=== PATIENT | female | born 1970 | race Caucasian/White ===

== ENCOUNTER 2016-09-28 08:23 | Observation (INO) | payer OTHER ==
[2016-09-28] MEDS ORDERED: SODIUM CHLORIDE 0.9% 1,000 ML IV STA (08:44)
[2016-09-28 09:18] LABS: Appearance,Urine Cloudy (Clear); Bacteria,Urine Occasional /hpf; Bilirubin,Urine Negative (Negative); Glucose,Urine (UA) Negative (Negative); Ketones,Urine Negative (Negative); Leukocyte Esterase,Urine Large (Negative); Nitrite,Urine Positive (Negative); PH, Urine 6.5 (5.0-8.0); Particle Count 17429; Protein,Urine Trace (Negative); Specific Gravity,Urine 1.016 (1.001-1.035); Squamous Epithelial Cell,Urine 15 /hpf (0-4); UA Billing (MACRO vs. MICRO) MICRO; WBC,Urine 38 /hpf (0-5)
[2016-09-28] MEDS ORDERED: MORPHINE SULFATE 4 MG/ML SYRINGE IVP STA (09:20)
[2016-09-28 09:21] LABS: Basophils % (A) 0 %; CHCM 35.5; Eosinophils # (A) 0.1 k/uL (0-0.7); Eosinophils % (A) 1 %; HCT 42.1 % (34.0-46.0); HDW 2.54; HGB 14.7 gm/dL (11.4-16.0); Luc # (Auto) 0.15; Luc % (Auto) 2; Lymphocytes # (A) 1.8 k/uL (1.0-4.8); Lymphocytes % (A) 25 %; MCH 31.6 pg (25.0-35.0); MCHC 34.8 g/dL (31.0-37.0); MCV 90.6 fL (80.0-100.0); Mean Platelet Volume 7.1; Monocytes # (A) 0.3 k/uL (0-1.0); Monocytes % (A) 5 %; Neutrophils # (A) 4.7 k/uL (1.3-7.7); Neutrophils % (A) 67 %; RBC 4.65 m/uL (3.80-5.40); RDW 12.4 % (11.5-15.5); WBC 7.1 k/uL (3.8-10.6); WBC (Perox) 7.48
--- NOTE | 2016-09-28 09:24 | ED ---
Chest Pain HPI <Daniel Londono - Last Filed: 09/28/16 13:55> - General Source: patient, RN notes reviewed Mode of arrival: wheelchair Limitations: no limitations <Leeanne Flores - Last Filed: 09/28/16 15:46> - General Chief Complaint: Chest Pain Stated Complaint: Chest Pain Time Seen by Provider: 09/28/16 08:43 - History of Present Illness Initial Comments: Patient is a 46-year-old female presents to the emergency room for evaluation of vomiting and chest pain. Patient states Tuesday and Tuesday she began having symptoms of vomiting and diarrhea. Patient states yesterday while she was at work she was starting to feel better, the beginning half of the day then began developing vomiting and diarrhea around 6pm. Patient states she has been having increased chest pain since the vomiting began last night. Patient does admit that she was here a few months ago for pleurisy. Patient states she's having similar pain. Patient states the pain starts from her midsternal area and radiates to the left side of her chest to her left arm. Patient states the pain is worse every time she vomits. Patient states pain is worse when she takes a deep breath or presses over her chest. Patient states she is unable to keep down any food because of the vomiting and diarrhea. Patient denies recent travel out of the country, recent antibiotics or sick contacts. Patient denies fevers or chills. Patient denies abdominal pain. Patient denies headache or dizziness. (Leeanne Flores) - Related Data Home Medications Medication Instructions Recorded Confirmed Acetaminophen [Tylenol] 1,000 mg PO Q4-6H PRN 09/28/16 09/28/16 Allergies Allergy/AdvReac Type Severity Reaction Status Date / Time hydrocodone bitartrate Allergy Hallucinati Verified 09/28/16 09:30 [From Vicodin] ons Review of Systems ROS Other: All systems not noted in ROS Statement are negative. <Daniel Londono - Last Filed: 09/28/16 13:55> ROS Other: All systems not noted in ROS Statement are negative. <Leeanne Flores - Last Filed: 09/28/16 15:46> ROS Statement: Those systems with pertinent positive or pertinent negative responses have been documented in the HPI. EKG Findings - EKG Comments: EKG Findings:: Normal sinus rhythm, ventricular rate 80 bpm, MA interval 158 ms , QRS duration 84 ms, QT/QTC 376/433 ms <Leeanne Flores - Last Filed: 09/28/16 15:46> Past Medical History Past Medical History: No Reported History, Cancer Additional Past Medical History / Comment(s): ovarian hx of anorexia as a teen ager History of Any Multi-Drug Resistant Organisms: None Reported Past Surgical History: Cholecystectomy, Hysterectomy Past Anesthesia/Blood Transfusion Reactions: No Reported Reaction Past Psychological History: Anxiety Smoking Status: Current every day smoker Past Alcohol Use History: None Reported Past Drug Use History: None Reported - Past Family History Mother Family Medical History: Diabetes Mellitus Father Family Medical History: Coronary Artery Disease (CAD), Hypertension <Leeanne Flores - Last Filed: 09/28/16 15:46> General Exam <Daniel Londono - Last Filed: 09/28/16 13:55> Limitations: no limitations General appearance: alert, in no apparent distress Head exam: Present: atraumatic, normocephalic, normal inspection Eye exam: Present: normal appearance ENT exam: Present: normal exam Neck exam: Present: normal inspection Respiratory exam: Present: normal lung sounds bilaterally, chest wall tenderness (Reproducible midsternal chest wall tenderness on palpation). Absent : respiratory distress Cardiovascular Exam: Present: regular rate, normal rhythm, normal heart sounds GI/Abdominal exam: Present: soft, normal bowel sounds. Absent: distended, tenderness, guarding, rebound, rigid Extremities exam: Present: normal inspection Back exam: Present: normal inspection Neurological exam: Present: alert, oriented X3, CN II-XII intact, normal gait Psychiatric exam: Present: normal affect, normal mood Skin exam: Present: warm, dry, intact, normal color. Absent: rash <Leeanne Flores - Last Filed: 09/28/16 15:46> - General Exam Comments Initial Comments: Sitting in exam room, no acute distress. (Leeanne Flores) Course <Daniel Londono - Last Filed: 09/28/16 13:55> <Leeanne Flores - Last Filed: 09/28/16 15:46> Vital Signs 09/28/16 09/28/16 09/28/16 08:26 10:50 12:27 Temperature 97.5 F L 98.0 F Pulse Rate 85 71 87 Respiratory 18 14 14 Rate Blood Pressure 92/62 105/67 107/58 O2 Sat by Pulse 98 94 L 94 L Oximetry 09/28/16 09/28/16 02 13:17 13:27 13:30 Temperature Pulse Rate 66 66 70 Respiratory 15 Rate Blood Pressure 96/63 O2 Sat by Pulse 94 L Oximetry 09/28/16 09/28/16 09/28/16 14:50 15:16 15:33 Temperature 96.9 F L 97.1 F L Pulse Rate 65 62 Respiratory 15 14 Rate Blood Pressure 94/64 95/58 O2 Sat by Pulse 96 96 Oximetry - Reevaluation(s) Reevaluation #1: 09/28/16 13:55 Patient was reevaluated by myself, Dr. Londono. Patient still complains of chest discomfort. Patient states discomfort started prior to vomiting. Patient is not comfortable with discharge home. Case discussed in detail with Dr. Antonio, who will admit for hospital call. (Daniel Londono) Chest Pain MDM <Daniel Londono - Last Filed: 09/28/16 13:55> <Leeanne Flores - Last Filed: 09/28/16 15:46> - MDM Patient is a 46-year-old female presents emergency room for evaluation of chest pain and vomiting. Labs and imaging reviewed. Results discussed with patient. Patient states her symptoms have not resolved. Patient was offered GI cocktail and refused. Patient was given DuoNeb treatment and states that she is still not feeling any better. Case discussed with Dr. Londono. Dr. Londono also evaluated patient. Patient does not want to be discharged. Dr. Londono discussed case with Dr. Antonio who agreed to admit patient. (Leeanne Flores) Disposition <Daniel Londono - Last Filed: 09/28/16 13:55> Decision Date: 09/28/16 <Leeanne Flores - Last Filed: 09/28/16 15:46> Clinical Impression: Chest pain Disposition: ADMITTED IP TO THIS HOSP Condition: Stable
[2016-09-28 09:32] LABS: INR 1.1 (<1.1); Partial Thromboplastin Time 24.6 sec (22.0-30.0); Prothrombin Time 11.4 sec (9.0-12.0)
[2016-09-28] MEDS: ONDANSETRON 4 MG/2 ML VIAL IVP STA ×2 (09:33→11:36)
[2016-09-28 09:35] LABS: ALT 58 U/L (9-52); AST 93 U/L (14-36); Alkaline Phosphatase 83 U/L (38-126); Amylase 78 U/L (30-110); Anion Gap 11 mmol/L; Blood Urea Nitrogen 14 mg/dL (7-17); Calcium 9.2 mg/dL (8.4-10.2); Carbon Dioxide 25 mmol/L (22-30); Chloride 104 mmol/L (98-107); Glucose 96 mg/dL (74-99); Magnesium 2.1 mg/dL (1.6-2.3); Non-African American GFR(MDRD) >60 (>60 ml/min/1.73 sqM); Potassium 4.5 mmol/L (3.5-5.1); Sodium 140 mmol/L (137-145); Total Bilirubin 1.3 mg/dL (0.2-1.3); Total Protein 7.6 g/dL (6.3-8.2)
[2016-09-28 09:47] LABS: Creatine Kinase 83 U/L (30-135)
[2016-09-28 10:00] LABS: Creatine Kinase MB <0.2 ng/mL (0.0-2.4); Troponin I <0.012 ng/mL (0.000-0.034)
--- NOTE | 2016-09-28 10:44 | XR ---
EXAMINATION TYPE: XR chest 2V DATE OF EXAM: 09/28/2016 10:37 AM COMPARISON: Prior chest x-ray April 29, 2015. Prior CTA chest November 10, 2015. HISTORY: Chest pain and vomiting. TECHNIQUE: Frontal and lateral views of the chest are obtained. FINDINGS: There is no focal air space opacity, pleural effusion, or pneumothorax seen. The cardiac silhouette size is within normal limits. The osseous structures are intact. Cholecystectomy clips a re redemonstrated on lateral view. IMPRESSION: No acute cardiopulmonary process.
[2016-09-28] MEDS ORDERED: KETOROLAC 30 MG/ML 1 ML VIAL IVP STA (11:00)
[2016-09-28] MEDS ORDERED: RX INFO: IV CONTRAST WAS GIVEN 1 EACH MISC MISCELLANE PRN (11:19)
--- NOTE | 2016-09-28 12:15 | CT ---
EXAMINATION TYPE: CT angio chest DATE OF EXAM: 09/28/2016 11:57 AM COMPARISON: 11/10/2015 HISTORY: Chest pain CT DLP: 162.4 mGycm Automated exposure control for dose reduction was used. CONTRAST: CTA scan of the thorax is performed with IV Contrast, patient injected with 87 mL of Omnipaque 350, p ulmonary embolism protocol. . FINDINGS: LUNGS: The lungs are grossly clear, there is no concerning parenchymal mass or nodule identified. T here is no pleural effusion or pneumothorax seen. The tracheobronchial tree is patent. Subsegmental changes are seen posteriorly compatible with atelectasis. MEDIASTINUM: There is satisfactory enhancement of the pulmonary artery and its branches, there is no CT evidence for pulmonary embolism. There are no greater than 1 cm hilar or mediastinal lymph nodes. No pericardial effusion is seen. OTHER: Soft tissue fullness in the thyroid bed noted correlate for thyromegaly. Otherwise consider a denopathy. Surgical clips in the gallbladder fossa noted. IMPRESSION: NO CT EVIDENCE OF PULMONARY EMPHYSEMA. SUBSEGMENTAL CHANGES POSTERIORLY MOST LIKELY RELATED TO DEPEND ENT ATELECTASIS. SOFT TISSUE FULLNESS SURROUNDING THE THYROID BED MOST LIKELY RELATED TO THYROID ENLARGEMENT OR ADENOP ATHY. CORRELATE CLINICALLY.
[2016-09-28] MEDS ORDERED: MAG HYDROX/AL HYDROX/SIMETH 30 ML, HYOSCYAMINE ELIXIR 10 ML, CIMETIDINE HCL 300 MG, LID... PO STA ×4 (12:29)
[2016-09-28] MEDS ORDERED: IPRATROPIUM-ALBUTEROL 3 ML NEB INHALATION STA (12:49)
[2016-09-28] MEDS ORDERED: ASPIRIN 81 MG CHEW PO STA (13:55)
[2016-09-28] MEDS ORDERED: NITROGLYCERIN OINT 1 INCH/GM PACKET TOPICAL STA (13:55)
[2016-09-28] MEDS ORDERED: NALOXONE 0.4 MG/ML 1 ML VIAL IV PRN (14:55)
[2016-09-28] MEDS ORDERED: ONDANSETRON 4 MG/2 ML VIAL IVP PRN (14:55)
[2016-09-28] MEDS ORDERED: SODIUM CHLORIDE 0.9% 1,000 ML IV SCH (15:00)
[2016-09-28] MEDS: MORPHINE SULFATE 4 MG/ML SYRINGE IV PRN ×2 (18:31→23:46)
[2016-09-29] MEDS: MORPHINE SULFATE 4 MG/ML SYRINGE IV PRN ×2 (03:06→06:20)
--- NOTE | 2016-09-29 09:15 | CONS ---
DATE OF CONSULTATION: CHIEF COMPLAINT: Chest pain. Yodit is a 46-year-old lady with no significant past medical history who presented to the hospital complaining of chest discomfort. It is sharp, precordial, pleuritic, gets worse with movements and cough. She came in with very similar symptoms back in October of 2015 and was discharged home. On this admission, her D-dimer is elevated. She went on to have a CT scan of the chest that is negative for pulmonary embolism. An EKG reveals sinus rhythm without significant ST-T wave changes. Past medical history is negative for hypertension, diabetes, dyslipidemia. MEDICATIONS: None. ALLERGIES: None. Family history is negative for premature coronary artery disease. SOCIAL HISTORY: Significant for smoking. There is no EtOH abuse, or drug abuse. REVIEW OF SYSTEMS: HEENT: Unremarkable. CARDIAC: As described above. RESPIRATORY: As described above. GI: Negative. GENITOURINARY: Negative. ALLERGY/IMMUNOLOGICAL: Negative. MUSCULOSKELETAL: Significant for musculoskeletal pain. PSYCHOSOCIAL: Negative. ENDOCRINE: Negative. HEMATOLOGICAL: Negative. DERMATOLOGICAL: Negative. CONSTITUTIONAL: Negative. ONCOLOGICAL: Negative. The rest of the system review is not relevant. On exam, patient is afebrile, heart rate is 65 per minute, blood pressure is 93/50, respirations 18, O2 sat is 94% on room air. There is no jugular venous distention. Carotid upstroke is normal. There is no bruit. Chest is clear to auscultation and percussion. Heart exam reveals first and second heart sounds. No gallop. No murmur. No rub. Abdomen is soft, nontender. Exam of extremities did not reveal edema. Peripheral pulses are felt. EKG is within normal limits. Two sets of cardiac enzymes are negative. D-dimer is elevated. CT chest is negative for pulmonary embolism. ASSESSMENT: Atypical chest pain, probably musculoskeletal. The patient does not require further cardiac workup at this time. On discharge, please arrange followup with Cardiology. If necessary she may undergo an outpatient stress test. Thank you for giving us the privilege to participate in the care of this pleasant lady.
[2016-09-29] MEDS ORDERED: PANTOPRAZOLE 40 MG/10 ML VIAL IVP SCH (11:00)
[2016-09-29 11:30] VITALS: BP 95/57; PULSE 67; RESP 16; TEMP 98
[2016-09-29] MEDS ORDERED: LEVOFLOXACIN 500MG-D5W PMX 500 MG in DEXTROSE/WATER 1 100ML.BAG IVPB SCH (12:00)
--- NOTE | 2016-09-29 17:21 | P.HPIM ---
History of Present Illness H&P Date: 09/29/16 Chief Complaint: Chest pain This is a 46-year-old female with no past medical history comes in the hospital with the chest pain that started after multiple episodes of dry heaving an episode of vomiting. The emesis appears to be bilious in nature. Patient was in good health 2 days prior to admission. Stated to have multiple episodes of emesis no blood noted. Patient can to the hospital with concern for myocardial infarction as patient had some chest pain thereafter. Patient's EKG in the ER was not noted to have ST-T wave changes. Patient was admitted to rule out ACS. Cardiac enzymes were negative. At the time of examination patient denies having any chest pain. Does state to have intermittent reproducibility when patient is dry heaving. Patient was seen by cardiology. Stated to have some risk factors however can have an outpatient stress is. Patient does have some dry heaving during my examination however is able to tolerated. Review of Systems All systems: negative (Noted in HPI) Past Medical History Past Medical History: Asthma, Cancer, Chest Pain / Angina Additional Past Medical History / Comment(s): ovarian/CERVICAL CANCER(HAD SX ONLY) hx of anorexia as a teenager, PLEURISY, KIDNEY STONE(PASSES ON OWN), MIGRAINES History of Any Multi-Drug Resistant Organisms: None Reported Past Surgical History: Cholecystectomy, Hysterectomy, Orthopedic Surgery Additional Past Surgical History / Comment(s): KNEE ARTHROSCOPY Past Anesthesia/Blood Transfusion Reactions: No Reported Reaction Past Psychological History: Anxiety Smoking Status: Current every day smoker Past Alcohol Use History: None Reported Additional Past Alcohol Use History / Comment(s): STARTTED SMOKING AT AGE 15 HAS SMOKED OFF AND ON-CURRENTLY A PACK WILL LAST 5 DAYS. SMOKING CESSATION BOOKLET GIVEN TO PT Past Drug Use History: None Reported - Past Family History Mother Family Medical History: Diabetes Mellitus, Deep Vein Thrombosis (DVT) Father Family Medical History: Coronary Artery Disease (CAD), Hypertension Medications and Allergies Home Medications Medication Instructions Recorded Confirmed Type Acetaminophen [Tylenol] 1,000 mg PO Q4-6H PRN 09/28/16 09/28/16 History Allergies Allergy/AdvReac Type Severity Reaction Status Date / Time hydrocodone bitartrate Allergy Hallucinati Verified 09/28/16 09:30 [From Vicodin] ons Physical Exam Vitals: Vital Signs Temp Pulse Resp BP Pulse Ox 09/29/16 11:29 98 F 67 16 95/57 93 L 09/29/16 07:55 98.2 F 65 18 93/52 94 L 09/29/16 04:00 63 16 09/29/16 03:24 98.1 F 61 16 94/51 93 L 09/29/16 00:00 97.9 F 63 16 91/59 93 L 09/28/16 19:41 16 09/28/16 19:40 92/60 09/28/16 19:24 98.2 F 60 16 76/50 97 Intake and Output 09/29/16 09/29/16 09/29/16 06:59 14:59 22:59 Other: Voiding Method Toilet Toilet # Voids 1 Physical exam Gen. appearance oriented 3 in no distress Head is atraumatic normocephalic pupils are equal round and reactive light and accommodation neck is supple no JVD EOMI Lungs good air entry clear to auscultation no rhonchi or wheezing Heart S1-S2 heard regular rate and rhythm no murmurs appreciated Abdomen is soft nontender no organomegaly bowel sounds are intact Neurologically cranial nerves II-12 grossly intact no focal motor or sensory deficits noted Skin no abnormalities appreciated Results CBC & Chem 7: 09/28/16 08:58 09/28/16 08:58 Thrombosis Risk Factor Assmnt - Choose All That Apply Any of the Below Risk Factors Present?: Yes Each Factor Represents 1 point: Age 41-60 years, Obesity (BMI >25) Other Risk Factors: Yes Each Risk Factor Represents 2 Points: Malignancy Each Risk Factor Represents 3 Points: Family history of DVT/PE Other congenital or acquired thrombophilia - If yes, enter type in comment: No Thrombosis Risk Factor Assessment Total Risk Factor Score: 7 Thrombosis Risk Factor Assessment Level: High Risk Assessment and Plan Plan: Atypical chest pain rule out ACS Intractable nausea vomiting secondary to a viral gastroenteritis #3 ongoing tobacco use Plan Patient will be discharged home on Zofran 4 mg disintegrating tablets. Patient is recommended to rest for the next 3 days. Work note will be given. Patient is made to ambulate prior to discharge. No abnormalities were reported. Patient is to follow-up with Dr. Ceballos for an outpatient stress test to rule out underlying cardiac disease. A CT angiogram was also done which was negative.
== END 2016-09-29 17:00 | disposition home or self-care (01) ==
LOC: EC 08:23 → 3OBS 14:58
PROVIDERS: ADMIT Internal Medicine; ATTEND Internal Medicine
DX: R07.89 Other chest pain (principal); A08.4 Viral intestinal infection, unspecified; F17.200 Nicotine dependence, unspecified, uncomplicated; J45.909 Unspecified asthma, uncomplicated; Z82.49 Family history of ischemic heart disease and other diseases of the circulatory system; Z88.5 Allergy status to narcotic agent
CPT/HCPCS: 36415; 94640; 85379; 80053; 82150; 82550; 82553; 83690; 83735; 85025; 85610; 84484; 85730; 81001; 71020; 71275; 99285; 96375; 96361 ×2; G0378 ×2; J2270 ×2; Q9967; J2405 ×2; J1956; J1885; C9113; 93005; 96365; 96376

== ENCOUNTER 2017-03-28 17:54 | Emergency (ER) | payer OTHER ==
[2017-03-28] MEDS ORDERED: ONDANSETRON 4 MG/2 ML VIAL IVP STA (19:40)
[2017-03-28] MEDS ORDERED: SODIUM CHLORIDE 0.9% 2,000 ML IV STA (19:40)
[2017-03-28] MEDS ORDERED: KETOROLAC 30 MG/ML 1 ML VIAL IVP STA (19:40)
[2017-03-28] MEDS ORDERED: MORPHINE SULFATE 2 MG/ML SYRINGE IVP ONE (19:41)
--- NOTE | 2017-03-28 19:58 | ED ---
Female Urogenital HPI - General Chief complaint: Urogenital Stated complaint: Female Time Seen by Provider: 03/28/17 19:26 Source: patient, RN notes reviewed, old records reviewed Mode of arrival: ambulatory Limitations: no limitations - History of Present Illness Initial comments: This is a 46-year-old female presenting to the emergency Department chief complaint of left-sided lower back pain for the past day and half. Patient reports she thinks she may have a kidney stone. She denies seeing any blood in her urine. She reports she's been feeling nauseated and has had a couple episodes of vomiting, she also reports occasional diarrhea.. She denies any specific fever but feels chilled. She states that she's had kidney stone was passed on her own, never needing lithotripsy. Surgical history includes cholecystectomy. Patient denies any vaginal discharge or abnormal vaginal bleeding. She denies any specific abdominal pain. - Related Data Previous Rx's Medication Instructions Recorded Ciprofloxacin HCl [Cipro] 500 mg PO Q12HR 7 Days 03/28/17 Ondansetron Odt [Zofran Odt] 8 mg PO Q8HR #12 tab 03/28/17 Allergies Allergy/AdvReac Type Severity Reaction Status Date / Time hydrocodone bitartrate Allergy Rash/Hives Verified 03/28/17 20:18 [From Vicodin] Review of Systems ROS Statement: Those systems with pertinent positive or pertinent negative responses have been documented in the HPI. ROS Other: All systems not noted in ROS Statement are negative. Past Medical History Past Medical History: Asthma, Cancer, Chest Pain / Angina Additional Past Medical History / Comment(s): ovarian/CERVICAL CANCER(HAD SX ONLY) hx of anorexia as a teenager, PLEURISY, KIDNEY STONE(PASSES ON OWN), MIGRAINES History of Any Multi-Drug Resistant Organisms: None Reported Past Surgical History: Cholecystectomy, Hysterectomy, Orthopedic Surgery Additional Past Surgical History / Comment(s): KNEE ARTHROSCOPY Past Anesthesia/Blood Transfusion Reactions: No Reported Reaction Past Psychological History: Anxiety Smoking Status: Current every day smoker Past Alcohol Use History: None Reported Past Drug Use History: None Reported - Past Family History Mother Family Medical History: Diabetes Mellitus, Deep Vein Thrombosis (DVT) Father Family Medical History: Coronary Artery Disease (CAD), Hypertension General Exam - General Exam Comments Initial Comments: Well-appearing 46-year-old female. No acute distress. Limitations: no limitations General appearance: alert, in no apparent distress Head exam: Present: atraumatic, normocephalic, normal inspection Eye exam: Present: normal appearance, PERRL, EOMI. Absent: scleral icterus, conjunctival injection, periorbital swelling ENT exam: Present: normal exam, mucous membranes moist Neck exam: Present: normal inspection. Absent: tenderness, meningismus, lymphadenopathy Respiratory exam: Present: normal lung sounds bilaterally. Absent: respiratory distress, wheezes, rales, rhonchi, stridor Cardiovascular Exam: Present: regular rate, normal rhythm, normal heart sounds. Absent: systolic murmur, diastolic murmur, rubs, gallop, clicks GI/Abdominal exam: Present: soft, normal bowel sounds. Absent: distended, tenderness, guarding, rebound, rigid Extremities exam: Present: normal inspection, full ROM, normal capillary refill. Absent: tenderness, pedal edema, joint swelling, calf tenderness Back exam: Present: normal inspection, CVA tenderness (L) (minimal left sided CVA tenderness. ) Neurological exam: Present: alert, oriented X3, CN II-XII intact Psychiatric exam: Present: normal affect, normal mood Skin exam: Present: warm, dry, intact, normal color. Absent: rash Course Vital Signs 03/28/17 03/28/17 03/28/17 18:14 20:05 22:11 Temperature 97.0 F L 98.4 F 97.8 F Pulse Rate 67 88 58 L Respiratory 16 18 18 Rate Blood Pressure 97/57 112/74 89/52 O2 Sat by Pulse 98 96 95 Oximetry Medical Decision Making - Medical Decision Making 6-year-old female chief complaint of 2 days of left sided lower back pain and flank pain. Patient is concerned she has a kidney stone. Patient lab work was reviewed and negative for any abnormalities including leukocytosis. Urinalysis did show positive nitrate and white blood cells. Culture obtained. Patient be started on antibiotics for urinary tract infection. Patient was reevaluated and reports that she just still have some left lower back pain. Discussed without signs of blood in the urine less likely for concern for ureteral or kidney stone. Patient agrees. Discussed unneccesary to started to do any further imaging studies. Her KUB did show some phleboliths however these have been chronic from previous exams. Patient advised to rest and remain hydrated. Discussed close follow-up with primary care physician. Patient understands treatment plan will comply. Return parameters were discussed. - Lab Data Result diagrams: 03/28/17 20:25 03/28/17 20:25 Lab Results 03/28/17 03/28/17 03/28/17 Range/Units 20:25 20:25 20:37 WBC 9.8 (3.8-10.6) k/uL RBC 4.74 (3.80-5.40) m/uL Hgb 14.8 (11.4-16.0) gm/dL Hct 44.2 (34.0-46.0) % MCV 93.3 (80.0-100.0) fL MCH 31.3 (25.0-35.0) pg MCHC 33.5 (31.0-37.0) g/dL RDW 13.4 (11.5-15.5) % Plt Count 281 (150-450) k/uL Neutrophils % 40 % Lymphocytes % 47 % Monocytes % 6 % Eosinophils % 4 % Basophils % 1 % Neutrophils # 3.9 (1.3-7.7) k/uL Lymphocytes # 4.6 (1.0-4.8) k/uL Monocytes # 0.6 (0-1.0) k/uL Eosinophils # 0.4 (0-0.7) k/uL Basophils # 0.1 (0-0.2) k/uL Sodium 141 (137-145) mmol/L Potassium 4.2 (3.5-5.1) mmol/L Chloride 106 (98-107) mmol/L Carbon Dioxide 24 (22-30) mmol/L Anion Gap 11 mmol/L BUN 11 (7-17) mg/dL Creatinine 0.92 (0.52-1.04) mg/dL Est GFR (MDRD) Af Amer >60 (>60 ml/min/1.73 sqM) Est GFR (MDRD) Non-Af >60 (>60 ml/min/1.73 sqM) Glucose 85 (74-99) mg/dL Calcium 9.5 (8.4-10.2) mg/dL Total Bilirubin 0.5 (0.2-1.3) mg/dL AST 24 (14-36) U/L ALT 27 (9-52) U/L Alkaline Phosphatase 71 (38-126) U/L Total Protein 7.8 (6.3-8.2) g/dL Albumin 4.4 (3.5-5.0) g/dL Amylase 106 (30-110) U/L Lipase 376 H (23-300) U/L Urine Color Light Yellow Urine Appearance Cloudy H (Clear) Urine pH 6.0 (5.0-8.0) Ur Specific [place] 1.005 (1.001-1.035) Urine Protein Negative (Negative) Urine Glucose (UA) Negative (Negative) Urine Ketones Negative (Negative) Urine Blood Negative (Negative) Urine Nitrite Positive H (Negative) Urine Bilirubin Negative (Negative) Urine Urobilinogen <2.0 (<2.0) mg/dL Ur Leukocyte Esterase Small H (Negative) Urine WBC 10 H (0-5) /hpf Ur Squamous Epith Cells 4 (0-4) /hpf - Radiology Data Radiology results: report reviewed Bilateral, effusions or unchanged. I will exam. Could relate to phleboliths. No acute bowel gas pattern. Disposition Clinical Impression: Urinary tract infection Disposition: HOME SELF-CARE Condition: Good Instructions: Urinary Tract Infection in Women (ED) Additional Instructions: Patient denies to follow-up with her primary care physician. Rest and remain hydrated. Take antibiotics as prescribed. Motrin or Tylenol for pain. Return to the emergency department if any alarming signs or occur. Prescriptions: Ciprofloxacin HCl [Cipro] 500 mg PO Q12HR 7 Days Ondansetron Odt [Zofran Odt] 8 mg PO Q8HR #12 tab Referrals: None,Stated [Primary Care Provider] - 1-2 days Anh Hobbs MD [STAFF PHYSICIAN] - 1-2 days Time of Disposition: 21:24
[2017-03-28 20:06] VITALS: RESP 18
--- NOTE | 2017-03-28 20:28 | XR ---
EXAMINATION TYPE: XR KUB DATE OF EXAM: 03/28/2017 COMPARISON: 04/29/2015 HISTORY: Left flank pain TECHNIQUE: 2 views FINDINGS: There is a 5 mm calcification over the left mid abdomen at the L4-5 level. The bowel gas pa ttern is normal. There is no sign of intestinal obstruction or pneumoperitoneum. There are clips from cholecystectomy. Lung bases are clear. There is a rounded 5 mm calcification over the right sacrum. IMPRESSION: Bilateral calcifications are unchanged compared to old exam and could relate to phlebolit hs.. Nonacute bowel gas pattern.
[2017-03-28 20:49] LABS: ALT 27 U/L (9-52); AST 24 U/L (14-36); Alkaline Phosphatase 71 U/L (38-126); Amylase 106 U/L (30-110); Anion Gap 11 mmol/L; Blood Urea Nitrogen 11 mg/dL (7-17); Calcium 9.5 mg/dL (8.4-10.2); Carbon Dioxide 24 mmol/L (22-30); Chloride 106 mmol/L (98-107); Glucose 85 mg/dL (74-99); Non-African American GFR(MDRD) >60 (>60 ml/min/1.73 sqM); Potassium 4.2 mmol/L (3.5-5.1); Sodium 141 mmol/L (137-145); Total Bilirubin 0.5 mg/dL (0.2-1.3); Total Protein 7.8 g/dL (6.3-8.2)
[2017-03-28 20:53] LABS: Basophils # (A) 0.1 k/uL (0-0.2); Basophils % (A) 1 %; CH 32.6; CHCM 35.1; Eosinophils # (A) 0.4 k/uL (0-0.7); Eosinophils % (A) 4 %; HCT 44.2 % (34.0-46.0); HDW 2.58; HGB 14.8 gm/dL (11.4-16.0); Luc % (Auto) 2; Lymphocytes # (A) 4.6 k/uL (1.0-4.8); Lymphocytes % (A) 47 %; MCH 31.3 pg (25.0-35.0); MCHC 33.5 g/dL (31.0-37.0); MCV 93.3 fL (80.0-100.0); Mean Platelet Volume 7.6; Monocytes # (A) 0.6 k/uL (0-1.0); Monocytes % (A) 6 %; Neutrophils # (A) 3.9 k/uL (1.3-7.7); Neutrophils % (A) 40 %; RBC 4.74 m/uL (3.80-5.40); RDW 13.4 % (11.5-15.5); WBC 9.8 k/uL (3.8-10.6); WBC (Perox) 9.31
[2017-03-28 21:00] LABS: Appearance,Urine Cloudy (Clear); Bilirubin,Urine Negative (Negative); Glucose,Urine (UA) Negative (Negative); Ketones,Urine Negative (Negative); Leukocyte Esterase,Urine Small (Negative); Nitrite,Urine Positive (Negative); Particle Count 29344; Protein,Urine Negative (Negative); Specific Gravity,Urine 1.005 (1.001-1.035); Squamous Epithelial Cell,Urine 4 /hpf (0-4); UA Billing (MACRO vs. MICRO) MICRO; Urobilinogen,Urine <2.0 mg/dL (<2.0); WBC,Urine 10 /hpf (0-5)
[2017-03-28] MEDS ORDERED: CIPROFLOXACIN HCL 500 MG TAB PO STA (21:25)
[2017-03-28] MEDS ORDERED: MORPHINE SULFATE 4 MG/ML SYRINGE IVP STA (21:26)
[2017-03-28 22:11] VITALS: BP 89/52; PULSE 58; TEMP 97.8
== END 2017-03-28 22:15 | disposition home or self-care (01) ==
LOC: EC 17:54
DX: N39.0 Urinary tract infection, site not specified (principal); I87.8 Other specified disorders of veins; R82.99 Other abnormal findings in urine; R11.2 Nausea with vomiting, unspecified; F17.200 Nicotine dependence, unspecified, uncomplicated; Z88.5 Allergy status to narcotic agent
CPT/HCPCS: 36415; 80053; 82150; 83690; 85025; 81001; 87086; 87077; 87186; 74000; 99284; 96374; 96375 ×2; 96376; 96361 ×2; J2270 ×2; J2405; J1885

== ENCOUNTER 2017-08-21 17:00 | Emergency (ER) | payer OTHER ==
[2017-08-21] MEDS ORDERED: IBUPROFEN 800 MG TAB PO STA (17:27)
[2017-08-21] MEDS ORDERED: ACETAMINOPHEN TAB 500 MG TAB PO STA (17:27)
--- NOTE | 2017-08-21 17:33 | ED ---
URI HPI - General Chief Complaint: Upper Respiratory Infection Stated Complaint: Flu Symptoms Time Seen by Provider: 08/21/17 17:18 Source: patient, RN notes reviewed Mode of arrival: ambulatory Limitations: no limitations - History of Present Illness Initial Comments: This a 47-year-old female presents emergency Department chief complaint fever cough congestion. Patient states symptoms started this morning. She states that her family has been sick with similar symptoms. Patient states she took Excedrin around noon does not take any Tylenol or Motrin for fever. She has no shortness of breath denies chest pain. She has complaints of low back pain, headache and diffuse body aches. Patient states she does have some mild dysuria. Denies any hematuria. Patient has sore throat, ear pain. - Related Data Home Medications Medication Instructions Recorded Confirmed Cranberry Fruit Extract [Cranberry] 500 mg PO DAILY 08/21/17 08/21/17 Cyanocobalamin (Vitamin B-12) 1,000 mcg PO DAILY 08/21/17 08/21/17 [Vitamin B-12] Multivitamins, Thera [Multivitamin 1 tab PO DAILY 08/21/17 08/21/17 (formulary)] Previous Rx's Medication Instructions Recorded Oseltamivir [Tamiflu] 75 mg PO Q12HR #10 cap 08/21/17 Allergies Allergy/AdvReac Type Severity Reaction Status Date / Time hydrocodone bitartrate Allergy Rash/Hives Verified 08/21/17 17:43 [From Vicodin] Review of Systems ROS Statement: Those systems with pertinent positive or pertinent negative responses have been documented in the HPI. ROS Other: All systems not noted in ROS Statement are negative. Past Medical History Past Medical History: Asthma, Cancer, Chest Pain / Angina Additional Past Medical History / Comment(s): ovarian/CERVICAL CANCER(HAD SX ONLY) hx of anorexia as a teenager, PLEURISY, KIDNEY STONE(PASSES ON OWN), MIGRAINES History of Any Multi-Drug Resistant Organisms: None Reported Past Surgical History: Cholecystectomy, Hysterectomy, Orthopedic Surgery Additional Past Surgical History / Comment(s): KNEE ARTHROSCOPY Past Anesthesia/Blood Transfusion Reactions: No Reported Reaction Past Psychological History: Anxiety Smoking Status: Current every day smoker Past Alcohol Use History: None Reported Past Drug Use History: None Reported - Past Family History Mother Family Medical History: Diabetes Mellitus, Deep Vein Thrombosis (DVT) Father Family Medical History: Coronary Artery Disease (CAD), Hypertension General Exam Limitations: no limitations General appearance: alert, in no apparent distress Head exam: Present: atraumatic, normocephalic, normal inspection Eye exam: Present: normal appearance, PERRL, EOMI. Absent: scleral icterus, conjunctival injection, periorbital swelling ENT exam: Present: normal exam, normal oropharynx, mucous membranes moist, TM's normal bilaterally, normal external ear exam Neck exam: Present: normal inspection, full ROM. Absent: tenderness, meningismus, lymphadenopathy Respiratory exam: Present: normal lung sounds bilaterally. Absent: respiratory distress, wheezes, rales, rhonchi, stridor Cardiovascular Exam: Present: regular rate, normal rhythm, normal heart sounds. Absent: systolic murmur, diastolic murmur, rubs, gallop, clicks GI/Abdominal exam: Present: soft, normal bowel sounds. Absent: distended, tenderness, guarding, rebound, rigid Back exam: Absent: CVA tenderness (R), CVA tenderness (L) Neurological exam: Present: alert, oriented X3, CN II-XII intact Skin exam: Present: warm, dry, intact, normal color. Absent: rash Course Vital Signs 08/21/17 17:15 Temperature 101.2 F H Pulse Rate 106 H Respiratory 18 Rate Blood Pressure 116/64 O2 Sat by Pulse 98 Oximetry Medical Decision Making - Medical Decision Making 47-year-old female presents emergency Department chief complaint of fever cough congestion body aches. Symptoms started today. Patient symptoms consistent with influenza. Patient was has a nasal swab and slightly refused it. Most likely not getting accurate sample. Patient's symptoms are consistent with influenza. Patient was started on Tamiflu. Patient advised take Tylenol Motrin return parameters were discussed. - Lab Data Lab Results 08/21/17 08/21/17 Range/Units 17:23 17:43 Urine Color Yellow Urine Appearance Clear (Clear) Urine pH 7.5 (5.0-8.0) Ur Specific [place] 1.008 (1.001-1.035) Urine Protein Negative (Negative) Urine Glucose (UA) Negative (Negative) Urine Ketones Negative (Negative) Urine Blood Negative (Negative) Urine Nitrite Negative (Negative) Urine Bilirubin Negative (Negative) Urine Urobilinogen <2.0 (<2.0) mg/dL Ur Leukocyte Esterase Negative (Negative) Influenza Type A RNA Not Detected (Not Detectd) Influenza Type B (PCR) Not Detected (Not Detectd) Disposition Clinical Impression: Influenza Disposition: HOME SELF-CARE Condition: Stable Instructions: Influenza (ED) Additional Instructions: Please return to the Emergency Department if symptoms worsen or any other concerns. Prescriptions: Oseltamivir [Tamiflu] 75 mg PO Q12HR #10 cap Referrals: None,Stated [Primary Care Provider] - 1-2 days Time of Disposition: 18:17
--- NOTE | 2017-08-21 17:51 | XR ---
EXAMINATION TYPE: XR chest 2V DATE OF EXAM: 08/21/2017 COMPARISON: Chest x-ray and CTA chest report September 28, 2016. HISTORY: Cough and congestion as well as fever. TECHNIQUE: Frontal and lateral views of the chest are obtained. FINDINGS: There is no focal air space opacity, pleural effusion, or pneumothorax seen. The cardiac silhouette size is within normal limits. The osseous structures are intact. Cholecystectomy clips a re noted. IMPRESSION: No suspicious acute pulmonary process.
[2017-08-21 18:07] LABS: Appearance,Urine Clear (Clear); Bilirubin,Urine Negative (Negative); Blood,Urine Negative (Negative); Color,Urine Yellow; Glucose,Urine (UA) Negative (Negative); Ketones,Urine Negative (Negative); Leukocyte Esterase,Urine Negative (Negative); Nitrite,Urine Negative (Negative); PH, Urine 7.5 (5.0-8.0); Protein,Urine Negative (Negative); Specific Gravity,Urine 1.008 (1.001-1.035); Urobilinogen,Urine <2.0 mg/dL (<2.0)
[2017-08-21 18:49] VITALS: BP 97/64; PULSE 89; RESP 16; TEMP 98.9
== END 2017-08-21 18:49 | disposition home or self-care (01) ==
LOC: EC 17:00
DX: J11.1 Influenza due to unidentified influenza virus with other respiratory manifestations (principal); F17.200 Nicotine dependence, unspecified, uncomplicated; Z85.41 Personal history of malignant neoplasm of cervix uteri; Z79.899 Other long term (current) drug therapy; Z88.5 Allergy status to narcotic agent
CPT/HCPCS: 71046; 81003; 87502; 99283

== ENCOUNTER 2017-11-27 12:02 | Emergency (ER) | payer OTHER ==
--- NOTE | 2017-11-27 12:19 | ED ---
General Adult HPI - General Chief complaint: Headache Stated complaint: Headache Time Seen by Provider: 11/27/17 12:11 Source: patient, RN notes reviewed, old records reviewed Mode of arrival: ambulatory Limitations: no limitations - History of Present Illness Initial comments: This is a 47-year-old female the ER for evasive headache. Patient states she has a posterior headache and associated migraine headaches. Patient has history of migraines. Patient also has history of head trauma to the posterior occiput when she was a young child. He states his headache 5 days with no help with normal medications. She states she does come to the ER about once a year for headaches. But no prior recent ER visits. Patient states her headache is mildly different than her normal migraines as her normal migraines are anterior entered current headache is posterior. Mild nausea no vomiting. - Related Data Home Medications Medication Instructions Recorded Confirmed Cranberry Fruit Extract [Cranberry] 500 mg PO DAILY 08/21/17 08/21/17 Cyanocobalamin (Vitamin B-12) 1,000 mcg PO DAILY 08/21/17 08/21/17 [Vitamin B-12] Multivitamins, Thera [Multivitamin 1 tab PO DAILY 08/21/17 08/21/17 (formulary)] Previous Rx's Medication Instructions Recorded Oseltamivir [Tamiflu] 75 mg PO Q12HR #10 cap 08/21/17 Allergies Allergy/AdvReac Type Severity Reaction Status Date / Time hydrocodone bitartrate Allergy Rash/Hives Verified 11/27/17 12:08 [From Vicodin] Review of Systems ROS Statement: Those systems with pertinent positive or pertinent negative responses have been documented in the HPI. ROS Other: All systems not noted in ROS Statement are negative. Past Medical History Past Medical History: Asthma, Cancer, Chest Pain / Angina Additional Past Medical History / Comment(s): ovarian/CERVICAL CANCER(HAD SX ONLY) hx of anorexia as a teenager, PLEURISY, KIDNEY STONE(PASSES ON OWN), MIGRAINES History of Any Multi-Drug Resistant Organisms: None Reported Past Surgical History: Cholecystectomy, Hysterectomy, Orthopedic Surgery Additional Past Surgical History / Comment(s): KNEE ARTHROSCOPY Past Anesthesia/Blood Transfusion Reactions: No Reported Reaction Past Psychological History: Anxiety Smoking Status: Current every day smoker Past Alcohol Use History: None Reported Past Drug Use History: None Reported - Past Family History Mother Family Medical History: Diabetes Mellitus, Deep Vein Thrombosis (DVT) Father Family Medical History: Coronary Artery Disease (CAD), Hypertension General Exam Limitations: no limitations General appearance: alert, in no apparent distress Head exam: Present: atraumatic, normocephalic, normal inspection Eye exam: Present: normal appearance, PERRL, EOMI. Absent: scleral icterus, conjunctival injection, periorbital swelling ENT exam: Present: normal exam, mucous membranes moist Neck exam: Present: normal inspection. Absent: tenderness, meningismus, lymphadenopathy Respiratory exam: Present: normal lung sounds bilaterally. Absent: respiratory distress, wheezes, rales, rhonchi, stridor Cardiovascular Exam: Present: regular rate, normal rhythm, normal heart sounds. Absent: systolic murmur, diastolic murmur, rubs, gallop, clicks GI/Abdominal exam: Present: soft, normal bowel sounds. Absent: distended, tenderness, guarding, rebound, rigid Extremities exam: Present: normal inspection, full ROM, normal capillary refill. Absent: tenderness, pedal edema, joint swelling, calf tenderness Back exam: Present: normal inspection Neurological exam: Present: alert, oriented X3, CN II-XII intact Psychiatric exam: Present: normal affect, normal mood Skin exam: Present: warm, dry, intact, normal color. Absent: rash Course Vital Signs 11/27/17 12:06 Temperature 98.3 F Pulse Rate 93 Respiratory 20 Rate Blood Pressure 104/59 O2 Sat by Pulse 98 Oximetry - Reevaluation(s) Reevaluation #1: 11/27/17 13:43 Patient has no resolution headache after first medication treatment Reevaluation #2: 11/27/17 13:43 Patient is improved headache at this time Medical Decision Making - Medical Decision Making 47 female DEL with acute on chronic headache 5 days. Headache at this time has resolved. CT is negative and patient can be discharged home - Radiology Data Radiology results: report reviewed (CT brain is negative for acute disease), image reviewed Disposition Clinical Impression: Migraine, Headache Disposition: HOME SELF-CARE Condition: Good Instructions: Acute Headache (ED) Referrals: None,Stated [Primary Care Provider] - 1-2 days
[2017-11-27] MEDS ORDERED: methylPREDNISolone SOD SUCCI 250 MG in SODIUM CHLORIDE 0.9% 100 ML IVPB STA (12:23)
[2017-11-27] MEDS ORDERED: METOCLOPRAMIDE 5 MG/ML 2 ML VIAL IVP STA (12:23)
[2017-11-27] MEDS ORDERED: diphenhydrAMINE 50 MG/ML 1 ML VIAL IVP STA (12:23)
[2017-11-27] MEDS ORDERED: SODIUM CHLORIDE 0.9% 500 ML IV STA (12:23)
[2017-11-27] MEDS ORDERED: MORPHINE SULFATE 4MG/4ML SYRG IVP STA (12:23)
--- NOTE | 2017-11-27 13:06 | CT ---
EXAMINATION TYPE: CT brain wo con DATE OF EXAM: 11/27/2017 COMPARISON: NONE HISTORY: FIORE for [address] DLP: 926.5 mGycm Automated exposure control for dose reduction was used. FINDINGS: Central structures are midline. There is no evidence of hydrocephalus. No acute focal lesion, mass ef fect or midline shift is seen. I do not see evidence of intracranial blood. There is mucoperiosteal thickening involving the maxillary sinuses and ethmoid sinuses bilaterally. T he mastoids are clear. The bony calvarium is intact. IMPRESSION: 1. NO ACUTE INTRACRANIAL ABNORMALITY. 2. 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
[2017-11-27] MEDS ORDERED: DIAZEPAM 5 MG/ML 2 ML INJ IVP STA (13:36)
[2017-11-27] MEDS ORDERED: PROCHLORPERAZINE 10 MG TAB PO STA (13:36)
[2017-11-27] MEDS ORDERED: KETOROLAC 30 MG/ML 1 ML VIAL IVP STA (13:36)
[2017-11-27 14:39] VITALS: BP 96/56; PULSE 68; RESP 16; TEMP 98.8
== END 2017-11-27 14:46 | disposition home or self-care (01) ==
LOC: EC 12:02
DX: G43.909 Migraine, unspecified, not intractable, without status migrainosus (principal); F17.200 Nicotine dependence, unspecified, uncomplicated; Z85.41 Personal history of malignant neoplasm of cervix uteri; Z79.899 Other long term (current) drug therapy; Z88.5 Allergy status to narcotic agent
CPT/HCPCS: 70450; 99284; 96365; 96375 ×5; S0183; J1200; J2765; J2930; J3360; J1885; J2270

== ENCOUNTER 2017-11-29 23:30 | Emergency (ER) | payer OTHER ==
[2017-11-30] MEDS ORDERED: diphenhydrAMINE 50 MG/ML 1 ML VIAL ONE (01:39)
[2017-11-30] MEDS ORDERED: KETOROLAC 30 MG/ML 1 ML VIAL ONE (01:39)
[2017-11-30] MEDS ORDERED: ONDANSETRON 4 MG/2 ML VIAL ONE (01:39)
[2017-11-30] MEDS ORDERED: SUMAtriptan SUCCINATE 6 MG/0.5 ML VIAL SQ ONE (01:39)
[2017-11-30] MEDS ORDERED: MORPHINE SULFATE 4 MG/ML SYRINGE ONE ×2 (01:39)
[2017-11-30] MEDS ORDERED: METOCLOPRAMIDE 5 MG/ML 2 ML VIAL ONE (01:39)
== END 2017-11-30 04:20 | disposition home or self-care (01) ==
LOC: EC 23:30
DX: G43.909 Migraine, unspecified, not intractable, without status migrainosus (principal); F17.200 Nicotine dependence, unspecified, uncomplicated; Z88.5 Allergy status to narcotic agent
CPT/HCPCS: 99283; 96374; 96375 ×4; 96376; 96361; 96372; J3030; J2270; J1200; J2765; J2405; J1885

== ENCOUNTER 2017-12-05 11:25 | Emergency (ER) | payer OTHER ==
[2017-12-05 11:34] VITALS: RESP 18
[2017-12-05] MEDS ORDERED: KETOROLAC 30 MG/ML 1 ML VIAL IVP STA (11:50)
[2017-12-05] MEDS ORDERED: SODIUM CHLORIDE 0.9% 1,000 ML IV ONE (11:50)
--- NOTE | 2017-12-05 11:54 | ED ---
Abdominal Pain HPI - General Chief Complaint: Abdominal Pain Stated Complaint: Abd Pain/Back Pain Time Seen by Provider: 12/05/17 11:36 Source: patient Mode of arrival: ambulatory Limitations: no limitations - History of Present Illness Initial Comments: Is a 47-year-old female with a history of migraines and ovarian cancer post hysterectomy and rectum he presents emergency department for generalized abdominal pain and flank pain. She states that the pain started last night. She was seen here yesterday for a migraine headache and treated and did not have the symptoms at that time. She went home and stated that she didn't developed pain that seemed to follow along the costal margin and radiated down her flanks and into her back. She states it is generalized. Does not seem to be made better with anything that she does. Not made worse with eating. It does seem to be made worse with laying flat on her back. She states that she is laying on her side. She denies any nausea or vomiting. No diarrhea or constipation. She does admit to some polyuria and polydipsia. No dysuria or hematuria. No other acute complaints. - Related Data Home Medications Medication Instructions Recorded Confirmed Cranberry Fruit Extract [Cranberry] 500 mg PO DAILY 08/21/17 12/05/17 Cyanocobalamin (Vitamin B-12) 1,000 mcg PO DAILY 08/21/17 12/05/17 [Vitamin B-12] Multivitamins, Thera [Multivitamin 1 tab PO DAILY 08/21/17 12/05/17 (formulary)] Cholecalciferol [Vitamin D3] 1,000 unit PO DAILY 12/05/17 12/05/17 L.acidoph,Paracasei, B.lactis 1 cap PO DAILY 12/05/17 12/05/17 [Probiotic] Allergies Allergy/AdvReac Type Severity Reaction Status Date / Time hydrocodone bitartrate AdvReac Confusion Verified 12/05/17 11:41 [From Vicodin] BLACK OLIVES Allergy Swelling Uncoded 12/05/17 11:41 Review of Systems ROS Statement: Those systems with pertinent positive or pertinent negative responses have been documented in the HPI. ROS Other: All systems not noted in ROS Statement are negative. Past Medical History Past Medical History: Asthma, Cancer, Chest Pain / Angina Additional Past Medical History / Comment(s): ovarian/CERVICAL CANCER(HAD SX ONLY) hx of anorexia as a teenager, PLEURISY, KIDNEY STONE(PASSES ON OWN), MIGRAINES History of Any Multi-Drug Resistant Organisms: None Reported Past Surgical History: Cholecystectomy, Hysterectomy, Orthopedic Surgery Additional Past Surgical History / Comment(s): KNEE ARTHROSCOPY Past Anesthesia/Blood Transfusion Reactions: No Reported Reaction Past Psychological History: Anxiety Smoking Status: Current every day smoker Past Alcohol Use History: None Reported Past Drug Use History: None Reported - Past Family History Mother Family Medical History: Diabetes Mellitus, Deep Vein Thrombosis (DVT) Father Family Medical History: Coronary Artery Disease (CAD), Hypertension General Exam - General Exam Comments Initial Comments: Constitutional: Awake alert Appears comfortable Head: Normocephalic atraumatic Eyes: no conjunctival injection No scleral icterus EOMI Neck: No JVD Supple Heart: Regular rate rhythm normal S1-S2 no murmurs Lungs: Clear to auscultation bilaterally No wheezing No rales Abdomen: Soft nondistended generalized mild tenderness without rebound or guarding Extremities: Non edematous DP pulses intact Radial pulses intact Neuro: A&Ox3 No focal neurologic deficits Psych: Appropriate mood and affect Limitations: no limitations Course Vital Signs 12/05/17 12/05/17 11:31 13:12 Temperature 97.2 F L 97.9 F Pulse Rate 66 64 Respiratory 18 18 Rate Blood Pressure 121/75 118/65 O2 Sat by Pulse 100 99 Oximetry Medical Decision Making - Medical Decision Making This is a 47-year-old female who presents emergency department for epigastric abdominal pain radiating to her back and flank. Patient was evaluated with blood work and an x-ray. X-ray was unremarkable. Blood work also showed a very mild elevation in her lipase to 370. is had this previously with unclear etiology. The location of her pain is roughly consistent with pancreatitis however she does not have a severe amount of pain. Lipase is not elevated enough to consider this pancreatitis however I did advise the patient to continue with purely liquid diet for the next 24 hours. [id number] pain medication and close follow-up with her primary doctor. If she has worsening or changing symptoms she can return the emergency Department. All questions were answered. - Lab Data Result diagrams: 12/05/17 12:01 12/05/17 12:01 Lab Results 12/05/17 12/05/17 12/05/17 Range/Units 12:00 12:01 12:01 WBC 11.1 H (3.8-10.6) k/uL RBC 4.89 (3.80-5.40) m/uL Hgb 15.2 (11.4-16.0) gm/dL Hct 44.2 (34.0-46.0) % MCV 90.5 (80.0-100.0) fL MCH 31.0 (25.0-35.0) pg MCHC 34.3 (31.0-37.0) g/dL RDW 12.4 (11.5-15.5) % Plt Count 305 (150-450) k/uL Neutrophils % 49 % Lymphocytes % 38 % Monocytes % 6 % Eosinophils % 5 % Basophils % 1 % Neutrophils # 5.4 (1.3-7.7) k/uL Lymphocytes # 4.2 (1.0-4.8) k/uL Monocytes # 0.7 (0-1.0) k/uL Eosinophils # 0.5 (0-0.7) k/uL Basophils # 0.1 (0-0.2) k/uL Sodium 140 (137-145) mmol/L Potassium 4.5 (3.5-5.1) mmol/L Chloride 100 (98-107) mmol/L Carbon Dioxide 26 (22-30) mmol/L Anion Gap 14 mmol/L BUN 15 (7-17) mg/dL Creatinine 0.83 (0.52-1.04) mg/dL Est GFR (CKD-EPI)AfAm >90 (>60 ml/min/1.73 sqM) Est GFR (CKD-EPI)NonAf 85 (>60 ml/min/1.73 sqM) Glucose 82 (74-99) mg/dL POC Glucose (mg/dL) 93 (75-99) mg/dL POC Glu [employer] ID Ian Alexander Calcium 10.0 (8.4-10.2) mg/dL Total Bilirubin 0.6 (0.2-1.3) mg/dL AST 31 (14-36) U/L ALT 22 (9-52) U/L Alkaline Phosphatase 81 (38-126) U/L Total Protein 8.1 (6.3-8.2) g/dL Albumin 4.7 (3.5-5.0) g/dL Lipase 315 H (23-300) U/L Urine Color Urine Appearance (Clear) Urine pH (5.0-8.0) Ur Specific [place] (1.001-1.035) Urine Protein (Negative) Urine Glucose (UA) (Negative) Urine Ketones (Negative) Urine Blood (Negative) Urine Nitrite (Negative) Urine Bilirubin (Negative) Urine Urobilinogen (<2.0) mg/dL Ur Leukocyte Esterase (Negative) Urine RBC (0-5) /hpf Urine WBC (0-5) /hpf Ur Squamous Epith Cells (0-4) /hpf Urine Bacteria (None) /hpf Urine Mucus (None) /hpf 12/05/17 Range/Units 12:01 WBC (3.8-10.6) k/uL RBC (3.80-5.40) m/uL Hgb (11.4-16.0) gm/dL Hct (34.0-46.0) % MCV (80.0-100.0) fL MCH (25.0-35.0) pg MCHC (31.0-37.0) g/dL RDW (11.5-15.5) % Plt Count (150-450) k/uL Neutrophils % % Lymphocytes % % Monocytes % % Eosinophils % % Basophils % % Neutrophils # (1.3-7.7) k/uL Lymphocytes # (1.0-4.8) k/uL Monocytes # (0-1.0) k/uL Eosinophils # (0-0.7) k/uL Basophils # (0-0.2) k/uL Sodium (137-145) mmol/L Potassium (3.5-5.1) mmol/L Chloride (98-107) mmol/L Carbon Dioxide (22-30) mmol/L Anion Gap mmol/L BUN (7-17) mg/dL Creatinine (0.52-1.04) mg/dL Est GFR (CKD-EPI)AfAm (>60 ml/min/1.73 sqM) Est GFR (CKD-EPI)NonAf (>60 ml/min/1.73 sqM) Glucose (74-99) mg/dL POC Glucose (mg/dL) (75-99) mg/dL POC Glu [employer] ID Calcium (8.4-10.2) mg/dL Total Bilirubin (0.2-1.3) mg/dL AST (14-36) U/L ALT (9-52) U/L Alkaline Phosphatase (38-126) U/L Total Protein (6.3-8.2) g/dL Albumin (3.5-5.0) g/dL Lipase (23-300) U/L Urine Color Colorless Urine Appearance Cloudy H (Clear) Urine pH 7.0 (5.0-8.0) Ur Specific [place] 1.004 (1.001-1.035) Urine Protein Negative (Negative) Urine Glucose (UA) Negative (Negative) Urine Ketones Negative (Negative) Urine Blood Negative (Negative) Urine Nitrite Negative (Negative) Urine Bilirubin Negative (Negative) Urine Urobilinogen <2.0 (<2.0) mg/dL Ur Leukocyte Esterase Small H (Negative) Urine RBC 2 (0-5) /hpf Urine WBC 10 H (0-5) /hpf Ur Squamous Epith Cells 16 H (0-4) /hpf Urine Bacteria Few H (None) /hpf Urine Mucus Rare H (None) /hpf Disposition Clinical Impression: Abdominal pain, Elevated lipase Disposition: HOME SELF-CARE Condition: Stable Instructions: Abdominal Pain (ED) Is patient prescribed a controlled substance at d/c from ED?: No Referrals: None,Stated [Primary Care Provider] - 1-2 days
[2017-12-05 12:09] LABS: Glucose,Whole Blood 93 mg/dL (75-99)
[2017-12-05 12:16] LABS: Basophils # (A) 0.1 k/uL (0-0.2); Basophils % (A) 1 %; Eosinophils # (A) 0.5 k/uL (0-0.7); Eosinophils % (A) 5 %; HCT 44.2 % (34.0-46.0); HGB 15.2 gm/dL (11.4-16.0); Lymphocytes # (A) 4.2 k/uL (1.0-4.8); Lymphocytes % (A) 38 %; MCHC 34.3 g/dL (31.0-37.0); MCV 90.5 fL (80.0-100.0); Mean Platelet Volume 7.1; Monocytes # (A) 0.7 k/uL (0-1.0); Monocytes % (A) 6 %; Neutrophils # (A) 5.4 k/uL (1.3-7.7); Neutrophils % (A) 49 %; Platelet Count 305 k/uL (150-450); RBC 4.89 m/uL (3.80-5.40); RDW 12.4 % (11.5-15.5); WBC 11.1 k/uL (3.8-10.6)
[2017-12-05 12:23] LABS: ALT 22 U/L (9-52); AST 31 U/L (14-36); Albumin 4.7 g/dL (3.5-5.0); Alkaline Phosphatase 81 U/L (38-126); Anion Gap 14 mmol/L; Blood Urea Nitrogen 15 mg/dL (7-17); Carbon Dioxide 26 mmol/L (22-30); Chloride 100 mmol/L (98-107); Glucose 82 mg/dL (74-99); Lipase 315 U/L (23-300); Potassium 4.5 mmol/L (3.5-5.1); Sodium 140 mmol/L (137-145); Total Bilirubin 0.6 mg/dL (0.2-1.3); Total Protein 8.1 g/dL (6.3-8.2)
[2017-12-05 12:24] LABS: Appearance,Urine Cloudy (Clear); Bacteria,Urine Few /hpf; Bilirubin,Urine Negative (Negative); Blood,Urine Negative (Negative); Color,Urine Colorless; Glucose,Urine (UA) Negative (Negative); Ketones,Urine Negative (Negative); Leukocyte Esterase,Urine Small (Negative); Mucus,Urine Rare /hpf; Nitrite,Urine Negative (Negative); Protein,Urine Negative (Negative); RBC,Urine 2 /hpf (0-5); Specific Gravity,Urine 1.004 (1.001-1.035); Squamous Epithelial Cell,Urine 16 /hpf (0-4); Urobilinogen,Urine <2.0 mg/dL (<2.0); WBC,Urine 10 /hpf (0-5)
--- NOTE | 2017-12-05 12:54 | XR ---
EXAMINATION TYPE: XR abdomen 2V DATE OF EXAM: 12/05/2017 12:46 PM CLINICAL HISTORY: Generalized abdominal pain with history of nephrolithiasis TECHNIQUE: Upright and supine images of the abdomen were obtained. COMPARISON: 03/28/2017. FINDINGS: Phleboliths within the pelvis are unchanged from the prior exam of 03/28/2017 with no new ca lculi to indicate distal ureteral calculi. Evaluation for renal calculi are recommended given overlyi ng colonic debris. Moderate amount retained colonic debris is noted. Scattered gas is seen in non-dis tended small bowel loops. Gas and fecal material is seen in non-distended colon. Cholecystectomy clip s are noted within the right upper quadrant. There is no visceromegaly, pneumoperitoneum, or abnormal calcification appreciated. The lung bases are clear and the osseous structures are intact. IMPRESSION: Pelvic phleboliths are unchanged from the exam of 03/28/2017 with no new calculi identifie d. Nonobstructive bowel gas pattern.
[2017-12-05 13:16] VITALS: BP 118/65; PULSE 64; TEMP 97.9
== END 2017-12-05 13:12 | disposition home or self-care (01) ==
LOC: EC 11:25
DX: R10.13 Epigastric pain (principal); R74.8 Abnormal levels of other serum enzymes; F17.200 Nicotine dependence, unspecified, uncomplicated; Z87.442 Personal history of urinary calculi; Z85.41 Personal history of malignant neoplasm of cervix uteri; Z85.43 Personal history of malignant neoplasm of ovary; Z86.69 Personal history of other diseases of the nervous system and sense organs; Z90.49 Acquired absence of other specified parts of digestive tract; Z90.710 Acquired absence of both cervix and uterus; Z79.899 Other long term (current) drug therapy; Z88.5 Allergy status to narcotic agent; Z91.018 Allergy to other foods
CPT/HCPCS: 36415; 80053; 83690; 85025; 81001; 74019; 99284; 96374; 96361; J1885

== ENCOUNTER 2018-05-07 21:00 | Observation (INO) | payer OTHER ==
[2018-05-07] MEDS ORDERED: ASPIRIN 81 MG PO STA (21:22)
--- NOTE | 2018-05-07 21:27 | ED ---
Chest Pain HPI - General Chief Complaint: Chest Pain Stated Complaint: vomiting; pain radiating up into shoulder Time Seen by Provider: 05/07/18 21:11 Source: patient Mode of arrival: ambulatory Limitations: no limitations - History of Present Illness Initial Comments: This patient's a 48-year-old woman who presents to be evaluated for left-sided chest pain. She states that the pain had initially come on Tuesday night and stayed for number of hours and then had resolved by Tuesday. She states that it recurred this evening. She indicates the left chest and states that it is a stabbing pain, constant, severe. She has not noted worsening or relieving factors. She states the pain does radiate toward the shoulder and left arm. The patient also has had vomiting and diarrhea which have been going on also intermittently since Tuesday. She states she's had about a total of 5 episodes each of vomiting and diarrhea. She has not noted any blood or coffee- ground material. No dyspnea, diaphoresis, palpitations, lightheadedness or syncope. MD Complaint: chest pain -: hour(s) Onset: during rest Pain Location: left chest Pain Radiation: LUE Severity: severe Quality: other Consistency: constant Improves With: nothing Worsens With: nothing Anginal Symptoms: nausea, vomiting Treatments Prior to Arrival: none - Related Data Home Medications Medication Instructions Recorded Confirmed Cranberry Fruit Extract [Cranberry] 500 mg PO DAILY 08/21/17 05/07/18 Cyanocobalamin (Vitamin B-12) 1,000 mcg PO DAILY 08/21/17 05/07/18 [Vitamin B-12] Multivitamins, Thera [Multivitamin 1 tab PO DAILY 08/21/17 05/07/18 (formulary)] Cholecalciferol [Vitamin D3] 1,000 unit PO DAILY 12/05/17 05/07/18 L.acidoph,Paracasei, B.lactis 1 cap PO DAILY 12/05/17 05/07/18 [Probiotic] Acetaminophen Tab [Tylenol Tab] 600 mg PO DIRECTED PRN 05/07/18 05/07/18 Allergies Allergy/AdvReac Type Severity Reaction Status Date / Time hydrocodone bitartrate AdvReac Confusion Verified 05/07/18 21:06 [From Vicodin] BLACK OLIVES Allergy Swelling Uncoded 05/07/18 21:06 Review of Systems ROS Statement: Those systems with pertinent positive or pertinent negative responses have been documented in the HPI. ROS Other: All systems not noted in ROS Statement are negative. Constitutional: Denies: fever, chills, weakness Respiratory: Denies: cough, dyspnea Cardiovascular: Reports: chest pain. Denies: palpitations, orthopnea, edema, syncope Gastrointestinal: Reports: nausea, vomiting, diarrhea. Denies: abdominal pain, constipation, hematemesis, melena, hematochezia Genitourinary: Denies: dysuria, hematuria Musculoskeletal: Denies: back pain Skin: Denies: rash Neurological: Denies: headache, weakness, numbness EKG Findings - EKG Results: EKG: interpreted by ERMD, sinus rhythm (Rate approximately 80 bpm), normal axis , normal QRS - Blocks, [place], Hypertrophy, ST Abn: Repolarization changes or abnormalities: nonspecific abnormality, ST segment, and/or T wave Past Medical History Past Medical History: Asthma, Cancer, Chest Pain / Angina Additional Past Medical History / Comment(s): ovarian/CERVICAL CANCER(HAD SX ONLY) hx of anorexia as a teenager, PLEURISY, KIDNEY STONE(PASSES ON OWN), MIGRAINES History of Any Multi-Drug Resistant Organisms: None Reported Past Surgical History: Cholecystectomy, Hysterectomy, Orthopedic Surgery Additional Past Surgical History / Comment(s): KNEE ARTHROSCOPY Past Anesthesia/Blood Transfusion Reactions: No Reported Reaction Past Psychological History: Anxiety Smoking Status: Current some day smoker Past Alcohol Use History: None Reported Past Drug Use History: None Reported - Past Family History Mother Family Medical History: Diabetes Mellitus, Deep Vein Thrombosis (DVT) Father Family Medical History: Coronary Artery Disease (CAD), Hypertension General Exam Limitations: no limitations General appearance: alert, in no apparent distress Head exam: Present: atraumatic, normocephalic Eye exam: Present: normal appearance. Absent: scleral icterus, conjunctival injection ENT exam: Present: normal oropharynx Respiratory exam: Present: normal lung sounds bilaterally. Absent: respiratory distress, wheezes, rales, rhonchi, stridor Cardiovascular Exam: Present: regular rate, normal rhythm, normal heart sounds. Absent: systolic murmur, diastolic murmur, rubs, gallop GI/Abdominal exam: Present: soft. Absent: distended, tenderness, guarding, rebound, rigid, mass Extremities exam: Present: normal inspection, normal capillary refill. Absent: pedal edema, calf tenderness Back exam: Present: normal inspection. Absent: CVA tenderness (R), CVA tenderness (L) Neurological exam: Present: alert Skin exam: Present: warm, dry, intact, normal color. Absent: rash Course Vital Signs 05/07/18 05/07/18 05/07/18 21:02 21:28 22:15 Temperature 98.2 F Pulse Rate 79 68 Respiratory 18 18 18 Rate Blood Pressure 101/60 98/72 O2 Sat by Pulse 98 96 Oximetry 05/07/18 05/07/18 22:57 23:41 Temperature Pulse Rate 64 60 Respiratory 18 18 Rate Blood Pressure 109/75 109/73 O2 Sat by Pulse 96 97 Oximetry Disposition Clinical Impression: Chest pain Disposition: ADMITTED IP TO THIS HOSP Condition: Fair Instructions: Chest Pain (ED) Is patient prescribed a controlled substance at d/c from ED?: No Referrals: None,Stated [Primary Care Provider] - 1-2 days
[2018-05-07 21:52] LABS: Basophils # (A) 0.1 k/uL (0-0.2); Basophils % (A) 1 %; Eosinophils # (A) 0.3 k/uL (0-0.7); Eosinophils % (A) 3 %; HCT 40.5 % (34.0-46.0); HGB 13.7 gm/dL (11.4-16.0); Lymphocytes # (A) 4.1 k/uL (1.0-4.8); Lymphocytes % (A) 36 %; MCH 31.1 pg (25.0-35.0); MCHC 33.8 g/dL (31.0-37.0); Mean Platelet Volume 7.1; Monocytes # (A) 0.5 k/uL (0-1.0); Monocytes % (A) 5 %; Neutrophils # (A) 6.1 k/uL (1.3-7.7); Neutrophils % (A) 54 %; Platelet Count 265 k/uL (150-450); RDW 12.2 % (11.5-15.5); WBC 11.3 k/uL (3.8-10.6)
--- NOTE | 2018-05-07 21:59 | XR ---
EXAMINATION TYPE: XR chest 2V DATE OF EXAM: 05/07/2018 COMPARISON: 08/21/2017 HISTORY: 48-year-old female with chest pain TECHNIQUE: Frontal and lateral views FINDINGS: Heart normal size. Aorta and pelvic vasculature within normal limits. Mild interstitial prominence is unchanged. No consolidation or pleural effusion. IMPRESSION: Chronic changes, possible chronic bronchitis/asthma. No definite acute process.
[2018-05-07] MEDS ORDERED: MORPHINE SULFATE 4 MG/ML SYRINGE IV STA ×2 (22:03→23:28)
[2018-05-07 22:04] LABS: INR 1.1 (<1.2); Partial Thromboplastin Time 23.7 sec (22.0-30.0); Prothrombin Time 10.4 sec (9.0-12.0)
[2018-05-07 22:09] LABS: Albumin 4.1 g/dL (3.5-5.0); Calcium 9.3 mg/dL (8.4-10.2); Magnesium 2.1 mg/dL (1.6-2.3); Potassium 4.3 mmol/L (3.5-5.1); Total Bilirubin 0.5 mg/dL (0.2-1.3); Total Protein 7.5 g/dL (6.3-8.2)
[2018-05-07 22:10] LABS: D-Dimer 0.63 mg/L FEU (<0.60)
[2018-05-07 22:14] LABS: Creatine Kinase 224 U/L (30-135)
[2018-05-07] MEDS: SODIUM CHLORIDE 0.9% 1,000 ML IV SCH (22:15)
[2018-05-07 22:27] LABS: Creatine Kinase MB 1.3 ng/mL (0.0-2.4); Troponin I <0.012 ng/mL (0.000-0.034)
--- NOTE | 2018-05-07 23:03 | CT ---
EXAMINATION TYPE: CT chest angio for PE DATE OF EXAM: 05/07/2018 COMPARISON: 09/28/2016 HISTORY: r/o PE chest pain CT DLP: 188.90 mGycm Automated exposure control for dose reduction was used. CONTRAST: CT Chest for pulmonary embolism performed with with IV Contrast, patient injected with 80 mL of Isovu e 370. FINDINGS: There are 3-D post processed images. There is subpleural reticular nodular bilateral pulmonary infiltrate. This is more on the right side. There is no pleural effusion. There is no pericardial effusion. Thoracic aorta appears normal. There is no evidence of aneurysm or dissection. There is normal contrast opacification of the pulmonary arteries. I see no filling defects. The bony thorax appears intact.. There is no mediastinal adenopathy. There are no hilar masses. Thyroid gland is large consistent with goiter. IMPRESSION: No evidence of pulmonary embolism. Mild reticular nodular interstitial subpleural pulmonary infiltrat es is slightly more than last exam.
[2018-05-08] MEDS ORDERED: NITROGLYCERIN SL TABS 0.4 MG TAB SUBLINGUAL PRN (00:11)
[2018-05-08] MEDS ORDERED: ONDANSETRON 4 MG/2 ML VIAL IVP STA (00:25)
[2018-05-08 01:20] VITALS: BMI 24.5
--- NOTE | 2018-05-08 01:51 | P.HPIM ---
History of Present Illness H&P Date: 05/08/18 Chief Complaint: chest pain 48-year-old female with history of pleurisy. Patient presented the hospital due to worsening left-sided chest pain. She reports that started on Tuesday 2 days ago and then was resolved by Tuesday morning however the pain was atypical to her pleuritic pain in the past as it was left-sided stabbing in nature radiating to the neck and left arm. This pain recurred today she rated as 8 out of 10 in severity again stabbing in nature no relieving or aggravating factor was radiating to her neck and left arm associated with nausea and vomiting multiple times. She also reported associated diarrhea but denies any sweating headache dizziness or lightheadedness. She reports no trouble breathing. She denies any cardiac history in the past. Patient otherwise denies any coffee-ground vomiting or any bilious vomiting denies any melena or GI bleeding. Denies any abdominal pain. He denies any fevers chills, denies any recent traveling or and sent a source of food. In the emergency department initial cardiac enzymes are negative, CT angiogram of the chest was negative for acute PE, EKG showed normal sinus rhythm, Review of Systems Pertinent positives as noted in HPI. All other systems were reviewed and are negative Past Medical History Past Medical History: Asthma, Cancer, Chest Pain / Angina Additional Past Medical History / Comment(s): ovarian/CERVICAL CANCER(HAD SX ONLY) hx of anorexia as a teenager, PLEURISY, KIDNEY STONE(PASSES ON OWN), MIGRAINES History of Any Multi-Drug Resistant Organisms: None Reported Past Surgical History: Cholecystectomy, Hysterectomy, Orthopedic Surgery Additional Past Surgical History / Comment(s): KNEE ARTHROSCOPY Past Anesthesia/Blood Transfusion Reactions: No Reported Reaction Past Psychological History: Anxiety Smoking Status: Current some day smoker Past Alcohol Use History: None Reported Past Drug Use History: None Reported - Past Family History Mother Family Medical History: Diabetes Mellitus, Deep Vein Thrombosis (DVT) Father Family Medical History: Coronary Artery Disease (CAD), Hypertension Medications and Allergies Home Medications Medication Instructions Recorded Confirmed Type Cranberry Fruit Extract [Cranberry] 500 mg PO DAILY 08/21/17 05/07/18 History Cyanocobalamin (Vitamin B-12) 1,000 mcg PO DAILY 08/21/17 05/07/18 History [Vitamin B-12] Multivitamins, Thera [Multivitamin 1 tab PO DAILY 08/21/17 05/07/18 History (formulary)] Cholecalciferol [Vitamin D3] 1,000 unit PO DAILY 12/05/17 05/07/18 History L.acidoph,Paracanishai, B.lactis 1 cap PO DAILY 12/05/17 05/07/18 History [Probiotic] Acetaminophen Tab [Tylenol Tab] 600 mg PO DIRECTED PRN 05/07/18 05/07/18 History Allergies Allergy/AdvReac Type Severity Reaction Status Date / Time hydrocodone bitartrate AdvReac Confusion Verified 05/07/18 21:06 [From Vicodin] BLACK OLIVES Allergy Swelling Uncoded 05/07/18 21:06 Physical Exam Vitals: Vital Signs Temp Pulse Resp BP Pulse Ox 05/07/18 23:41 60 18 109/73 97 05/07/18 22:57 64 18 109/75 96 05/07/18 22:15 68 18 98/72 96 05/07/18 21:28 18 05/07/18 21:02 98.2 F 79 18 101/60 98 Intake and Output 05/07/18 05/07/18 05/08/18 14:59 22:59 06:59 Other: Weight 58.967 kg Constitutional: No acute distress, conversant, pleasant, well developed Eyes: Anicteric sclerae, moist conjunctiva, no lid-lag Pupils equal round reactive to light ENMT: NC/AT Oropharynx clear, no erythema, exudates Neck: Supple, FROM, no masses, or JVD No carotid bruits No thyromegaly Lungs: Clear to auscultation Clear to percussion Normal respiratory effort, no accessory muscle use Cardiovascular: Heart regular in rate and rhythm, No murmurs, gallops, or rubs No peripheral edema Abdominal: Soft Nontender, no guarding, rebound or rigidity Abdomen moving with respiration Normoactive bowel sounds No hepatomegaly, No splenomegaly No palpable mass No abdominal wall hernia noted Skin: Normal temperature, tone, texture, turgor No induration No subcutaneous nodules No rash, lesions No ulcers Extremities: No digital cyanosis No clubbing Pedal pulses intact and symmetrical Radial pulses intact and symmetrical No calf tenderness Psychiatric: Alert and oriented to person, place and time Appropriate affect fair judgment Neuro Muscles Strength 5/5 in all 4 extremities Sensation to light touch grossly present throughout Cranial nerves II-XII grossly intact No focal sensory deficits Lymphatics: no palpable cervical or supraclavicular , or inguinal lymph nodes Results CBC & Chem 7: 05/07/18 21:26 05/07/18 21:26 Labs: Abnormal Lab Results - Last 24 Hours (Table) 05/07/18 05/07/18 05/07/18 Range/Units 21:26 21:26 21:26 WBC 11.3 H (3.8-10.6) k/uL D-Dimer (<0.60) mg/L FEU Creatinine 1.06 H (0.52-1.04) mg/dL Glucose 133 H (74-99) mg/dL Total Creatine Kinase 224 H (30-135) U/L Amylase 119 H (30-110) U/L Lipase 363 H (23-300) U/L 05/07/18 Range/Units 21:26 WBC (3.8-10.6) k/uL D-Dimer 0.63 H (<0.60) mg/L FEU Creatinine (0.52-1.04) mg/dL Glucose (74-99) mg/dL Total Creatine Kinase (30-135) U/L Amylase (30-110) U/L Lipase (23-300) U/L Assessment and Plan Assessment: 48-year-old female with history of pleurisy, admitted as observation with anticipated length of stay of less than 48 hours due to chest pain with atypical features to rule out acute coronary syndrome. Plan: Chest pain with atypical features rule out acute coronary syndrome Pain control Full dose of aspirin Check lipid profile Nitro when necessary Cardiology consult CT angios the chest negative for acute PE Nausea and vomiting Symptomatic control IV fluid hydration Diet as tolerated DVT prophylaxis heparin subcu 3 times a day Slight elevation in amylase and lipase unknown significance at this point Surrogate decision-maker: Patient's sher Yanes CODE STATUS: Full code Discussed with: Patient, ER, RN Anticipated discharge place: Home A total of 50 minutes was spent on the care of this complex patient more than 50 % of the time was spent in counseling and care coordination.
[2018-05-08] MEDS: ONDANSETRON ODT 4 MG TAB PO PRN ×2 (01:53→15:18)
[2018-05-08] MEDS: MORPHINE SULFATE 4 MG/ML SYRINGE IVP PRN ×4 (01:54→15:18)
[2018-05-08 03:54] LABS: Basophils # (A) 0.1 k/uL (0-0.2); Basophils % (A) 1 %; Eosinophils # (A) 0.2 k/uL (0-0.7); Eosinophils % (A) 2 %; HCT 37.4 % (34.0-46.0); HGB 12.7 gm/dL (11.4-16.0); Lymphocytes # (A) 2.6 k/uL (1.0-4.8); Lymphocytes % (A) 35 %; MCH 31.7 pg (25.0-35.0); MCHC 34.1 g/dL (31.0-37.0); MCV 93.1 fL (80.0-100.0); Mean Platelet Volume 6.9; Monocytes # (A) 0.3 k/uL (0-1.0); Monocytes % (A) 4 %; Neutrophils # (A) 4.3 k/uL (1.3-7.7); Neutrophils % (A) 57 %; Platelet Count 240 k/uL (150-450); RBC 4.01 m/uL (3.80-5.40); RDW 12.5 % (11.5-15.5); WBC 7.5 k/uL (3.8-10.6)
[2018-05-08 04:06] LABS: Albumin 3.8 g/dL (3.5-5.0); Calcium 8.7 mg/dL (8.4-10.2); Potassium 4.4 mmol/L (3.5-5.1); Total Bilirubin 0.4 mg/dL (0.2-1.3)
[2018-05-08 04:17] LABS: Creatine Kinase 187 U/L (30-135)
[2018-05-08 04:30] LABS: Creatine Kinase MB 1.1 ng/mL (0.0-2.4); Troponin I <0.012 ng/mL (0.000-0.034)
[2018-05-08] MEDS: HEPARIN SODIUM,PORCINE 5,000 UNIT/ML 1 ML VIAL SQ SCH ×2 (08:19→15:18)
[2018-05-08] MEDS: SODIUM CHLORIDE 0.9% 1,000 ML IV SCH (08:20)
[2018-05-08 08:28] VITALS: RESP 16
--- NOTE | 2018-05-08 08:41 | P.CRDCN ---
<Mariangel Aguilar E - Last Filed: 05/08/18 08:03> History of Present Illness Consult date: 05/08/18 Requesting physician: Tootie Gaines Consult reason: chest pain Chief complaint: Chest Pain History of present illness: This is a 48-year-old female with no prior documented history of hypertension, no hyperlipidemia, nondiabetic, she does smoke a pack of cigarettes a 3 day duration. She does have history of pleurisy. Patient also has history of cervical and ovarian cancer for which she had a hysterectomy and early 30s. He presents to the hospital on this occasion with symptoms of chest pain which started originally on Tuesday, she states that on Tuesday she had symptoms of sharp chest pain that went across her chest, into her left shoulder and down her left arm. She described it as a sharp ripping sensation. Tuesday she again developed developed symptoms which gradually subsided, on Tuesday she states that the symptoms persisted and she continues to have the pain this morning. Pain worsens with intensity with deep breathing or movement of the chest wall. At the time of my examination this morning she did have 2 episodes of vomiting, she states that she had some vomiting at home prior as well. She does have history of having her gallbladder removed in the past. Blood pressure 122/50 with a heart rate in the 70s, 100% on room air. Blood cell count on admission 11.3, 7.5 this morning, hemoglobin 12.7, platelet count 240, d-dimer 0.6. Sodium 138, potassium 4.4, BUN 14, creatinine 0.9. Troponins have been negative 2. Amylase 119, lipase 363. EKG on arrival here showed a normal sinus rhythm with no acute changes. Chest x-ray shows chronic changes, possible chronic bronchitis or asthma. No acute process. CTA of the chest was performed which did not reveal any evidence of a pulmonary embolism. Mild reticular nodular interstitial subpleural pulmonary infiltrates slightly more than last exam. Past Medical History Past Medical History: Asthma, Cancer, Chest Pain / Angina Additional Past Medical History / Comment(s): ovarian/CERVICAL CANCER(HAD SX ONLY) hx of anorexia as a teenager, PLEURISY, KIDNEY STONE(PASSES ON OWN), MIGRAINES History of Any Multi-Drug Resistant Organisms: None Reported Past Surgical History: Cholecystectomy, Hysterectomy, Orthopedic Surgery Additional Past Surgical History / Comment(s): KNEE ARTHROSCOPY Past Anesthesia/Blood Transfusion Reactions: No Reported Reaction Past Psychological History: Anxiety Smoking Status: Current some day smoker Past Alcohol Use History: None Reported Past Drug Use History: None Reported - Past Family History Mother Family Medical History: Diabetes Mellitus, Deep Vein Thrombosis (DVT) Father Family Medical History: Coronary Artery Disease (CAD), Hypertension Medications and Allergies Home Medications Medication Instructions Recorded Confirmed Type Cranberry Fruit Extract [Cranberry] 500 mg PO DAILY 08/21/17 05/08/18 History Cyanocobalamin (Vitamin B-12) 1,000 mcg PO DAILY 08/21/17 05/08/18 History [Vitamin B-12] Multivitamins, Thera [Multivitamin 1 tab PO DAILY 08/21/17 05/08/18 History (formulary)] Cholecalciferol [Vitamin D3] 1,000 unit PO DAILY 12/05/17 05/08/18 History L.acidoph,Paracasei, B.lactis 1 cap PO DAILY 12/05/17 05/08/18 History [Probiotic] Acetaminophen Tab [Tylenol Tab] 600 mg PO DIRECTED PRN 05/07/18 05/08/18 History Allergies Allergy/AdvReac Type Severity Reaction Status Date / Time hydrocodone bitartrate AdvReac Confusion Verified 05/08/18 09:20 [From Vicodin] BLACK OLIVES Allergy Swelling Uncoded 05/07/18 21:06 Physical Exam Vitals: Vital Signs Temp Pulse Pulse Resp BP BP Pulse Ox 05/08/18 04:00 97.9 F 74 14 122/56 100 05/08/18 01:02 59 L 18 107/72 96 05/08/18 00:40 97.9 F 70 18 101/56 98 05/07/18 23:41 60 18 109/73 97 05/07/18 22:57 64 18 109/75 96 05/07/18 22:15 68 18 98/72 96 05/07/18 21:28 18 05/07/18 21:02 98.2 F 79 18 101/60 98 Intake and Output 05/07/18 05/08/18 05/08/18 22:59 06:59 14:59 Intake Total 480 Balance 480 Intake: Oral 480 Other: Voiding Method Toilet # Voids 2 Weight 58.967 kg 67.4 kg PHYSICAL EXAMINATION: GENERAL: 48-year-old female in no acute distress at the time of my examination HEENT: Head is atraumatic, normocephalic. Pupils equal, round. Sclera anicteric. Conjunctiva are clear. Mucous membranes of the mouth are moist. Neck is supple. There is no elevated jugular venous pressure. No carotid bruit is heard. HEART EXAMINATION: Heart S1, S2 normal. No murmur or gallop heard. CHEST EXAMINATION: Lungs are clear to auscultation and precussion. Positive chest wall tenderness is noted on palpation or with deep breathing. ABDOMEN: Soft, nontender. Bowel sounds are heard. No organomegaly noted. EXTREMITIES: 2+ peripheral pulses with no evidence of peripheral edema and no calf tenderness noted. NEUROLOGIC patient is awake, alert and orientedX3. . Results 05/08/18 03:28 05/08/18 03: Cardiac Enzymes 05/07/18 05/07/18 05/08/18 Range/Units 21:26 21: 03:28 AST 32 (14-36) U/L CK-MB (CK-2) 1.3 1.1 (0.0-2.4) ng/mL Troponin I <0.012 <0.012 (0.000-0.034) ng/mL 05/08/18 Range/Units 03:28 AST 38 H (14-36) U/L CK-MB (CK-2) (0.0-2.4) ng/mL Troponin I (0.000-0.034) ng/mL Coagulation 05/07/18 Range/Units 21: PT 10.4 (9.0-12.0) sec APTT 23.7 (22.0-30.0) sec CBC 05/07/18 05/08/18 Range/Units 21: 03:28 WBC 11.3 H 7.5 (3.8-10.6) k/uL RBC 4.40 4.01 (3.80-5.40) m/uL Hgb 13.7 12.7 (11.4-16.0) gm/dL Hct 40.5 37.4 (34.0-46.0) % Plt Count 265 240 (150-450) k/uL Comprehensive Metabolic Panel 05/07/18 05/08/18 Range/Units : 03:28 Sodium 139 138 (137-145) mmol/L Potassium 4.3 4.4 (3.5-5.1) mmol/L Chloride 106 106 (98-107) mmol/L Carbon Dioxide 23 25 (22-30) mmol/L BUN 14 14 (7-17) mg/dL Creatinine 1.06 H 0.94 (0.52-1.04) mg/dL Glucose 133 H 114 H (74-99) mg/dL Calcium 9.3 8.7 (8.4-10.2) mg/dL AST 32 38 H (14-36) U/L ALT 18 20 (9-52) U/L Alkaline Phosphatase 73 65 (38-126) U/L Total Protein 7.5 7.0 (6.3-8.2) g/dL Albumin 4.1 3.8 (3.5-5.0) g/dL Current Medications Generic Name Dose Route Start Last Admin Trade Name Freq PRN Reason Stop Dose Admin Aspirin 325 mg 05/09/18 09:00 Aspirin PO DAILY [facility] Heparin Sodium (Porcine) 5,000 unit 05/08/18 08:00 Heparin SQ Q8HR [facility] Sodium Chloride 1,000 mls @ 100 mls/hr 05/07/18 22:15 05/07/18 22:15 Saline 0.9% IV 100 mls/hr .Q10H [facility] Administration Morphine Sulfate 4 mg 05/08/18 01:37 05/08/18 06:19 Morphine Sulfate (Inj) IVP 4 mg Q4HR PRN Administration Pain Nitroglycerin 0.4 mg 05/08/18 00:11 Nitrostat SUBLINGUAL Q5M PRN Chest Pain Ondansetron HCl 4 mg 05/08/18 01:38 05/08/18 01:53 Zofran Odt PO 4 mg Q8HR PRN Administration Nausea And Vomiting Intake and Output 05/07/18 05/08/18 05/08/18 22:59 06:59 14:59 Intake Total 480 Balance 480 Intake: Oral 480 Other: Voiding Method Toilet # Voids 2 Weight 58.967 kg 67.4 kg 05/08/18 03:28 05/08/18 03:28 EKG Interpretations (text) EKG shows a normal sinus rhythm with no acute changes. Assessment and Plan Plan: Assessment and plan #1 chest pain, atypical for acute coronary syndrome, troponins negative 2. EKG shows normal sinus rhythm with no changes acutely noted. D-dimer 0.6, CTA of the chest negative for pulmonary embolism. #2 nicotine dependence #3 history of pleurisy #4 abnormal amylase and lipase, upon review of prior records, she's been noted to have abnormality in her amylase and lipase. #5 history of ovarian and cervical cancer Plan An echocardiogram with Doppler study was performed on April 13 which revealed a normal left ventricular systolic function, mild mitral regurg. We will not repeat an echo this admission. We will repeat an EKG this morning. Patient has had multiple admissions for symptoms of atypical chest pain, she has never undergone a stress test. Recommend dobutamine echocardiographic study be performed today. We will obtain a fasting lipid profile. Further recommendations to follow. DNP note has been reviewed, I agree with a documented findings and plan of care. Patient was seen and examined. <Olaf Harrison - Last Filed: 05/08/18 09:28> History of Present Illness History of present illness: Urine examined. Atypical chest discomfort in the upper left pectoral area going to the shoulder left arm upper neck and upper back.. Proceed with dobutamine stress echo today. 2 cardiac enzymes are normal. No ECG evidence for ischemia at baseline Physical Exam Vitals: Vital Signs Temp Pulse Pulse Resp BP BP Pulse Ox 05/08/18 08:00 97.1 F L 55 L 16 102/66 94 L 05/08/18 04:00 97.9 F 74 14 122/56 100 05/08/18 01:02 59 L 18 107/72 96 05/08/18 00:40 97.9 F 70 18 101/56 98 05/07/18 23:41 60 18 109/73 97 05/07/18 22:57 64 18 109/75 96 05/07/18 22:15 68 18 98/72 96 05/07/18 21:28 18 05/07/18 21:02 98.2 F 79 18 101/60 98 Intake and Output 05/07/18 05/08/18 05/08/18 22:59 06:59 14:59 Intake Total 480 Balance 480 Intake: Oral 480 Other: Voiding Method Toilet # Voids 2 Weight 58.967 kg 67.4 kg Results 05/08/18 03:28 05/08/18 03:28 Cardiac Enzymes 05/07/18 05/07/18 05/08/18 Range/Units 21:26 21: 03:28 AST 32 (14-36) U/L CK-MB (CK-2) 1.3 1.1 (0.0-2.4) ng/mL Troponin I <0.012 <0.012 (0.000-0.034) ng/mL 05/08/18 Range/Units 03:28 AST 38 H (14-36) U/L CK-MB (CK-2) (0.0-2.4) ng/mL Troponin I (0.000-0.034) ng/mL Coagulation 05/07/18 Range/Units 21:26 PT 10.4 (9.0-12.0) sec APTT 23.7 (22.0-30.0) sec Lipids 05/08/18 Range/Units 08:21 Triglycerides 130 (<150) mg/dL Cholesterol 249 H (<200) mg/dL HDL Cholesterol 45 (40-60) mg/dL CBC 05/07/18 05/08/18 Range/Units 21:26 03:28 WBC 11.3 H 7.5 (3.8-10.6) k/uL RBC 4.40 4.01 (3.80-5.40) m/uL Hgb 13.7 12.7 (11.4-16.0) gm/dL Hct 40.5 37.4 (34.0-46.0) % Plt Count 265 240 (150-450) k/uL Comprehensive Metabolic Panel 05/07/18 05/08/18 Range/Units 21:26 03:28 Sodium 139 138 (137-145) mmol/L Potassium 4.3 4.4 (3.5-5.1) mmol/L Chloride 106 106 (98-107) mmol/L Carbon Dioxide 23 25 (22-30) mmol/L BUN 14 14 (7-17) mg/dL Creatinine 1.06 H 0.94 (0.52-1.04) mg/dL Glucose 133 H 114 H (74-99) mg/dL Calcium 9.3 8.7 (8.4-10.2) mg/dL AST 32 38 H (14-36) U/L ALT 18 20 (9-52) U/L Alkaline Phosphatase 73 65 (38-126) U/L Total Protein 7.5 7.0 (6.3-8.2) g/dL Albumin 4.1 3.8 (3.5-5.0) g/dL Current Medications Generic Name Dose Route Start Last Admin Trade Name Freq PRN Reason Stop Dose Admin Aspirin 81 mg 05/09/18 09:00 Aspirin PO DAILY [facility] Heparin Sodium (Porcine) 5,000 unit 05/08/18 08:00 05/08/18 08:19 Heparin SQ 5,000 unit Q8HR [facility] Administration Sodium Chloride 1,000 mls @ 100 mls/hr 05/07/18 22:15 05/08/18 08:20 Saline 0.9% IV 100 mls/hr .Q10H [facility] Administration Morphine Sulfate 4 mg 05/08/18 01:37 05/08/18 06:19 Morphine Sulfate (Inj) IVP 4 mg Q4HR PRN Administration Pain Nitroglycerin 0.4 mg 05/08/18 00:11 Nitrostat SUBLINGUAL Q5M PRN Chest Pain Ondansetron HCl 4 mg 05/08/18 01:38 05/08/18 01:53 Zofran Odt PO 4 mg Q8HR PRN Administration Nausea And Vomiting Intake and Output 05/07/18 05/08/18 05/08/18 22:59 06:59 14:59 Intake Total 480 Balance 480 Intake: Oral 480 Other: Voiding Method Toilet # Voids 2 Weight 58.967 kg 67.4 kg 05/08/18 03:28 05/08/18 03:28
[2018-05-08 09:06] LABS: Cholesterol 249 mg/dL (<200); HDL Cholesterol 45 mg/dL (40-60); LDL Cholesterol,Calculated 178 mg/dL (0-99); Triglycerides 130 mg/dL (<150)
[2018-05-08 09:18] LABS: Creatine Kinase 163 U/L (30-135)
[2018-05-08 09:28] LABS: Creatine Kinase MB 1.1 ng/mL (0.0-2.4); Troponin I <0.012 ng/mL (0.000-0.034)
[2018-05-08] MEDS ORDERED: DOBUTamine DRIP for NUC MED 500 MG in DEXTROSE/WATER 1 250ML.BAG IV ONE (09:40)
[2018-05-08] MEDS ORDERED: ATROPINE SULFATE 0.1 MG/ML 10ML SYRINGE ONE (12:30)
[2018-05-08] MEDS ORDERED: METOPROLOL TARTRATE 5 MG/5 ML VIAL IVP ONE (12:30)
[2018-05-08] MEDS ORDERED: ONDANSETRON 4 MG/2 ML VIAL ONE (12:30)
--- NOTE | 2018-05-08 12:59 | P.STRESS ---
- Stress Test Note Stress Test Results/Findings: Exam Performed: dobutamine stress echo Exam Date: 05/08/18 Reason for Exam: CHEST PAIN Height: 5 ft 1 in Weight: 67.4 kg Protocol: DSE Stage: 6 Duration of Exercise: 17:45 Resting Heart Rate: 62 Resting Blood Pressure: 111/65 Maximum Achieved Heart Rate: 148 Maximum Achieved Blood Pressure: 185/80 85% PMHR: 147 100% PMHR: 173 METS: NA Technologist Comment: Stress Test Results/Findings: This is a 48-year-old female with history of smoking and family history of ischemic heart disease being evaluated for chest pains. Stress data : Baseline EKG showed sinus rhythm with normal CA interval and QRS duration with nonspecific ST-T abnormalities. Blood pressure at rest is 111/65 with pulse rate of 62. A standard dose of dobutamine was initiated at 10 mics and was titrated to 40 mics. A peak heart rate of 151 was obtained. EKGs taken during and after dobutamine infusion did not reveal any significant changes to suggest ischemia. Patient was also given half a milligram of atropine. Echo data: Baseline echo images showed normal wall motion and thickening. Echo images taken at low dose of high-dose dobutamine showed progressive augmentation of wall motion and thickening. Final impression: #1. Negative dobutamine stress test #2. Negative dobutamine stress echo..
[2018-05-08 15:48] VITALS: BP 92/61; PULSE 74; TEMP 97.4
--- NOTE | 2018-05-08 16:59 | P.PN ---
Progress Note - Text Progress Note Date: 05/08/18 The patient is a 48-year-old female in observation after presenting with atypical chest pain with minimal cardiac risk factors, her EKG showed sinus mechanism with no suggestion of acute ischemia, subsequent an initial troponins were all negative. Cardiology was consulted and she had a dobutamine stress test and stress echo that was negative. Patient was 20 to have a slightly elevated d-dimer 0.63 subsequent CTA was negative for PE. The patient mentioned that her discomfort was similar to her usual pleuritic chest discomfort. She was subsequently discharged home in stable condition told to follow-up with the PCP, new prescription for colchicine was sent to her pharmacy.
[2018-05-09] MEDS ORDERED: ASPIRIN 81 MG PO SCH (09:00)
[2018-05-09] MEDS ORDERED: ASPIRIN 325 MG TAB PO SCH (09:00)
--- NOTE | 2018-05-10 12:13 | ECHOS ---
Stress Test Results/Findings: Exam Performed: dobutamine stress echo Exam Date: 05/08/18 Reason for Exam: CHEST PAIN Height: 5 ft 1 in Weight: 67.4 kg Protocol: DSE Stage: 6 Duration of Exercise: 17:45 Resting Heart Rate: 62 Resting Blood Pressure: 111/65 Maximum Achieved Heart Rate: 148 Maximum Achieved Blood Pressure: 185/80 85% PMHR: 147 100% PMHR: 173 METS: NA Technologist Comment: Stress Test Results/Findings: This is a 48-year-old female with history of smoking and family history of ischemic heart disease being evaluated for chest pains. Stress data : Baseline EKG showed sinus rhythm with normal ID interval and QRS duration with nonspecific ST-T abnormalities. Blood pressure at rest is 111/65 with pulse rate of 62. A standard dose of dobutamine was initiated at 10 mics and was titrated to 40 mics. A peak heart rate of 151 was obtained. EKGs taken during and after dobutamine infusion did not reveal any significant changes to suggest ischemia. Patient was also given half a milligram of atropine. Echo data: Baseline echo images showed normal wall motion and thickening. Echo images taken at low dose of high-dose dobutamine showed progressive augmentation of wall motion and thickening. Final impression: #1. Negative dobutamine stress test #2. Negative dobutamine stress echo.. MTDD
== END 2018-05-08 18:22 | disposition home or self-care (01) ==
LOC: EC 21:00 → 6SEL 05-08 00:13
PROVIDERS: ADMIT Internal Medicine; ATTEND Internal Medicine
DX: R07.89 Other chest pain (principal); R91.8 Other nonspecific abnormal finding of lung field; R74.8 Abnormal levels of other serum enzymes; R79.89 Other specified abnormal findings of blood chemistry; G43.909 Migraine, unspecified, not intractable, without status migrainosus; J45.909 Unspecified asthma, uncomplicated; F41.9 Anxiety disorder, unspecified; F17.210 Nicotine dependence, cigarettes, uncomplicated; Z88.5 Allergy status to narcotic agent; Z91.018 Allergy to other foods; Z87.442 Personal history of urinary calculi; Z87.09 Personal history of other diseases of the respiratory system; Z90.710 Acquired absence of both cervix and uterus; Z85.43 Personal history of malignant neoplasm of ovary; Z85.41 Personal history of malignant neoplasm of cervix uteri; Z90.49 Acquired absence of other specified parts of digestive tract; Z82.49 Family history of ischemic heart disease and other diseases of the circulatory system; Z83.3 Family history of diabetes mellitus; Z83.2 Family history of diseases of the blood and blood-forming organs and certain disorders involving the immune mechanism
CPT/HCPCS: 96376 ×2; 96372; 96361 ×2; 96374; 96375; 99285; 36415; 93005; 93351; 85379; 80061; 80053 ×2; 82150; 82550 ×2; 82553 ×2; 83690; 83735; 84484 ×2; 85025 ×2; 85610; 85730; 71046; 71275; G0378; J1250; J2270 ×2; J1644; J2405; J0461; Q9967

== ENCOUNTER → 2019-05-17 | Outpatient (CLI) | payer OTHER | END | disposition home or self-care (01) | LOC: RADCTMAIN 09:05 | PROVIDERS: ATTEND Internal Medicine | DX: Z53.9 Procedure and treatment not carried out, unspecified reason (principal) ==

== ENCOUNTER → 2019-05-22 | Outpatient (CLI) | payer OTHER ==
--- NOTE | 2019-05-22 08:53 | CT ---
EXAMINATION TYPE: CT abdomen pelvis w con DATE OF EXAM: 05/22/2019 COMPARISON: 04/29/2015 HISTORY: 49-year-old female change in bowel habits TECHNIQUE: Contiguous axial scanning of the abdomen and pelvis following administration of 100 ml Iso kieran 300 IV contrast. Delayed images through the kidneys and coronal/sagittal reconstructions perform ed. CT DLP: 495.6 mGycm Automated exposure control for dose reduction was used. FINDINGS: The heart is normal size without pericardial effusion. Dependent atelectasis posterior lung bases wit hout pleural effusion. Prominent motion on the upper abdomen on the initial postcontrast series without definite focal liver lesion. Portal venous system appears patent. No biliary ductal dilatation. Cholecystectomy clips. Adrenal glands, kidneys, spleen, pancreas appear within normal limits. No dilated small bowel, free fluid, or free air. No mesenteric or retroperitoneal lymphadenopathy. Moderate overall stool burden. Small caliber, normal appendix. No pericolonic inflammatory change. Bladder urine distended. Multiple pelvic phleboliths. Uterus surgically absent. Suspect visualization of a small, partially calcified right ovary, unchanged from 04/29/2015. No abnormal fluid collection in the pelvis or pelvic lymphadenopathy. Bones: No osseous destructive process. IMPRESSION: 1. PROMINENT BREATHING MOTION ALONG THE UPPER ABDOMEN WITHOUT ACUTE INFLAMMATORY PROCESS IDENTIFIED I N THE ABDOMEN OR PELVIS. 2. MODERATE STOOL BURDEN.
== END | disposition home or self-care (01) ==
LOC: RADCTMAIN 05:45
PROVIDERS: ATTEND Nurse Practitioner Adult Health
DX: R19.4 Change in bowel habit (principal)
CPT/HCPCS: 74177; Q9967 ×2

== ENCOUNTER 2019-06-08 18:49 | Inpatient (IN) | payer OTHER ==
[2019-06-08] MEDS ORDERED: SODIUM CHLORIDE 0.9% 1,000 ML IV ONE (19:18)
[2019-06-08] MEDS ORDERED: MORPHINE SULFATE 4 MG/ML SYRINGE IV STA ×2 (19:18→21:38)
[2019-06-08] MEDS ORDERED: ONDANSETRON 4 MG/2 ML VIAL IVP STA (19:18)
--- NOTE | 2019-06-08 19:33 | ED ---
General Adult HPI - General Chief complaint: Back Pain/Injury Stated complaint: back pain Time Seen by Provider: 06/08/19 18:54 Source: patient, RN notes reviewed, old records reviewed Mode of arrival: ambulatory Limitations: no limitations - History of Present Illness Initial comments: 49-year-old female patient with past history significant for renal calculi, status post hysterectomy presents ED chief complaint of right flank pain. Patient points this feels identical to kidney stone she is experiencing the past. Patient reports that she has pain in her right flank region. Also reports some fevers and chills. Reports some mild dysuria. Denies any other complaints. Systemic: Pt denies fatigue, fever/chills, rash. Pt denies weakness, night swe ats, weight loss. Neuro: Pt denies headache, visual disturbances, syncope or pre-syncope. HEENT: Pt denies ocular discharge or irritation, otalgia, rhinorrhea, pharyngitis or notable lymphadenopathy. Cardiopulmonary: Pt denies chest pain, SOB, heart palpitations, dyspnea on exertion. Abdominal/GI: Pt denies abdominal pain, n/v/d. : Pt denies dysuria, burning w/ urination, frequency/urgency. Denies new onset urinary or bowel incontinence. MSK: Pt denies myalgia, loss of strength or function in extremities. Neuro: Pt denies new onset weakness, paresthesias. - Related Data Home Medications Medication Instructions Recorded Confirmed Cranberry Fruit Extract [Cranberry] 500 mg PO DAILY 08/21/17 05/08/18 Cyanocobalamin (Vitamin B-12) 1,000 mcg PO DAILY 08/21/17 05/08/18 [Vitamin B-12] Multivitamins, Thera [Multivitamin 1 tab PO DAILY 08/21/17 05/08/18 (formulary)] Cholecalciferol [Vitamin D3 (25 1,000 unit PO DAILY 12/05/17 05/08/18 Mcg = 1000 Iu)] L.acidoph,Paracasei, B.lactis 1 cap PO DAILY 12/05/17 05/08/18 [Probiotic] Acetaminophen Tab [Tylenol] 600 mg PO DIRECTED PRN 05/07/18 05/08/18 Previous Rx's Medication Instructions Recorded Colchicine [Colcrys] 0.6 mg PO BID #60 tablet 05/08/18 Allergies Allergy/AdvReac Type Severity Reaction Status Date / Time hydrocodone bitartrate AdvReac Confusion Verified 06/08/19 18:54 [From Vicodin] BLACK OLIVES Allergy Swelling Uncoded 06/08/19 18:54 Review of Systems ROS Statement: Those systems with pertinent positive or pertinent negative responses have been documented in the HPI. ROS Other: All systems not noted in ROS Statement are negative. Past Medical History Past Medical History: Asthma, Cancer, Chest Pain / Angina Additional Past Medical History / Comment(s): ovarian/CERVICAL CANCER(HAD SX ONLY) hx of anorexia as a teenager, PLEURISY, KIDNEY STONE(PASSES ON OWN), MIGRAINES History of Any Multi-Drug Resistant Organisms: None Reported Past Surgical History: Cholecystectomy, Hysterectomy, Orthopedic Surgery Additional Past Surgical History / Comment(s): KNEE ARTHROSCOPY Past Anesthesia/Blood Transfusion Reactions: No Reported Reaction Past Psychological History: Anxiety Smoking Status: Current some day smoker Past Alcohol Use History: None Reported Past Drug Use History: None Reported - Past Family History Mother Family Medical History: Diabetes Mellitus, Deep Vein Thrombosis (DVT) Father Family Medical History: Coronary Artery Disease (CAD), Hypertension General Exam - General Exam Comments Initial Comments: Constitutional: NAD, AOX3, Pt has pleasant affect. HEENT: NC/AT, trachea midline, neck supple, no lymphadenopathy. Posterior pharynx non erythematous, without exudates. External ears appear normal, without discharge. Mucous membranes moist. Eyes PERRLA, EOM intact. There is no scleral icterus. No pallor noted. Cardiopulmonary: RRR, no murmurs, rubs or gallops, no JVD noted. Lungs CTAB in anterior and posterior yeh. No peripheral edema. Abdominal exam: Abdomen soft and non-distended. Abdomen non-tender to palpation in all 4 quadrants. He did tenderness positive. Left CVA tenderness negative. Bowel sounds active in LLQ. No hepatosplenomegaly. No ecchymosis Neuro: CN II-XII grossly intact. No nuchal rigidity. No raccon eyes, no monae sign, no hemotympanum. No cervical spinal tenderness. MSK: No posterior calf tenderness bilaterally, homans sign negative bilaterally. Posterior tibialis and radial pulse +2 bilaterally. Sensation intact in upper and lower extremities. Full active ROM in upper and lower extremities, 5/5 stregnth. Limitations: no limitations Course Vital Signs 06/08/19 18:51 Temperature 98.0 F Pulse Rate 64 Respiratory 18 Rate Blood Pressure 114/65 O2 Sat by Pulse 98 Oximetry Medical Decision Making - Medical Decision Making 49-year-old female patient with past history significant for renal calculi, status post hysterectomy presents ED chief complaint of right flank pain. Patient points this feels identical to kidney stone she is experiencing the past. Patient reports that she has pain in her right flank region. Also reports some fevers and chills. Reports some mild dysuria. Denies any other complaints. Patient vital signs stable, afebrile. Physical exam displayed right CVA tenderness. Laboratory investigations revealed mildly elevated white blood cell count. Cranial around baseline. UA consistent with infection. Nitrite positive. Greater than 182 red blood cells, 137 white blood cells. Large leukocyte esterase. CT abdomen pelvis displayed mild to moderate right obstructive uropathy, of unclear etiology at this time. Case was discussed with attending physician Dr. Monge and urologist Dr. Velásquez. Patient will be admitted for analgesia and IV antibiotics. - Lab Data Result diagrams: 06/08/19 19:45 06/08/19 19:45 Lab Results 06/08/19 06/08/19 06/08/19 Range/Units 19:45 19:45 19:45 WBC 11.1 H (3.8-10.6) k/uL RBC 4.71 (3.80-5.40) m/uL Hgb 15.0 (11.4-16.0) gm/dL Hct 44.1 (34.0-46.0) % MCV 93.7 (80.0-100.0) fL MCH 32.0 (25.0-35.0) pg MCHC 34.1 (31.0-37.0) g/dL RDW 13.5 (11.5-15.5) % Plt Count 291 (150-450) k/uL Neutrophils % 61 % Lymphocytes % 28 % Monocytes % 5 % Eosinophils % 4 % Basophils % 1 % Neutrophils # 6.8 (1.3-7.7) k/uL Lymphocytes # 3.1 (1.0-4.8) k/uL Monocytes # 0.6 (0-1.0) k/uL Eosinophils # 0.4 (0-0.7) k/uL Basophils # 0.2 (0-0.2) k/uL Sodium 138 (137-145) mmol/L Potassium 4.5 (3.5-5.1) mmol/L Chloride 106 (98-107) mmol/L Carbon Dioxide 26 (22-30) mmol/L Anion Gap 6 mmol/L BUN 14 (7-17) mg/dL Creatinine 1.18 H (0.52-1.04) mg/dL Est GFR (CKD-EPI)AfAm 63 (>60 ml/min/1.73 sqM) Est GFR (CKD-EPI)NonAf 55 (>60 ml/min/1.73 sqM) Glucose 101 H (74-99) mg/dL Plasma Lactic Acid Mj 1.0 (0.7-2.0) mmol/L Calcium 10.0 (8.4-10.2) mg/dL Total Bilirubin 0.4 (0.2-1.3) mg/dL AST 49 H (14-36) U/L ALT 17 (9-52) U/L Alkaline Phosphatase 68 (38-126) U/L Total Protein 7.9 (6.3-8.2) g/dL Albumin 4.5 (3.5-5.0) g/dL Urine Color Urine Appearance (Clear) Urine pH (5.0-8.0) Ur Specific [place] (1.001-1.035) Urine Protein (Negative) Urine Glucose (UA) (Negative) Urine Ketones (Negative) Urine Blood (Negative) Urine Nitrite (Negative) Urine Bilirubin (Negative) Urine Urobilinogen (<2.0) mg/dL Ur Leukocyte Esterase (Negative) Urine RBC (0-5) /hpf Urine WBC (0-5) /hpf Urine WBC Clumps (None) /hpf Ur Squamous Epith Cells (0-4) /hpf Urine Bacteria (None) /hpf Urine Mucus (None) /hpf 06/08/19 Range/Units 19:45 WBC (3.8-10.6) k/uL RBC (3.80-5.40) m/uL Hgb (11.4-16.0) gm/dL Hct (34.0-46.0) % MCV (80.0-100.0) fL MCH (25.0-35.0) pg MCHC (31.0-37.0) g/dL RDW (11.5-15.5) % Plt Count (150-450) k/uL Neutrophils % % Lymphocytes % % Monocytes % % Eosinophils % % Basophils % % Neutrophils # (1.3-7.7) k/uL Lymphocytes # (1.0-4.8) k/uL Monocytes # (0-1.0) k/uL Eosinophils # (0-0.7) k/uL Basophils # (0-0.2) k/uL Sodium (137-145) mmol/L Potassium (3.5-5.1) mmol/L Chloride (98-107) mmol/L Carbon Dioxide (22-30) mmol/L Anion Gap mmol/L BUN (7-17) mg/dL Creatinine (0.52-1.04) mg/dL Est GFR (CKD-EPI)AfAm (>60 ml/min/1.73 sqM) Est GFR (CKD-EPI)NonAf (>60 ml/min/1.73 sqM) Glucose (74-99) mg/dL Plasma Lactic Acid Mj (0.7-2.0) mmol/L Calcium (8.4-10.2) mg/dL Total Bilirubin (0.2-1.3) mg/dL AST (14-36) U/L ALT (9-52) U/L Alkaline Phosphatase (38-126) U/L Total Protein (6.3-8.2) g/dL Albumin (3.5-5.0) g/dL Urine Color Yellow Urine Appearance Cloudy H (Clear) Urine pH 6.5 (5.0-8.0) Ur Specific [place] 1.019 (1.001-1.035) Urine Protein 2+ H (Negative) Urine Glucose (UA) Negative (Negative) Urine Ketones Negative (Negative) Urine Blood Moderate H (Negative) Urine Nitrite Positive H (Negative) Urine Bilirubin Negative (Negative) Urine Urobilinogen 3.0 (<2.0) mg/dL Ur Leukocyte Esterase Large H (Negative) Urine RBC >182 H (0-5) /hpf Urine WBC 137 H (0-5) /hpf Urine WBC Clumps Moderate H (None) /hpf Ur Squamous Epith Cells 7 H (0-4) /hpf Urine Bacteria Few H (None) /hpf Urine Mucus Rare H (None) /hpf Disposition Clinical Impression: Flank pain, Renal calculi, UTI (urinary tract infection) Disposition: ADMITTED IP TO THIS HOSP Condition: Serious Is patient prescribed a controlled substance at d/c from ED?: No
[2019-06-08 20:04] LABS: Basophils # (A) 0.2 k/uL (0-0.2); Basophils % (A) 1 %; Eosinophils # (A) 0.4 k/uL (0-0.7); Eosinophils % (A) 4 %; HCT 44.1 % (34.0-46.0); Lymphocytes # (A) 3.1 k/uL (1.0-4.8); Lymphocytes % (A) 28 %; MCHC 34.1 g/dL (31.0-37.0); MCV 93.7 fL (80.0-100.0); Mean Platelet Volume 6.3; Monocytes # (A) 0.6 k/uL (0-1.0); Monocytes % (A) 5 %; Neutrophils # (A) 6.8 k/uL (1.3-7.7); Neutrophils % (A) 61 %; Platelet Count 291 k/uL (150-450); RBC 4.71 m/uL (3.80-5.40); RDW 13.5 % (11.5-15.5); WBC 11.1 k/uL (3.8-10.6)
[2019-06-08 20:12] LABS: Appearance,Urine Cloudy (Clear); Bacteria,Urine Few /hpf; Bilirubin,Urine Negative (Negative); Blood,Urine Moderate (Negative); Color,Urine Yellow; Glucose,Urine (UA) Negative (Negative); Ketones,Urine Negative (Negative); Leukocyte Esterase,Urine Large (Negative); Mucus,Urine Rare /hpf; Nitrite,Urine Positive (Negative); PH, Urine 6.5 (5.0-8.0); Protein,Urine 2+ (Negative); RBC,Urine >182 /hpf (0-5); Specific Gravity,Urine 1.019 (1.001-1.035); Squamous Epithelial Cell,Urine 7 /hpf (0-4); WBC,Urine 137 /hpf (0-5)
[2019-06-08 20:14] LABS: Albumin 4.5 g/dL (3.5-5.0); Potassium 4.5 mmol/L (3.5-5.1); Total Bilirubin 0.4 mg/dL (0.2-1.3); Total Protein 7.9 g/dL (6.3-8.2)
--- NOTE | 2019-06-08 21:42 | CT ---
EXAMINATION TYPE: CT abdomen pelvis wo con DATE OF EXAM: 06/08/2019 COMPARISON: CT 05/22/2019 HISTORY: Right side flank pain. CT DLP: 475.1 mGycm Automated exposure control for dose reduction was used. TECHNIQUE: Helical acquisition of images was performed from the lung bases through the pelvis. FINDINGS: Within the limitations of noncontrast CT the following observations are made. LUNG BASES: No acute process. LIVER/GB: No significant abnormality is appreciated. PANCREAS: No significant abnormality is seen. SPLEEN: No significant abnormality is seen. ADRENALS: No significant abnormality is seen. KIDNEYS: There is mild right-sided hydronephrosis, not seen on the prior study. However, there dominant finding is moderate periureteral edematous reticular change extending from the renal pelvis caudally to the level of the sacral promontory. There are multifocal high attenuation foci along the course of the right ureter, but these appear to have been present on prior CT 05/22/[address]. IV [address] urogram protocol may well be a beneficial complementary study in this particular case. FREE AIR: No free air is visualized RETROPERITONEAL ADENOPATHY: None visualized REPRODUCTIVE ORGANS: No significant abnormality is seen URINARY BLADDER: No significant abnormality is seen. PELVIC ADENOPATHY: None visualized. OSSEOUS STRUCTURES: No significant abnormality is seen. BOWEL: No significant abnormality is seen. IMPRESSION: [id number] RIGHT OBSTRUCTIVE UROPATHY, OF UNCLEAR ETIOLOGY AT THIS TIME.
[2019-06-08] MEDS ORDERED: ACETAMINOPHEN TAB 325 MG TAB PO PRN (22:10)
[2019-06-08] MEDS ORDERED: NALOXONE 0.4 MG/ML 1 ML VIAL IV PRN (22:10)
[2019-06-08] MEDS: SODIUM CHLORIDE 0.9% 1,000 ML IV SCH (23:24)
--- NOTE | 2019-06-08 23:45 | P.HPIM ---
History of Present Illness H&P Date: 06/08/19 Chief Complaint: Right flank pain 49-year-old female with history of kidney stone over 12 years ago Patient comes in to the hospital with 3 day history of right flank and lower back pain. Patient described the pain as stabbing in nature nonradiating 10 out of 10 in severity over the right flank area gets better with laying still. Associated with some nausea no vomiting. She describes subjective fevers and chills at home. Associated with urinary frequency dark color dysuria and urgency. She denies any vaginal discharge or bleeding. She denies any trauma to her back or any out of the ordinary physical strain. She recalls history of kidney stone in the past. And was concerned that she's having another stone this time. In the ED further workup revealed right obstructive uropathy with moderate hydronephrosis suspicious for passing a stone patient admitted for treatment of pyelonephritis and urology evaluation in the morning Otherwise patient denies any chest pain or trouble breathing denies any changes in her bowel habits denies any recent traveling denies any recent hospitalization or recent use of antibiotics. Review of Systems Pertinent positives as noted in HPI. All other systems were reviewed and are negative Past Medical History Past Medical History: Asthma, Cancer, Chest Pain / Angina Additional Past Medical History / Comment(s): ovarian/CERVICAL CANCER(HAD SX ONLY) hx of anorexia as a teenager, PLEURISY, KIDNEY STONE(PASSES ON OWN), MIGRAINES History of Any Multi-Drug Resistant Organisms: None Reported Past Surgical History: Cholecystectomy, Hysterectomy, Orthopedic Surgery Additional Past Surgical History / Comment(s): KNEE ARTHROSCOPY Past Anesthesia/Blood Transfusion Reactions: No Reported Reaction Past Psychological History: Anxiety Smoking Status: Current some day smoker Past Alcohol Use History: None Reported Past Drug Use History: None Reported - Past Family History Mother Family Medical History: Diabetes Mellitus, Deep Vein Thrombosis (DVT) Father Family Medical History: Coronary Artery Disease (CAD), Hypertension Medications and Allergies Home Medications Medication Instructions Recorded Confirmed Type Estrogen,Con/M-Progest Acet 1 tab PO DAILY 06/08/19 06/08/19 History [Prempro 0.3 mg-1.5 mg Tablet] buPROPion HCL [Wellbutrin XL] 300 mg PO DAILY 06/08/19 06/08/19 History Allergies Allergy/AdvReac Type Severity Reaction Status Date / Time hydrocodone bitartrate AdvReac Confusion Verified 06/08/19 23:30 [From Vicodin] BLACK OLIVES Allergy Swelling Uncoded 06/08/19 18:54 Physical Exam Vitals: Vital Signs Temp Pulse Resp BP Pulse Ox 06/08/19 23:18 98.0 F 60 18 107/76 94 L 06/08/19 18:51 98.0 F 64 18 114/65 98 Intake and Output 06/08/19 06/08/19 06/09/19 14:59 22:59 06:59 Other: Weight 63.049 kg Constitutional: No acute distress, conversant, pleasant Eyes: Anicteric sclerae, moist conjunctiva, no lid-lag Pupils equal round reactive to light ENMT: NC/AT Oropharynx clear, no erythema, exudates Neck: Supple, FROM, no masses, or JVD No carotid bruits No thyromegaly Lungs: Clear to auscultation Clear to percussion Normal respiratory effort, no accessory muscle use Cardiovascular: Heart regular in rate and rhythm, No murmurs, gallops, or rubs No peripheral edema Abdominal: Soft, tenderness to palpation of the right costovertebral angle no guarding, rebound or rigidity Abdomen moving with respiration Normoactive bowel sounds No hepatomegaly, No splenomegaly No palpable mass No abdominal wall hernia noted Skin: Normal temperature, tone, texture, turgor No induration No subcutaneous nodules No rash, lesions No ulcers Extremities: No digital cyanosis No clubbing Pedal pulses intact and symmetrical Radial pulses intact and symmetrical No calf tenderness Psychiatric: Alert and oriented to person, place and time Appropriate affect fair judgment Neuro Muscles Strength 5/5 in all 4 extremities Sensation to light touch grossly present throughout Cranial nerves II-XII grossly intact No focal sensory deficits Lymphatics: no palpable cervical or supraclavicular , or inguinal lymph nodes Results CBC & Chem 7: 06/08/19 19:45 06/08/19 19:45 Labs: Abnormal Lab Results - Last 24 Hours (Table) 06/08/19 06/08/19 06/08/19 Range/Units 19:45 19:45 19:45 WBC 11.1 H (3.8-10.6) k/uL Creatinine 1.18 H (0.52-1.04) mg/dL Glucose 101 H (74-99) mg/dL AST 49 H (14-36) U/L Urine Appearance Cloudy H (Clear) Urine Protein 2+ H (Negative) Urine Blood Moderate H (Negative) Urine Nitrite Positive H (Negative) Ur Leukocyte Esterase Large H (Negative) Urine RBC >182 H (0-5) /hpf Urine WBC 137 H (0-5) /hpf Urine WBC Clumps Moderate H (None) /hpf Ur Squamous Epith Cells 7 H (0-4) /hpf Urine Bacteria Few H (None) /hpf Urine Mucus Rare H (None) /hpf Assessment and Plan Assessment: 49-year-old female with history of kidney stones presented with right lower back pain of 3 days' duration found to have pyelonephritis with possible passage of stone, and some mild to moderate hydronephrosis and obstructive uropathy admitted as an inpatient with anticipated length of stay more than 2 midnight. Await further input from neurology in the morning Plan: Acute pyelonephritis Obstructive uropathy Hydronephrosis on the right side Consult to urology IV fluid hydration IV antibiotics with Rocephin Follow-up cultures Pain control with opiates Symptomatic control of nausea DVT prophylaxis heparin subcu 3 times a day Preformed a thorough record review from recent hospitalization history of kidney stone over 12 years ago Surrogate decision-maker: Patient CODE STATUS: Full code Discussed with: Patient, ER, RN Anticipated length of stay more than [address]: Home A total of 60 minutes was spent on the care of this complex patient more than 50% of the time was spent in counseling and care coordination.
[2019-06-09] MEDS: HEPARIN SODIUM,PORCINE 5,000 UNIT/ML 1 ML VIAL SQ SCH ×3 (01:11→16:34)
[2019-06-09] MEDS: HYDROmorphone 1 MG/ML 1 ML SYRINGE IVP PRN ×5 (03:40→19:36)
[2019-06-09] MEDS: SODIUM CHLORIDE 0.9% 1,000 ML IV SCH ×2 (07:43→16:39)
[2019-06-09] MEDS: buPROPion XL 300 MG TAB.ER.24H PO SCH (07:46)
[2019-06-09] MEDS: ONDANSETRON 4 MG/2 ML VIAL IVP PRN ×3 (07:46→16:39)
[2019-06-09 08:10] LABS: HCT 37.8 % (34.0-46.0); HGB 12.5 gm/dL (11.4-16.0); MCH 31.8 pg (25.0-35.0); MCHC 33.1 g/dL (31.0-37.0); MCV 96.1 fL (80.0-100.0); Mean Platelet Volume 6.2; Platelet Count 256 k/uL (150-450); RBC 3.94 m/uL (3.80-5.40); RDW 13.6 % (11.5-15.5); WBC 8.2 k/uL (3.8-10.6)
[2019-06-09 08:22] LABS: Calcium 8.6 mg/dL (8.4-10.2); Phosphorus 4.8 mg/dL (2.5-4.5); Potassium 5.3 mmol/L (3.5-5.1)
--- NOTE | 2019-06-09 13:06 | P.GSCN ---
History of Present Illness Consult date: 06/09/19 Reason for Consult: Right hydronephrosis Requesting physician: Tootie Gaines History of present illness: The patient is a 49-year-old white female who passed a right-sided kidney stone approximately 12 years ago. She now presents with a three-day history of right flank pain, associated with nausea and vomiting. Urinalysis is consistent with infection, and she is currently receiving IV antibiotics. A CT scan shows evidence of mild right hydronephrosis. I am consulted for this reason. Review of Systems - Constitutional Reports chills, Reports fever - Gastrointestinal Reports nausea, Reports vomiting - Genitourinary Genitourinary: Reports dysuria, Denies hematuria Past Medical History Past Medical History: Asthma, Cancer, Chest Pain / Angina Additional Past Medical History / Comment(s): OVARIAN CANCER(HAD SX ONLY) hx of anorexia as a teenager, PLEURISY, KIDNEY STONE (PASSED ON OWN), MIGRAINES History of Any Multi-Drug Resistant Organisms: None Reported Past Surgical History: Cholecystectomy, Hysterectomy, Orthopedic Surgery Additional Past Surgical History / Comment(s): RIGHT KNEE ARTHROSCOPY Past Anesthesia/Blood Transfusion Reactions: No Reported Reaction Past Psychological History: Anxiety Smoking Status: Current some day smoker Past Alcohol Use History: None Reported Additional Past Alcohol Use History / Comment(s): STARTTED SMOKING AT AGE 15 HAS SMOKED OFF AND ON-CURRENTLY A PACK WILL LAST 5 DAYS. SMOKING CESSATION BOOKLET GIVEN TO PT Past Drug Use History: None Reported - Past Family History Mother Family Medical History: Diabetes Mellitus, Deep Vein Thrombosis (DVT) Father Family Medical History: Coronary Artery Disease (CAD), Hypertension Medications and Allergies Home Medications Medication Instructions Recorded Confirmed Type Estrogen,Con/M-Progest Acet 1 tab PO DAILY 06/08/19 06/08/19 History [Prempro 0.3 mg-1.5 mg Tablet] buPROPion HCL [Wellbutrin XL] 300 mg PO DAILY 06/08/19 06/08/19 History Allergies Allergy/AdvReac Type Severity Reaction Status Date / Time hydrocodone bitartrate AdvReac Confusion Verified 06/08/19 23:30 [From Vicodin] BLACK OLIVES Allergy Swelling Uncoded 06/08/19 18:54 Surgical - Exam Vital Signs Temp Pulse Resp BP Pulse Ox 98.0 F 64 18 114/65 98 06/08/19 18:51 06/08/19 18:51 06/08/19 18:51 06/08/19 18:51 06/08/19 18:51 - General well developed, well nourished, no distress - Neck no masses, trachea midline - Respiratory normal respiratory effort - Abdomen Abdomen: soft, tender (Right CVA tenderness is present), no guarding, no rigid, no rebound, no distended - Psychiatric oriented to time, oriented to person, oriented to place, speech is normal, memory intact Results - Labs 06/09/19 07:39 06/09/19 07:39 Abnormal Lab Results - Last 24 Hours (Table) 06/08/19 06/08/19 06/08/19 Range/Units 19:45 19:45 19:45 WBC 11.1 H (3.8-10.6) k/uL Potassium (3.5-5.1) mmol/L Chloride (98-107) mmol/L Creatinine 1.18 H (0.52-1.04) mg/dL Glucose 101 H (74-99) mg/dL Phosphorus (2.5-4.5) mg/dL AST 49 H (14-36) U/L Urine Appearance Cloudy H (Clear) Urine Protein 2+ H (Negative) Urine Blood Moderate H (Negative) Urine Nitrite Positive H (Negative) Ur Leukocyte Esterase Large H (Negative) Urine RBC >182 H (0-5) /hpf Urine WBC 137 H (0-5) /hpf Urine WBC Clumps Moderate H (None) /hpf Ur Squamous Epith Cells 7 H (0-4) /hpf Urine Bacteria Few H (None) /hpf Urine Mucus Rare H (None) /hpf 06/09/19 Range/Units 07:39 WBC (3.8-10.6) k/uL Potassium 5.3 H (3.5-5.1) mmol/L Chloride 109 H (98-107) mmol/L Creatinine 1.07 H (0.52-1.04) mg/dL Glucose 125 H (74-99) mg/dL Phosphorus 4.8 H (2.5-4.5) mg/dL AST (14-36) U/L Urine Appearance (Clear) Urine Protein (Negative) Urine Blood (Negative) Urine Nitrite (Negative) Ur Leukocyte Esterase (Negative) Urine RBC (0-5) /hpf Urine WBC (0-5) /hpf Urine WBC Clumps (None) /hpf Ur Squamous Epith Cells (0-4) /hpf Urine Bacteria (None) /hpf Urine Mucus (None) /hpf Microbiology - Last 24 Hours (Table) 06/08/19 19:45 Urine Culture - Preliminary Urine,Voided Diabetes panel 06/08/19 06/09/19 Range/Units 19:45 07:39 Sodium 138 141 (137-145) mmol/L Potassium 4.5 5.3 H (3.5-5.1) mmol/L Chloride 106 109 H (98-107) mmol/L Carbon Dioxide 26 27 (22-30) mmol/L BUN 14 14 (7-17) mg/dL Creatinine 1.18 H 1.07 H (0.52-1.04) mg/dL Glucose 101 H 125 H (74-99) mg/dL Calcium 10.0 8.6 (8.4-10.2) mg/dL AST 49 H (14-36) U/L ALT 17 (9-52) U/L Alkaline Phosphatase 68 (38-126) U/L Total Protein 7.9 (6.3-8.2) g/dL Albumin 4.5 (3.5-5.0) g/dL Calcium panel 06/08/19 06/09/19 Range/Units 19:45 07:39 Calcium 10.0 8.6 (8.4-10.2) mg/dL Phosphorus 4.8 H (2.5-4.5) mg/dL Albumin 4.5 (3.5-5.0) g/dL Pituitary panel 06/08/19 06/09/19 Range/Units 19:45 07:39 Sodium 138 141 (137-145) mmol/L Potassium 4.5 5.3 H (3.5-5.1) mmol/L Chloride 106 109 H (98-107) mmol/L Carbon Dioxide 26 27 (22-30) mmol/L BUN 14 14 (7-17) mg/dL Creatinine 1.18 H 1.07 H (0.52-1.04) mg/dL Glucose 101 H 125 H (74-99) mg/dL Calcium 10.0 8.6 (8.4-10.2) mg/dL Adrenal panel 10/25/19 10/26/19 Range/Units 19:45 07:39 Sodium 138 141 (137-145) mmol/L Potassium 4.5 5.3 H (3.5-5.1) mmol/L Chloride 106 109 H (98-107) mmol/L Carbon Dioxide 26 27 (22-30) mmol/L BUN 14 14 (7-17) mg/dL Creatinine 1.18 H 1.07 H (0.52-1.04) mg/dL Glucose 101 H 125 H (74-99) mg/dL Calcium 10.0 8.6 (8.4-10.2) mg/dL Total Bilirubin 0.4 (0.2-1.3) mg/dL AST 49 H (14-36) U/L ALT 17 (9-52) U/L Alkaline Phosphatase 68 (38-126) U/L Total Protein 7.9 (6.3-8.2) g/dL Albumin 4.5 (3.5-5.0) g/dL - Imaging CT scan - abdomen: report reviewed, image reviewed Assessment and Plan (1) Acute pyelonephritis Current Visit: Yes Status: Acute Code(s): N10 - ACUTE PYELONEPHRITIS SNOMED Code(s): 10033122 Plan: Continue Rocephin, pending the urine culture result. In addition to the finding of mild right hydronephrosis, the CT scan revealed multiple foci of increased attenuation within the right ureter, the significance of which is unclear. Assuming she responds favorably to antibiotics, I intend to obtain a renal ultrasound once the infection has cleared. If her symptoms fail to improve, or if there is persistent hydronephrosis and/or infection, she will be advised to undergo cystoscopy, right retrograde pyelogram, and possible right ureteroscopy. Time with Patient: Greater than 30
[2019-06-09] MEDS ORDERED: NICOTINE POLACRILEX 2 MG GUM BUCCAL PRN (14:44)
[2019-06-09] MEDS ORDERED: ALBUTEROL NEBULIZED 2.5 MG/3 ML INHALATION PRN (14:44)
--- NOTE | 2019-06-09 14:45 | P.PN ---
Subjective Progress Note Date: 06/09/19 (Delayed charting seen at 1400) Principal diagnosis: Back pain and nausea Patient is a 49-year-old female past medical history of kidney stone for 12 years ago, asthma, and prior cervical cancer who presented to the emergency department with right flank and low back pain. In the emergency department she was found have right-sided hydronephrosis along with multiple ar eas of hyperdensity in the right ureter. She was also found have a urinary tract infection. She was started on IV fluids and IV antibiotics. She was admitted for further monitoring. She was seen by Dr. Velásquez from urology. He is currently planning on conservative care with IV antibiotics. See her in the office for repeat ultrasound ensure resolution of her hydronephrosis. Should she not improve he will revisit the plan of care. Patient seen and examined at bedside. She continues to complain of nausea, decreased appetite, back pain, and dysuria. She is aware of plan of care with urology as dictated above. Objective - Vital Signs Vital signs: Vital Signs Temp 97.5 F L 06/09/19 14:00 Pulse 58 L 06/09/19 14:00 Resp 16 06/09/19 14:00 BP 106/73 06/09/19 14:00 Pulse Ox 96 06/09/19 14:00 Intake & Output 06/08/19 06/09/19 06/09/19 18:59 06:59 18:59 Intake Total 0 Balance 0 Weight 63.049 kg Intake: Oral 0 Other: # Voids 1 - Exam General: Ill-appearing, no distress, appears at stated age Derm: warm, dry Head: atraumatic, normocephalic, symmetric Eyes: EOMI, no lid lag, anicteric sclera Mouth: no lip lesion, mucus membranes dry Cardiovascular: S1S2 reg, no murmur, positive posterior tibial pulse bilateral, Lungs: CTA bilateral, no rhonchi, no rales , no accessory muscle use Abdominal: soft, nontender to palpation, no guarding, no appreciable organomegaly, right-sided CVA tenderness Ext: no gross muscle atrophy, no edema, no contractures Neuro: CN II-XI grossly intact, no focal neuro deficits Psych: Alert, oriented, appropriate affect - Labs CBC & Chem 7: 06/09/19 07:39 06/09/19 07:39 Labs: Abnormal Lab Results - Last 24 Hours (Table) 06/08/19 06/08/19 06/08/19 Range/Units 19:45 19:45 19:45 WBC 11.1 H (3.8-10.6) k/uL Potassium (3.5-5.1) mmol/L Chloride (98-107) mmol/L Creatinine 1.18 H (0.52-1.04) mg/dL Glucose 101 H (74-99) mg/dL Phosphorus (2.5-4.5) mg/dL AST 49 H (14-36) U/L Urine Appearance Cloudy H (Clear) Urine Protein 2+ H (Negative) Urine Blood Moderate H (Negative) Urine Nitrite Positive H (Negative) Ur Leukocyte Esterase Large H (Negative) Urine RBC >182 H (0-5) /hpf Urine WBC 137 H (0-5) /hpf Urine WBC Clumps Moderate H (None) /hpf Ur Squamous Epith Cells 7 H (0-4) /hpf Urine Bacteria Few H (None) /hpf Urine Mucus Rare H (None) /hpf 06/09/19 Range/Units 07:39 WBC (3.8-10.6) k/uL Potassium 5.3 H (3.5-5.1) mmol/L Chloride 109 H (98-107) mmol/L Creatinine 1.07 H (0.52-1.04) mg/dL Glucose 125 H (74-99) mg/dL Phosphorus 4.8 H (2.5-4.5) mg/dL AST (14-36) U/L Urine Appearance (Clear) Urine Protein (Negative) Urine Blood (Negative) Urine Nitrite (Negative) Ur Leukocyte Esterase (Negative) Urine RBC (0-5) /hpf Urine WBC (0-5) /hpf Urine WBC Clumps (None) /hpf Ur Squamous Epith Cells (0-4) /hpf Urine Bacteria (None) /hpf Urine Mucus (None) /hpf Microbiology - Last 24 Hours (Table) 06/08/19 19:45 Urine Culture - Preliminary Urine,Voided Assessment and Plan Assessment: Pyelonephritis with right sided hydronephrosis -Per urology no definitive stone seen on computed tomography scan but increased attenuation in the right ureter of unclear significance. -Continue with IV antibiotics, IV fluids, await urine culture -Urology recommendations appreciated -Repeat CBC in a.m. Hyperkalemia -IV fluids -Repeat potassium level this evening at 1900 -May be related to obstructive uropathy versus erroneous lab draw Tobacco abuse -Cessation -Nicotine replacement Asthma with exacerbation - prn albuterol DVT prophylaxis:Heaprin Discussed with: Patient, nursing, Dr. Velásquez Anticipated discharge: 1-[address]: home A total of 25 minutes was spent on the care of this complex patient more than 50% of the time was spent in counseling and care coordination.
[2019-06-09 19:09] LABS: Potassium 4.6 mmol/L (3.5-5.1)
[2019-06-10] MEDS: HEPARIN SODIUM,PORCINE 5,000 UNIT/ML 1 ML VIAL SQ SCH ×4 (00:38→23:26)
[2019-06-10] MEDS: ONDANSETRON 4 MG/2 ML VIAL IVP PRN (03:37)
[2019-06-10] MEDS: HYDROmorphone 1 MG/ML 1 ML SYRINGE IVP PRN ×3 (03:37→21:17)
[2019-06-10] MEDS: SODIUM CHLORIDE 0.9% 1,000 ML IV SCH ×3 (06:20→23:26)
[2019-06-10] MEDS: buPROPion XL 300 MG TAB.ER.24H PO SCH (07:27)
[2019-06-10 07:59] LABS: HCT 36.4 % (34.0-46.0); HGB 12.1 gm/dL (11.4-16.0); MCH 32.1 pg (25.0-35.0); MCHC 33.3 g/dL (31.0-37.0); MCV 96.3 fL (80.0-100.0); Mean Platelet Volume 6.4; Platelet Count 245 k/uL (150-450); RBC 3.78 m/uL (3.80-5.40); RDW 13.7 % (11.5-15.5); WBC 7.9 k/uL (3.8-10.6)
[2019-06-10 08:16] LABS: Calcium 8.3 mg/dL (8.4-10.2); Potassium 4.4 mmol/L (3.5-5.1)
--- NOTE | 2019-06-10 13:05 | P.PN ---
Progress Note - Text Progress Note Date: 06/10/19 Mrs. Del Real states that her right flank discomfort is improved. She is afebrile, and her WBC count has normalized. The preliminary urine culture shows gram-negative bacilli. Continue Rocephin pending the final urine culture results. I again reviewed with the patient the plan to obtain a renal ultrasound in approximately one month, and if the hydronephrosis persists she will be advised to undergo cystoscopy, right retrograde pyelogram, and possible right ureteroscopy.
--- NOTE | 2019-06-10 13:34 | P.PN ---
Subjective Progress Note Date: 06/10/19 Patient is a 49-year-old female with a PMH of nephrolithiasis (12 years ago), asthma, and cervical ca who presented to the ED with complaints of right back and flank pain. Patient was found to have a UTI with right-sided hydronephrosis along with multiple areas of hypodensity in the right ureter. Patient was started on IV fluids and IV antibiotics and was admitted for urology evaluation. Dr. Velásquez evaluated the patient and recommended conservative management. The patient was seen and evaluated at the bedside on 06/10. She noted continued right lower back pain along with some dysuria. She however denied fever, chills, chest pain, or shortness of breath. Objective - Vital Signs Vital signs: Vital Signs Temp 97.9 F 06/10/19 05:17 Pulse 53 L 06/10/19 05:17 Resp 16 06/10/19 08:00 BP 120/76 06/10/19 05:17 Pulse Ox 96 06/10/19 05:17 Intake & Output 06/09/19 06/10/19 06/10/19 18:59 06:59 18:59 Intake Total 0 Output Total 500 300 200 Balance -500 -300 -200 Intake: Oral 0 Output: Urine 300 200 Emesis 500 Other: Voiding Method Toilet # Voids 1 0 - Exam General: Non-toxic, in no acute distress, appears stated age, normal weight HEENT: NC/AT, anicteric sclerae, moist conjunctiva, no lid-lag, PERRLA Cardiovascular: S1/S2 wnl, no murmurs, rubs, or gallops Lungs: Clear to auscultation, normal respiratory effort, no accessory muscle use Abdominal: Soft, right-sided CVA tenderness non-distended, no guarding, rebound, or rigidity Skin: Warm, dry Extremities: No edema or contractures Psychiatric: Alert and oriented to person, place and time, appropriate affect Neuro: CN II-XII grossly intact, no focal neuro deficits - Labs CBC & Chem 7: 06/10/19 07:27 06/10/19 07:27 Labs: Abnormal Lab Results - Last 24 Hours (Table) 06/09/19 06/10/19 06/10/19 Range/Units 18:53 07: 07:27 RBC 3.78 L (3.80-5.40) m/uL Chloride 108 H (98-107) mmol/L Calcium 8.3 L (8.4-10.2) mg/dL Microbiology - Last 24 Hours (Table) 06/08/19 19:45 Urine Culture - Preliminary Urine,Voided Gram Neg Bacilli Assessment and Plan Plan: Polynephritis with right-sided hydronephrosis -Continue with IV fluids and IV antibiotics -Urology of diminished appreciated -Awaiting urine culture Tobacco abuse -Continue with nicotine patch Asthma without exacerbation -Albuterol when necessary Hyperkalemia, resolved DVT prophylaxis -Heparin Discussed with: Patient, Anticipated discharge date: 06/[address]: Home A total of 35 minutes was spent on the care of this complex patient more than 50% of the time was spent in counseling and care coordination.
[2019-06-11 00:38] VITALS: RESP 18
[2019-06-11] MEDS: HYDROmorphone 1 MG/ML 1 ML SYRINGE IVP PRN ×2 (01:26→05:41)
[2019-06-11 05:53] VITALS: BP 113/81; PULSE 55; TEMP 98.4
[2019-06-11] MEDS: HEPARIN SODIUM,PORCINE 5,000 UNIT/ML 1 ML VIAL SQ SCH (07:31)
[2019-06-11] MEDS: buPROPion XL 300 MG TAB.ER.24H PO SCH (07:31)
[2019-06-11] MEDS: SODIUM CHLORIDE 0.9% 1,000 ML IV SCH (12:02)
--- NOTE | 2019-06-11 15:47 | P.DS ---
Providers Date of admission: 06/08/19 22:24 Expected date of discharge: 06/11/19 Attending physician: Tootie Gaines MD Consults: 06/08/19 22:10 Consult Physician Stat Consulting Provider: Teja Velásquez Consult Reason/Comments: septic stone Do you want consulting provider notified?: Yes, Notify in am Primary care physician: [facility] Course: Patient is a 49-year-old female with a PMH of nephrolithiasis (12 years ago), asthma, and cervical ca who presented to the ED with complaints of right back and flank pain. Patient was found to have a UTI with right-sided hydronephrosis along with multiple areas of hypodensity in the right ureter. Patient was started on IV fluids and IV antibiotics and was admitted for urology evaluation. Dr. Velásquez evaluated the patient and recommended conservative management. Urine culture resulted as devine-sensitive E. coli. The patient was started on Augmentin with follow-up with Dr Velásquez in 4 weeks for f/u ultrasound of kidneys. The patient was seen and evaluated at the bedside on the day of discharge. She noted improvement in her pain, though continues to have some dysuria. She denied fever, chills, chest pain, shortness of breath. Physical Examination General: Non-toxic, in no acute distress, appears stated age, normal weight HEENT: NC/AT, anicteric sclerae, moist conjunctiva, no lid-lag, PERRLA Cardiovascular: S1/S2 wnl, no murmurs, rubs, or gallops Lungs: Clear to auscultation, normal respiratory effort, no accessory muscle use Abdominal: Soft, non-tender, non-distended, minimal R CVA tenderness, no guarding, rebound, or rigidity Skin: Warm, dry Extremities: No edema or contractures Psychiatric: Alert and oriented to person, place and time, appropriate affect Neuro: CN II-XII grossly intact, Strength 5/5 in all 4 extremities, Speech intact, Sensation to light touch grossly intact throughout Discharge diagnosis: Pyelonephritis w/ R sided hydronephroses; Asthma without exacerbation; Tobacco abuse; Hyperkalemia, resolved A total of 35 minutes of time were spent preparing this complex discharge summary. Patient Condition at Discharge: Stable Plan - Discharge Summary Discharge Rx Participant: No New Discharge Prescriptions: New Amoxic-Pot Clav 875-125Mg [Augmentin 875-125] 1 tab PO Q12HR #20 tablet oxyCODONE HCL/ACETAMINOPHEN [Percocet 5-325 mg] 1 tab PO Q6HR PRN 3 Days #12 tab PRN Reason: Severe Pain Continue Estrogen,Con/M-Progest Acet [Prempro 0.3 mg-1.5 mg Tablet] 1 tab PO DAILY buPROPion HCL [Wellbutrin XL] 300 mg PO DAILY Discharge Medication List Estrogen,Con/M-Progest Acet [Prempro 0.3 mg-1.5 mg Tablet] 1 tab PO DAILY 06/08/19 [History] buPROPion HCL [Wellbutrin XL] 300 mg PO DAILY 06/08/19 [History] Amoxic-Pot Clav 875-125Mg [Augmentin 875-125] 1 tab PO Q12HR #20 tablet 06/11/19 [Rx] oxyCODONE HCL/ACETAMINOPHEN [Percocet 5-325 mg] 1 tab PO Q6HR PRN 3 Days #12 tab 06/11/19 [Rx] Follow up Appointment(s)/Referral(s): Teja Velásquez MD [STAFF PHYSICIAN] - 06/14/19 10:20 am Dariusz Wilde MD [Primary Care Provider] - 06/12/19 8:30 am (Already has an appointment tomorrow at 08:30am.) Patient Instructions/Handouts: Kidney Stones (DC), Urinary Tract Infection in Women (DC) Discharge Disposition: HOME SELF-CARE
== END 2019-06-11 12:29 | disposition home or self-care (01) | DRG 690 ==
LOC: EC 18:49 → 4MS4W 22:24
PROVIDERS: ADMIT Internal Medicine; ATTEND Internal Medicine
DX: N13.6 Pyonephrosis (principal); J45.901 Unspecified asthma with (acute) exacerbation; B96.20 Unspecified Escherichia coli [E. coli] as the cause of diseases classified elsewhere; B96.89 Other specified bacterial agents as the cause of diseases classified elsewhere; E87.5 Hyperkalemia; F17.200 Nicotine dependence, unspecified, uncomplicated; F41.9 Anxiety disorder, unspecified; Z79.899 Other long term (current) drug therapy; Z82.49 Family history of ischemic heart disease and other diseases of the circulatory system; Z83.3 Family history of diabetes mellitus; Z85.41 Personal history of malignant neoplasm of cervix uteri; Z85.43 Personal history of malignant neoplasm of ovary; Z87.442 Personal history of urinary calculi; Z90.710 Acquired absence of both cervix and uterus
CPT/HCPCS: 36415; 74176; 80048; 80051; 80053; 81001; 83605; 83735; 84100; 85025; 85027; 87077; 87086; 87186; 96361; 96365; 96375; 96376; 99285

== ENCOUNTER 2019-08-25 17:48 | Emergency (ER) | payer OTHER ==
[2019-08-25 17:56] VITALS: RESP 16
[2019-08-25] MEDS ORDERED: SODIUM CHLORIDE 0.9% 500 ML 500 ML IV STA (18:13)
[2019-08-25] MEDS ORDERED: ASPIRIN 81 MG PO STA (18:13)
--- NOTE | 2019-08-25 18:24 | ED ---
General Adult HPI - General Chief complaint: Chest Pain Stated complaint: Chest Pain/SOB Time Seen by Provider: 08/25/19 18:04 Source: patient, RN notes reviewed, old records reviewed Mode of arrival: ambulatory Limitations: no limitations - History of Present Illness Initial comments: 49-year-old female patient with past history significant for ovarian cancer status post hysterectomy presents to ED for chief complaint of 3 days of cough, congestion, mild waxing and waning fevers chills. Mild amount of left parasternal chest discomfort and some mild shortness of breath as well. Patient is a active smoker. Reports nausea without emesis. Denies any other complaints at this time. Systemic: Pt denies fatigue, fever/chills, rash. Pt denies weakness, night sweats, weight loss. Neuro: Pt denies headache, visual disturbances, syncope or pre-syncope. HEENT: Pt denies ocular discharge or irritation, otalgia, rhinorrhea, pharyngitis or notable lymphadenopathy. Cardiopulmonary: Pt denies heart palpitations, dyspnea on exertion. Abdominal/GI: Pt denies abdominal pain, n/v/d. : Pt denies dysuria, burning w/ urination, frequency/urgency. Denies new onset urinary or bowel incontinence. MSK: Pt denies myalgia, loss of strength or function in extremities. Neuro: Pt denies new onset weakness, paresthesias. - Related Data Home Medications Medication Instructions Recorded Confirmed Estrogen,Con/M-Progest Acet 1 tab PO DAILY 06/08/19 06/08/19 [Prempro 0.3 mg-1.5 mg Tablet] buPROPion HCL [Wellbutrin XL] 300 mg PO DAILY 06/08/19 06/08/19 Previous Rx's Medication Instructions Recorded Amoxic-Pot Clav 875-125Mg 1 tab PO Q12HR #20 tablet 06/11/19 [Augmentin 875-125] oxyCODONE HCL/ACETAMINOPHEN 1 tab PO Q6HR PRN 3 Days #12 tab 06/11/19 [Percocet 5-325 mg] Albuterol Inhaler [Ventolin Hfa 1 - 2 puff INHALATION Q4-6H PRN #1 08/25/19 Inhaler] inhaler predniSONE 50 mg PO DAILY #4 tab 08/25/19 Allergies Allergy/AdvReac Type Severity Reaction Status Date / Time hydrocodone bitartrate AdvReac Confusion Verified 08/25/19 17:55 [From Vicodin] BLACK OLIVES Allergy Swelling Uncoded 08/25/19 17:55 Review of Systems ROS Statement: Those systems with pertinent positive or pertinent negative responses have been documented in the HPI. ROS Other: All systems not noted in ROS Statement are negative. Past Medical History Past Medical History: Asthma, Cancer, Chest Pain / Angina Additional Past Medical History / Comment(s): OVARIAN CANCER(HAD SX ONLY) hx of anorexia as a teenager, PLEURISY, KIDNEY STONE (PASSED ON OWN), MIGRAINES History of Any Multi-Drug Resistant Organisms: None Reported Past Surgical History: Cholecystectomy, Hysterectomy, Orthopedic Surgery Additional Past Surgical History / Comment(s): RIGHT KNEE ARTHROSCOPY Past Anesthesia/Blood Transfusion Reactions: No Reported Reaction Past Psychological History: Anxiety Smoking Status: Current some day smoker Past Alcohol Use History: None Reported Past Drug Use History: None Reported - Past Family History Mother Family Medical History: Diabetes Mellitus, Deep Vein Thrombosis (DVT) Father Family Medical History: Coronary Artery Disease (CAD), Hypertension General Exam - General Exam Comments Initial Comments: Constitutional: NAD, AOX3, Pt has pleasant affect. HEENT: NC/AT, trachea midline, neck supple, no lymphadenopathy. Posterior pharynx non erythematous, without exudates. External ears appear normal, without discharge. Mucous membranes moist. Eyes PERRLA, EOM intact. There is no scleral icterus. No pallor noted. Cardiopulmonary: RRR, no murmurs, rubs or gallops, no JVD noted. Lungs CTAB in anterior and posterior yeh. No peripheral edema. Chest discomfort reproducible upon palpation. Left parasternal region. Abdominal exam: Abdomen soft and non-distended. Abdomen non-tender to palpation in all 4 quadrants. Bowel sounds active in LLQ. No hepatosplenomegaly. No ecchymosis Neuro: CN II-XII grossly intact. No nuchal rigidity. No raccon eyes, no monae sign, no hemotympanum. No cervical spinal tenderness. MSK: No posterior calf tenderness bilaterally, homans sign negative bilaterally. Posterior tibialis and radial pulse +2 bilaterally. Sensation intact in upper and lower extremities. Full active ROM in upper and lower extremities, 5/5 stregnth. Limitations: no limitations Course Vital Signs 08/25/19 08/25/19 17:55 18:24 Temperature 97.7 F Pulse Rate 78 Pulse Rate [ 82 Leveler ] Respiratory 16 Rate Blood Pressure 105/73 O2 Sat by Pulse 98 Oximetry Medical Decision Making - Medical Decision Making 49-year-old female patient with past history significant for ovarian cancer status post hysterectomy presents to ED for chief complaint of 3 days of cough, congestion, mild waxing and waning fevers chills. Mild amount of left parasternal chest discomfort and some mild shortness of breath as well. Patient is a active smoker. Reports nausea without emesis. Denies any other complaints at this time. Patient vital signs are stable, afebrile. Physical exam displayed lungs to be clear to auscultation. Chest discomfort reproducible upon palpation. Patient reports that this pain that she was experiencing. Left parasternal region. Laboratory investigations are unremarkable. Troponin negative. Influenza negative. EKG nonischemic. Chest x-ray negative. Patient likely experiencing bronchitis with some mild costochondritis. Probable viral syndrome. Patient be discharged with steroids, inhaler, will use Flonase for sinus congestion advised to use anti-inflammatories for costochondritis. Adan jiang will follow-up with her primary care provider tomorrow and will return to ER if condition worsens. Case discussed with Dr. Goode. - Lab Data Result diagrams: 08/25/19 18:05 08/25/19 18:05 Lab Results 08/25/19 08/25/19 08/25/19 Range/Units 18:05 18:05 18:05 WBC 9.1 (3.8-10.6) k/uL RBC 4.23 (3.80-5.40) m/uL Hgb 13.6 (11.4-16.0) gm/dL Hct 40.0 (34.0-46.0) % MCV 94.5 (80.0-100.0) fL MCH 32.1 (25.0-35.0) pg MCHC 34.0 (31.0-37.0) g/dL RDW 12.4 (11.5-15.5) % Plt Count 273 (150-450) k/uL Neutrophils % 45 % Lymphocytes % 35 % Monocytes % 6 % Eosinophils % 9 % Basophils % 2 % Neutrophils # 4.1 (1.3-7.7) k/uL Lymphocytes # 3.2 (1.0-4.8) k/uL Monocytes # 0.6 (0-1.0) k/uL Eosinophils # 0.8 H (0-0.7) k/uL Basophils # 0.2 (0-0.2) k/uL PT 10.6 (9.0-12.0) sec INR 1.0 (<1.2) APTT 25.7 (22.0-30.0) sec Sodium 139 (137-145) mmol/L Potassium 3.9 (3.5-5.1) mmol/L Chloride 106 (98-107) mmol/L Carbon Dioxide 26 (22-30) mmol/L Anion Gap 7 mmol/L BUN 12 (7-17) mg/dL Creatinine 0.84 (0.52-1.04) mg/dL Est GFR (CKD-EPI)AfAm >90 (>60 ml/min/1.73 sqM) Est GFR (CKD-EPI)NonAf 82 (>60 ml/min/1.73 sqM) Glucose 76 (74-99) mg/dL Calcium 9.0 (8.4-10.2) mg/dL Magnesium 1.9 (1.6-2.3) mg/dL Total Bilirubin 0.5 (0.2-1.3) mg/dL AST 45 H (14-36) U/L ALT 16 (4-34) U/L Alkaline Phosphatase 75 (38-126) U/L Troponin I (0.000-0.034) ng/mL Total Protein 7.3 (6.3-8.2) g/dL Albumin 4.0 (3.5-5.0) g/dL Influenza Type A RNA (Not Detectd) Influenza Type B (PCR) (Not Detectd) 08/25/19 08/25/19 Range/Units 18:05 18:05 WBC (3.8-10.6) k/uL RBC (3.80-5.40) m/uL Hgb (11.4-16.0) gm/dL Hct (34.0-46.0) % MCV (80.0-100.0) fL MCH (25.0-35.0) pg MCHC (31.0-37.0) g/dL RDW (11.5-15.5) % Plt Count (150-450) k/uL Neutrophils % % Lymphocytes % % Monocytes % % Eosinophils % % Basophils % % Neutrophils # (1.3-7.7) k/uL Lymphocytes # (1.0-4.8) k/uL Monocytes # (0-1.0) k/uL Eosinophils # (0-0.7) k/uL Basophils # (0-0.2) k/uL PT (9.0-12.0) sec INR (<1.2) APTT (22.0-30.0) sec Sodium (137-145) mmol/L Potassium (3.5-5.1) mmol/L Chloride (98-107) mmol/L Carbon Dioxide (22-30) mmol/L Anion Gap mmol/L BUN (7-17) mg/dL Creatinine (0.52-1.04) mg/dL Est GFR (CKD-EPI)AfAm (>60 ml/min/1.73 sqM) Est GFR (CKD-EPI)NonAf (>60 ml/min/1.73 sqM) Glucose (74-99) mg/dL Calcium (8.4-10.2) mg/dL Magnesium (1.6-2.3) mg/dL Total Bilirubin (0.2-1.3) mg/dL AST (14-36) U/L ALT (4-34) U/L Alkaline Phosphatase (38-126) U/L Troponin I <0.012 (0.000-0.034) ng/mL Total Protein (6.3-8.2) g/dL Albumin (3.5-5.0) g/dL Influenza Type A RNA Not Detected (Not Detectd) Influenza Type B (PCR) Not Detected (Not Detectd) - EKG Data -: EKG Interpreted by Me (and Dr. Goode) EKG Comments: Ventricular rate 82, pO2 166, QRS 84, QT/QTC 356/4:15. Normal sinus rhythm, low voltage QRS, nonspecific T-wave abnormality. No concern for acute ischemia at this time. Disposition Clinical Impression: Bronchitis, Cough, Costochondritis Disposition: HOME SELF-CARE Condition: Stable Instructions (If sedation given, give patient instructions): Costochondritis (ED), Acute Bronchitis (ED) Additional Instructions: Follow-up with primary care provider tomorrow. Take steroids as directed. Use ibuprofen as needed for discomfort. Use inhaler as needed for shortness of breath. Return to ER if condition worsens in any way. Prescriptions: predniSONE 50 mg PO DAILY #4 tab Albuterol Inhaler [Ventolin Hfa Inhaler] 1 - 2 puff INHALATION Q4-6H PRN #1 inhaler PRN Reason: Cough Is patient prescribed a controlled substance at d/c from ED?: No Referrals: Dariusz Wilde MD [Primary Care Provider] - 1-2 days
--- NOTE | 2019-08-25 18:56 | XR ---
EXAMINATION TYPE: XR chest 2V DATE OF EXAM: 08/25/2019 COMPARISON: 05/07/2018 HISTORY: Chest pain TECHNIQUE: FINDINGS: Heart and mediastinum are normal. Lungs are clear. Diaphragm is normal. Bony thorax appears normal. IMPRESSION: Normal chest. No change.
[2019-08-25 19:22] LABS: Basophils # (A) 0.2 k/uL (0-0.2); Basophils % (A) 2 %; Eosinophils # (A) 0.8 k/uL (0-0.7); Eosinophils % (A) 9 %; HGB 13.6 gm/dL (11.4-16.0); Lymphocytes # (A) 3.2 k/uL (1.0-4.8); Lymphocytes % (A) 35 %; MCH 32.1 pg (25.0-35.0); MCV 94.5 fL (80.0-100.0); Mean Platelet Volume 7.7; Monocytes # (A) 0.6 k/uL (0-1.0); Monocytes % (A) 6 %; Neutrophils # (A) 4.1 k/uL (1.3-7.7); Neutrophils % (A) 45 %; Platelet Count 273 k/uL (150-450); RBC 4.23 m/uL (3.80-5.40); RDW 12.4 % (11.5-15.5); WBC 9.1 k/uL (3.8-10.6)
[2019-08-25] MEDS ORDERED: ACETAMINOPHEN TAB 325 MG TAB PO STA (19:29)
[2019-08-25 19:37] LABS: Partial Thromboplastin Time 25.7 sec (22.0-30.0); Prothrombin Time 10.6 sec (9.0-12.0)
[2019-08-25 19:39] LABS: ALT 16 U/L (4-34); AST 45 U/L (14-36); African American GFR (CKD) >90 (>60 ml/min/1.73 sqM); Alkaline Phosphatase 75 U/L (38-126); Anion Gap 7 mmol/L; Blood Urea Nitrogen 12 mg/dL (7-17); Carbon Dioxide 26 mmol/L (22-30); Chloride 106 mmol/L (98-107); Glucose 76 mg/dL (74-99); Magnesium 1.9 mg/dL (1.6-2.3); Non-African American GFR(CKD) 82 (>60 ml/min/1.73 sqM); Potassium 3.9 mmol/L (3.5-5.1); Sodium 139 mmol/L (137-145); Total Bilirubin 0.5 mg/dL (0.2-1.3); Total Protein 7.3 g/dL (6.3-8.2)
[2019-08-25] MEDS ORDERED: FLUTICASONE 50MCG/SPRAY NASAL 16GM EA NOSTRIL STA (20:25)
[2019-08-25] MEDS ORDERED: predniSONE 50 MG TAB PO STA (20:25)
[2019-08-25] MEDS ORDERED: IBUPROFEN 600 MG STARTER PACK 4 TAB BTL PO STA (20:38)
[2019-08-25 21:03] VITALS: BP 116/78; PULSE 73; TEMP 98.8
== END 2019-08-25 21:03 | disposition home or self-care (01) ==
LOC: EC 17:48
DX: J45.909 Unspecified asthma, uncomplicated (principal); M94.0 Chondrocostal junction syndrome [Tietze]; F41.9 Anxiety disorder, unspecified; F17.200 Nicotine dependence, unspecified, uncomplicated; Z82.49 Family history of ischemic heart disease and other diseases of the circulatory system; Z85.43 Personal history of malignant neoplasm of ovary; Z79.890 Hormone replacement therapy; Z79.899 Other long term (current) drug therapy; Z88.5 Allergy status to narcotic agent; Z91.018 Allergy to other foods
CPT/HCPCS: 99285; 36415; 93005; 80053; 83735; 84484; 85025; 85610; 85730; 87502; 71046; J7512

== ENCOUNTER → 2019-10-03 | Outpatient (CLI) | payer OTHER ==
--- NOTE | 2019-10-03 21:03 | CONS ---
CONSULTATION . DATE OF SERVICE: 10/03/2019. 49-year-old lady who has been [facility] in [facility] for snoring and excessive daytime sleepiness. HISTORY OF PRESENT ILLNESS/SLEEP-WAKE EVALUATION: SLEEP SCHEDULE: Basically patient usual sleep schedule from 10 p.m. to 7:00 am 7 days a week. FALLING ASLEEP: Sometimes she has problem with falling asleep, has TV set in bedroom. DURING SLEEP: She sleeps in different positions with snoring and witnessed episodes of stopped breathing during sleep. She wakes up from sleep 3 times and 1 time with nocturia. She is kicking at night and swinging her arms during the sleep, possibly out of dream movements. She may see her dreams right after falling asleep. DURING THE DAY/SLEEP WAKE EVALUATION: In the morning she wakes up tired, has difficulties to pay attention, falling asleep during the day. Has episodes of irritability. [place] Sleepiness Scale significantly increased to 18. PAST MEDICAL HISTORY: Past medical history basically negative. PAST SURGICAL HISTORY: Total hysterectomy, cholecystectomy. MEDICATIONS: None. SOCIAL HISTORY: Positive for smoking about half pack a day for 30 years. Alcohol consumption none. FAMILY HISTORY: Hypertension, heart problems, arthritis, asthma, lung problems, snoring, diabetes. REVIEW OF SYSTEMS: Awakenings from sleep, sleepiness during the day. PHYSICAL EXAM: 49 -year-old lady without distress. BP 99/74, HR 66, RR 16, height 5 feet 1-1/2 inches, weight 136 pounds, body mass index 25.2, temperature 98.1, oxygen saturation at room air 98%. Oropharynx extremely low position of soft palate. Mallampati 4. Some restriction of nasal breathing. Neck is 13 inches in circumference. NECK: Supple, no JVD. Thyroid is not palpable. LUNGS: Clear to percussion and to auscultation. Good air exchange. No wheezing or rhonchi. HEART: S1, S2 regular. No murmurs, gallops, or rubs. ABDOMEN: Soft and nontender. Bowel sounds are present. No organomegaly appreciated. EXTREMITIES: No clubbing or cyanosis. [employer] MANAGER: Awake, alert, and oriented X3. Cranial nerves 2 to 7 intact. There is no fasciculation or atrophy. noted. No focal deficits observed. IMPRESSION: 1. Snoring, witnessed episodes of stopped breathing during sleep, extremely low position of soft palate, Mallampati IV, awakenings from sleep, sleepiness, possible obstructive sleep apnea-hypopnea syndrome. 2. Significant excessive daytime sleepiness with [place] Sleepiness Scale of 18 dictate necessity to include hypersomnia in differential diagnosis. 3. Status post total hysterectomy. 4. Status post cholecystectomy. PLAN: 1. Polysomnography for evaluation of patient's breathing during sleep. 2. CPAP/BiPAP titration if sleep study confirms obstructive sleep apnea-hypopnea syndrome. 3. Preferable position during sleep on the side. 4. No driving if patient feels any sleepiness. 5. I will see patient for follow up visit to explain results of testing and following plan. 6. Multiple sleep latency test if the sleep study will be negative for obstructive sleep apnea-hypopnea syndrome. Thank you very much for referring this patient for consultation. Sincerely, Boone Magallon MD, PhD, FAASM Diplomat of [place] [employer] [place] [employer] [facility] [place] MMODL / IJN: [id number] /
== END | disposition home or self-care (01) ==
LOC: SLEEP 15:02
PROVIDERS: ATTEND Internal Medicine
DX: G47.30 Sleep apnea, unspecified (principal); F17.200 Nicotine dependence, unspecified, uncomplicated; Z90.710 Acquired absence of both cervix and uterus; Z90.49 Acquired absence of other specified parts of digestive tract

== ENCOUNTER 2020-08-29 15:16 | Emergency (ER) | payer OTHER ==
--- NOTE | 2020-08-29 15:34 | ED ---
Recheck HPI - General Chief Complaint: Recheck/Abnormal Lab/Rx Stated Complaint: Reaction to Covid Vaccine Time Seen by Provider: 08/29/20 15:30 Source: patient Mode of arrival: wheelchair Limitations: no limitations - History of Present Illness Initial Comments: 50-year-old female presenting to the emergency department with chief complaint of covid reaction. Patient states she typically has an adverse reaction to the influenza vaccine. States today at 9 AM she received the first dose of the Moderna covid vaccine. states about 2-3 hours later she developed sudden onset of fatigue, myalgias, nausea, vomiting, diarrhea, cough, itchy and burning eyes. States she hasn't yet taken any medication to alleviate some of the symptoms. Denies any alleviating factors at this time. - Related Data Home Medications Medication Instructions Recorded Confirmed Estrogen,Con/M-Progest Acet 1 tab PO DAILY 06/08/19 06/08/19 [Prempro 0.3 mg-1.5 mg Tablet] buPROPion HCL [Wellbutrin XL] 300 mg PO DAILY 06/08/19 06/08/19 Previous Rx's Medication Instructions Recorded Amoxic-Pot Clav 875-125Mg 1 tab PO Q12HR #20 tablet 06/11/19 [Augmentin 875-125] oxyCODONE HCL/ACETAMINOPHEN 1 tab PO Q6HR PRN 3 Days #12 tab 06/11/19 [Percocet 5-325 mg] Albuterol Inhaler (Mhu) [Ventolin 1 - 2 puff INHALATION Q4-6H PRN #1 08/25/19 Hfa Inhaler (Mhu)] inhaler predniSONE 50 mg PO DAILY #4 tab 08/25/19 Ondansetron Odt [Zofran Odt] 4 mg PO Q8HR PRN #10 tab 08/29/20 Allergies Allergy/AdvReac Type Severity Reaction Status Date / Time bee venom protein (honey bee) Allergy Anaphylaxis Verified 08/29/20 15:24 influenza virus vaccine, Allergy Nausea & Verified 08/29/20 15:24 specific Vomiting & Diarrhea hydrocodone bitartrate AdvReac Confusion Verified 08/25/19 17:55 [From Vicodin] BLACK OLIVES Allergy Swelling Uncoded 08/25/19 17:55 Review of Systems ROS Statement: Those systems with pertinent positive or pertinent negative responses have been documented in the HPI. ROS Other: All systems not noted in ROS Statement are negative. Past Medical History Past Medical History: Asthma, Cancer, Chest Pain / Angina Additional Past Medical History / Comment(s): OVARIAN CANCER(HAD SX ONLY) hx of anorexia as a teenager, PLEURISY, KIDNEY STONE (PASSED ON OWN), MIGRAINES History of Any Multi-Drug Resistant Organisms: None Reported Past Surgical History: Cholecystectomy, Hysterectomy, Orthopedic Surgery Additional Past Surgical History / Comment(s): RIGHT KNEE ARTHROSCOPY Past Anesthesia/Blood Transfusion Reactions: No Reported Reaction Past Psychological History: Anxiety Smoking Status: Current every day smoker Past Alcohol Use History: None Reported Past Drug Use History: None Reported - Past Family History Mother Family Medical History: Diabetes Mellitus, Deep Vein Thrombosis (DVT) Father Family Medical History: Coronary Artery Disease (CAD), Hypertension General Exam Limitations: no limitations General appearance: alert, in no apparent distress Head exam: Present: atraumatic, normocephalic, normal inspection Eye exam: Present: normal appearance, PERRL, EOMI Pupils: Present: normal accommodation ENT exam: Present: normal exam, normal oropharynx, mucous membranes moist Neck exam: Present: normal inspection, full ROM Respiratory exam: Present: normal lung sounds bilaterally. Absent: respiratory distress, wheezes, rales Cardiovascular Exam: Present: regular rate, normal rhythm, normal heart sounds GI/Abdominal exam: Present: soft. Absent: distended, tenderness Extremities exam: Present: normal inspection, full ROM, normal capillary refill Back exam: Present: normal inspection, full ROM Neurological exam: Present: alert, oriented X3 Psychiatric exam: Present: normal affect, normal mood Skin exam: Present: warm, dry, intact, normal color Course Vital Signs 08/29/20 08/29/20 15:20 17:00 Temperature 98.3 F 98.0 F Pulse Rate 89 72 Respiratory 20 18 Rate Blood Pressure 108/83 115/71 O2 Sat by Pulse 98 98 Oximetry Medical Decision Making - Medical Decision Making 50-year-old female presenting to the emergency department with a chief complaint of an adverse reaction to the covert vaccine. Patient typically has an adverse reaction to the influenza vaccine suspect this is very similar to that. Patient was given antibiotics and Tylenol. On reevaluation, patient reports somewhat improvement of his symptoms. Patient was discharged with Zofran starter pack and given a prescription of Zofran. Advised to take Tylenol for symptomatically relief. Advised the patient that this adverse reaction is self-limiting. Vital signs within normal limits. Return parameters thoroughly discussed the patient was upsetting agreeable. Case discussed with physician. Disposition Clinical Impression: Adverse reaction to vaccine Disposition: HOME SELF-CARE Condition: Stable Instructions (If sedation given, give patient instructions): Influenza Virus Vaccine (By injection) Additional Instructions: Follow with the primary care physician. Return to emergency department if symptoms worsen. Prescriptions: Ondansetron Odt [Zofran Odt] 4 mg PO Q8HR PRN #10 tab PRN Reason: Nausea Is patient prescribed a controlled substance at d/c from ED?: No Referrals: Ingris Roberts NPC [Primary Care Provider] - 1-2 days Time of Disposition: 16:47
[2020-08-29] MEDS ORDERED: ONDANSETRON ODT 4 MG TAB PO STA (15:41)
[2020-08-29] MEDS ORDERED: ACETAMINOPHEN TAB 500 MG TAB PO STA (15:41)
[2020-08-29] MEDS ORDERED: ONDANSETRON 4 MG ODT STARTER PACK 2 TAB BTL PO STA (16:47)
[2020-08-29 17:04] VITALS: BP 115/71; PULSE 72; RESP 18; TEMP 98
== END 2020-08-29 17:00 | disposition home or self-care (01) ==
LOC: EC 15:16
DX: R11.2 Nausea with vomiting, unspecified (principal); R19.7 Diarrhea, unspecified; M79.10 Myalgia, unspecified site; R05 Cough; R53.83 Other fatigue; T50.B95A Adverse effect of other viral vaccines, initial encounter; F41.9 Anxiety disorder, unspecified; Z79.899 Other long term (current) drug therapy; Z88.7 Allergy status to serum and vaccine; Z88.5 Allergy status to narcotic agent; Z91.030 Bee allergy status; Z91.018 Allergy to other foods; Z90.49 Acquired absence of other specified parts of digestive tract; Z90.710 Acquired absence of both cervix and uterus; Z85.43 Personal history of malignant neoplasm of ovary; F17.200 Nicotine dependence, unspecified, uncomplicated
CPT/HCPCS: 99283; S0119

== ENCOUNTER 2020-11-03 14:53 | Emergency (ER) | payer OTHER ==
[2020-11-03 14:58] VITALS: BP 112/60; PULSE 74; RESP 20; TEMP 97.8
--- NOTE | 2020-11-03 15:37 | ED ---
General Adult HPI - General Chief complaint: Extremity Problem,Nontraumatic Stated complaint: Fall rt ankle pain Time Seen by Provider: 11/03/20 15:10 Source: patient Mode of arrival: ambulatory Limitations: no limitations - History of Present Illness Initial comments: 50-year-old female with a past medical history of asthma, chest pain presents to the emergency room for a chief complaint of right ankle pain. Patient reports that about one week ago she fell off a 2 foot ladder and injured the right ankle. States that her work told her to ice and elevate it. States she had been doing so and was off all weekend. However today when she returned to work he states it started hurting again. It swelled up. She states it is painful to walk on. Patient has no other complaints at this time including shortness of breath, chest pain, abdominal pain, nausea or vomiting, headache, or visual changes. - Related Data Home Medications Medication Instructions Recorded Confirmed Estrogen,Con/M-Progest Acet 1 tab PO DAILY 06/08/19 06/08/19 [Prempro 0.3 mg-1.5 mg Tablet] buPROPion HCL [Wellbutrin XL] 300 mg PO DAILY 06/08/19 06/08/19 Previous Rx's Medication Instructions Recorded Amoxic-Pot Clav 875-125Mg 1 tab PO Q12HR #20 tablet 06/11/19 [Augmentin 875-125] oxyCODONE HCL/ACETAMINOPHEN 1 tab PO Q6HR PRN 3 Days #12 tab 06/11/19 [Percocet 5-325 mg] Albuterol Inhaler (Mhu) [Ventolin 1 - 2 puff INHALATION Q4-6H PRN #1 08/25/19 Hfa Inhaler (Mhu)] inhaler predniSONE 50 mg PO DAILY #4 tab 08/25/19 Ondansetron Odt [Zofran Odt] 4 mg PO Q8HR PRN #10 tab 08/29/20 Allergies Allergy/AdvReac Type Severity Reaction Status Date / Time bee venom protein (honey bee) Allergy Anaphylaxis Verified 11/03/20 14:59 influenza virus vaccine, Allergy Nausea & Verified 11/03/20 14:59 specific Vomiting & Diarrhea hydrocodone bitartrate AdvReac Confusion Verified 11/03/20 14:59 [From Vicodin] BLACK OLIVES Allergy Swelling Uncoded 11/03/20 14:59 Review of Systems ROS Statement: Those systems with pertinent positive or pertinent negative responses have been documented in the HPI. ROS Other: All systems not noted in ROS Statement are negative. Past Medical History Past Medical History: Asthma, Cancer, Chest Pain / Angina Additional Past Medical History / Comment(s): OVARIAN CANCER(HAD SX ONLY) hx of anorexia as a teenager, PLEURISY, KIDNEY STONE (PASSED ON OWN), MIGRAINES History of Any Multi-Drug Resistant Organisms: None Reported Past Surgical History: Cholecystectomy, Hysterectomy, Orthopedic Surgery Additional Past Surgical History / Comment(s): RIGHT KNEE ARTHROSCOPY Past Anesthesia/Blood Transfusion Reactions: No Reported Reaction Past Psychological History: Anxiety Smoking Status: Current every day smoker Past Alcohol Use History: None Reported Past Drug Use History: None Reported - Past Family History Mother Family Medical History: Diabetes Mellitus, Deep Vein Thrombosis (DVT) Father Family Medical History: Coronary Artery Disease (CAD), Hypertension General Exam Limitations: no limitations General appearance: alert, in no apparent distress Head exam: Present: atraumatic, normocephalic, normal inspection Eye exam: Present: normal appearance, PERRL, EOMI. Absent: scleral icterus, conjunctival injection, periorbital swelling ENT exam: Present: normal exam, mucous membranes moist Neck exam: Present: normal inspection, full ROM. Absent: tenderness, meningismus, lymphadenopathy Respiratory exam: Present: normal lung sounds bilaterally. Absent: respiratory distress, wheezes, rales, rhonchi, stridor Cardiovascular Exam: Present: regular rate, normal rhythm, normal heart sounds. Absent: systolic murmur, diastolic murmur, rubs, gallop, clicks GI/Abdominal exam: Present: soft, normal bowel sounds. Absent: distended, tenderness, guarding, rebound, rigid Extremities exam: Present: tenderness (Tenderness to the lateral aspect of the right ankle. No tenderness to the medial malleolus. Mild right lateral foot tenderness.), normal capillary refill (cap refill less than 2 seconds extremity. Pulses 2+ right lower extremity.), joint swelling (Minimal edema of the lateral malleolus of the right ankle. No edema of the foot. No ecchymosis.), other (Sensation intact right lower extremity). Absent: full ROM (Patient has slightly decreased plantar and dorsiflexion of the right ankle.), pedal edema, calf tenderness Course Vital Signs 03/22/21 14:56 Temperature 97.8 F Pulse Rate 74 Respiratory 20 Rate Blood Pressure 112/60 O2 Sat by Pulse 98 Oximetry Procedures - Orthopedic Splinting/Casting Injury #1 Side: right Lower Extremity Injury Location: ankle Lower Extremity Immobilizer: AirCast Other Orthopedic Equipment: crutches Medical Decision Making - Medical Decision Making HPI physical exam as documented. Neurovascular status intact. Patient does have minimal edema noted to the lateral malleolus of the right ankle. X-ray of the right foot and ankle are negative for acute fracture. Patient was placed in a air cast. Referred to orthopedics. Discussed risks therapy Motrin and Tylenol. Will return for any worsening symptoms. Disposition Clinical Impression: Ankle pain, right Disposition: HOME SELF-CARE Condition: Good Instructions (If sedation given, give patient instructions): Ankle Sprain (ED) Additional Instructions: Please take Motrin and Tylenol for pain. Please rest ice and elevate the right ankle. Follow-up with orthopedics. Return to the emergency room for any worsening symptoms. Is patient prescribed a controlled substance at d/c from ED?: No Referrals: Ingris Roberts NPC [Primary Care Provider] - 1-2 days Edwin Hammond DO [Doctor of Osteopathic Medicine] - 1-2 days Time of Disposition: 16:11
--- NOTE | 2020-11-03 15:54 | XR ---
EXAMINATION TYPE: XR foot complete RT DATE OF EXAM: 11/03/2020 CLINICAL HISTORY: pain TECHNIQUE: Frontal, lateral and oblique images of the right foot are obtained. COMPARISON: None. FINDINGS: There is no acute fracture/dislocation evident. The joint spaces appear within normal cruz its. The overlying soft tissue appears unremarkable. IMPRESSION: There is no acute fracture or dislocation. ICD 10 NO FRACTURE, INITIAL EVALUATION
--- NOTE | 2020-11-03 15:55 | XR ---
EXAMINATION TYPE: XR ankle complete RT DATE OF EXAM: 11/03/2020 COMPARISON: NONE HISTORY: Pain TECHNIQUE: Frontal, lateral and oblique images of the right ankle are obtained. COMPARISON: None. FINDINGS: There is no acute fracture/dislocation evident. The joint spaces appear within normal cruz its. The overlying soft tissue appears unremarkable. IMPRESSION: There is no acute fracture or dislocation seen.
== END 2020-11-03 16:50 | disposition home or self-care (01) ==
LOC: EC 14:53
DX: S93.401A Sprain of unspecified ligament of right ankle, initial encounter (principal); F41.9 Anxiety disorder, unspecified; F17.200 Nicotine dependence, unspecified, uncomplicated; Z79.899 Other long term (current) drug therapy; Z90.49 Acquired absence of other specified parts of digestive tract; Z90.710 Acquired absence of both cervix and uterus; Z85.43 Personal history of malignant neoplasm of ovary; Z88.7 Allergy status to serum and vaccine; Z88.8 Allergy status to other drugs, medicaments and biological substances; Z91.018 Allergy to other foods; Z91.030 Bee allergy status; W10.9XXA Fall (on) (from) unspecified stairs and steps, initial encounter
CPT/HCPCS: 99283

== ENCOUNTER 2021-02-24 20:15 | Emergency (ER) | payer OTHER ==
[2021-02-24 20:24] VITALS: RESP 16; TEMP 97.1
[2021-02-24] MEDS ORDERED: SODIUM CHLORIDE 0.9% 1,000 ML IV ONE (20:53)
[2021-02-24] MEDS ORDERED: KETOROLAC 15 MG/ML 1 ML VIAL IVP STA (20:53)
[2021-02-24] MEDS ORDERED: METOCLOPRAMIDE 5 MG/ML 2 ML VIAL IVP STA (20:53)
[2021-02-24] MEDS ORDERED: diphenhydrAMINE 50 MG/ML 1 ML VIAL IVP STA (20:53)
[2021-02-24 21:05] LABS: Basophils # (A) 0.2 k/uL (0-0.2); Basophils % (A) 2 %; Eosinophils # (A) 0.4 k/uL (0-0.7); Eosinophils % (A) 4 %; HCT 42.5 % (34.0-46.0); HGB 14.5 gm/dL (11.4-16.0); Lymphocytes # (A) 4.3 k/uL (1.0-4.8); Lymphocytes % (A) 42 %; MCH 32.2 pg (25.0-35.0); MCV 94.9 fL (80.0-100.0); Mean Platelet Volume 6.9; Monocytes # (A) 0.6 k/uL (0-1.0); Monocytes % (A) 6 %; Neutrophils # (A) 4.4 k/uL (1.3-7.7); Neutrophils % (A) 43 %; Platelet Count 286 k/uL (150-450); RBC 4.48 m/uL (3.80-5.40); WBC 10.1 k/uL (3.8-10.6)
[2021-02-24 21:16] LABS: ALT 17 U/L (4-34); AST 54 U/L (14-36); African American GFR (CKD) 78 (>60 ml/min/1.73 sqM); Albumin 4.5 g/dL (3.5-5.0); Alkaline Phosphatase 68 U/L (38-126); Anion Gap 13 mmol/L; Blood Urea Nitrogen 14 mg/dL (7-17); Calcium 9.6 mg/dL (8.4-10.2); Carbon Dioxide 19 mmol/L (22-30); Chloride 107 mmol/L (98-107); Glucose 113 mg/dL (74-99); Non-African American GFR(CKD) 67 (>60 ml/min/1.73 sqM); Potassium 4.3 mmol/L (3.5-5.1); Sodium 139 mmol/L (137-145); Total Bilirubin 0.6 mg/dL (0.2-1.3); Total Protein 7.9 g/dL (6.3-8.2)
[2021-02-24 22:16] LABS: C Reactive Protein <0.5 mg/dL (<1.0)
[2021-02-24] MEDS ORDERED: DEXAMETHASONE SOD PHOSPHATE 10 MG/ML 1 ML VIAL IV STA (22:53)
[2021-02-24] MEDS ORDERED: HYDROmorphone 0.5 MG/0.5 ML SYRINGE IVP STA (22:53)
--- NOTE | 2021-02-24 23:41 | ED ---
Headache HPI - General Chief Complaint: Headache Stated Complaint: Headache Time Seen by Provider: 02/24/21 20:36 Mode of arrival: ambulatory Limitations: no limitations - History of Present Illness Initial Comments: 50-year-old female patient presents to the emergency department today for evaluation of migraine headache. Patient states that the pain is surrounding the right eye. States she does have some blurred vision. Denies any fever or chills. Denies any pain with chewing. Denies any recent head injury. Denies use of anticoagulant medications. States she does have a history of migraines other usually posterior. States she did take Excedrin Migraine without relief. Headache started 3 days ago. Patient denies any recent rash, cough, shortness of breath, chest pain, abdominal pain, nausea, vomiting, diarrhea, constipation, back pain, numbness, tingling, dizziness, weakness, hematuria, dysuria, urinary urgency, urinary frequency, or any other complaints. - Related Data Home Medications Medication Instructions Recorded Confirmed Ibuprofen [Motrin Ib] 400 mg PO Q6H PRN 11/03/20 11/03/20 Allergies Allergy/AdvReac Type Severity Reaction Status Date / Time bee venom protein (honey bee) Allergy Anaphylaxis Verified 02/24/21 20:21 influenza virus vaccine, Allergy Nausea & Verified 02/24/21 20:21 specific Vomiting & Diarrhea hydrocodone bitartrate AdvReac Confusion Verified 02/24/21 20:21 [From Vicodin] BLACK OLIVES Allergy Swelling Uncoded 02/24/21 20:21 Review of Systems ROS Statement: Those systems with pertinent positive or pertinent negative responses have been documented in the HPI. ROS Other: All systems not noted in ROS Statement are negative. Past Medical History Past Medical History: Asthma, Cancer, Chest Pain / Angina Additional Past Medical History / Comment(s): OVARIAN CANCER(HAD SX ONLY) hx of anorexia as a teenager, PLEURISY, KIDNEY STONE (PASSED ON OWN), MIGRAINES History of Any Multi-Drug Resistant Organisms: None Reported Past Surgical History: Cholecystectomy, Hysterectomy, Orthopedic Surgery Additional Past Surgical History / Comment(s): RIGHT KNEE ARTHROSCOPY Past Anesthesia/Blood Transfusion Reactions: No Reported Reaction Past Psychological History: Anxiety Smoking Status: Current every day smoker Past Alcohol Use History: None Reported Past Drug Use History: None Reported - Past Family History Mother Family Medical History: Diabetes Mellitus, Deep Vein Thrombosis (DVT) Father Family Medical History: Coronary Artery Disease (CAD), Hypertension General Exam Limitations: no limitations General appearance: alert, in no apparent distress, other (This is a well- developed, well-nourished adult female patient in no acute distress. Vital signs upon presentation are temperature 97.1F, pulse 89, BP 94/64, pulse ox 92% on room air. ) Eye exam: Present: normal appearance, PERRL, EOMI. Absent: scleral icterus, conjunctival injection, nystagmus, periorbital swelling ENT exam: Present: normal exam, normal oropharynx, mucous membranes moist Respiratory exam: Present: normal lung sounds bilaterally. Absent: respiratory distress, wheezes, rales, rhonchi, stridor Cardiovascular Exam: Present: regular rate, normal rhythm, normal heart sounds. Absent: systolic murmur, diastolic murmur, rubs, gallop, clicks Neurological exam: Present: alert, oriented X3, CN II-XII intact Expanded Speech: Present: fluid speech Cranial nerves: EOM's Intact: Normal, Nystagmus: Normal Motor strength exam: RUE: 5, LUE: 5, RLE: 5, LLE: 5 Psychiatric exam: Present: normal affect, normal mood Skin exam: Present: warm, dry, intact, normal color. Absent: rash Course Vital Signs 02/24/21 20:21 Temperature 97.1 F L Pulse Rate 89 Respiratory 16 Rate Blood Pressure 94/69 O2 Sat by Pulse 92 L Oximetry Medical Decision Making - Medical Decision Making 50 year-old female patient percents to the emergency department today for evaluation of headache for the last 3 days. Physical examination is unremarkable. She is neurologically intact with no focal deficits. She has kelsie e right temporal tenderness. Labs reviewed and did reveal normal white blood cell count, normal ESR and CRP. She is given IV fluids, IV medications. Upon reevaluation states her headache is slightly improved. She does agree to go home. She is instructed father primary care physician for recheck in 1-2 days. Return parameters were discussed in detail. She verbalizes understanding and agrees with this plan. Case discussed with my attending Dr. Mejia. - Lab Data Result diagrams: 02/24/21 20:53 02/24/21 20:53 Lab Results 02/24/21 02/24/21 02/24/21 Range/Units 20:53 20:53 21:34 WBC 10.1 (3.8-10.6) k/uL RBC 4.48 (3.80-5.40) m/uL Hgb 14.5 (11.4-16.0) gm/dL Hct 42.5 (34.0-46.0) % MCV 94.9 (80.0-100.0) fL MCH 32.2 (25.0-35.0) pg MCHC 34.0 (31.0-37.0) g/dL RDW 13.0 (11.5-15.5) % Plt Count 286 (150-450) k/uL MPV 6.9 Neutrophils % 43 % Lymphocytes % 42 % Monocytes % 6 % Eosinophils % 4 % Basophils % 2 % Neutrophils # 4.4 (1.3-7.7) k/uL Lymphocytes # 4.3 (1.0-4.8) k/uL Monocytes # 0.6 (0-1.0) k/uL Eosinophils # 0.4 (0-0.7) k/uL Basophils # 0.2 (0-0.2) k/uL ESR 10 (0-20) mm/hr Sodium 139 (137-145) mmol/L Potassium 4.3 (3.5-5.1) mmol/L Chloride 107 (98-107) mmol/L Carbon Dioxide 19 L (22-30) mmol/L Anion Gap 13 mmol/L BUN 14 (7-17) mg/dL Creatinine 0.99 (0.52-1.04) mg/dL Est GFR (CKD-EPI)AfAm 78 (>60 ml/min/1.73 sqM) Est GFR (CKD-EPI)NonAf 67 (>60 ml/min/1.73 sqM) Glucose 113 H (74-99) mg/dL Calcium 9.6 (8.4-10.2) mg/dL Total Bilirubin 0.6 (0.2-1.3) mg/dL AST 54 H (14-36) U/L ALT 17 (4-34) U/L Alkaline Phosphatase 68 (38-126) U/L C-Reactive Protein <0.5 (<1.0) mg/dL Total Protein 7.9 (6.3-8.2) g/dL Albumin 4.5 (3.5-5.0) g/dL Disposition Clinical Impression: Headache Disposition: HOME SELF-CARE Condition: Good Instructions (If sedation given, give patient instructions): Acute Headache (ED) Additional Instructions: Increase fluids. Follow up with the primary care physician for recheck in 1-2 days. Return for any new, worsening, or concerning symptoms. Is patient prescribed a controlled substance at d/c from ED?: No Referrals: None,Stated [Primary Care Provider] - 1-2 days Time of Disposition: 23:41
[2021-02-24 23:53] VITALS: BP 101/67; PULSE 60
== END 2021-02-24 23:53 | disposition home or self-care (01) ==
LOC: EC 20:15
DX: R51.9 Headache, unspecified (principal); H53.8 Other visual disturbances; J45.909 Unspecified asthma, uncomplicated; F17.200 Nicotine dependence, unspecified, uncomplicated; Z91.030 Bee allergy status; Z88.7 Allergy status to serum and vaccine; Z88.5 Allergy status to narcotic agent; Z91.018 Allergy to other foods; Z86.69 Personal history of other diseases of the nervous system and sense organs
CPT/HCPCS: 99284; 96374; 96375; 96361; 36415; 80053; 85652; 85025; 86140; J1200; J1100; J2765; J1885; J1170

== ENCOUNTER 2021-03-11 19:38 | Emergency (ER) | payer OTHER ==
[2021-03-11 20:02] VITALS: BP 110/66; PULSE 69; TEMP 98
[2021-03-11] MEDS ORDERED: SODIUM CHLORIDE 0.9% 1,000 ML IV ONE (20:11)
--- NOTE | 2021-03-11 20:21 | ED ---
General Adult HPI - General Source: patient, RN notes reviewed, old records reviewed Mode of arrival: ambulatory Limitations: no limitations <Ricci Ramos - Last Filed: 03/11/21 21:03> <Ricci Monge - Last Filed: 03/11/21 22:18> - General Chief complaint: Headache Stated complaint: Migraine Time Seen by Provider: 03/11/21 20:00 - History of Present Illness Initial comments: This is a 50-year-old female with a past medical history significant for migraines. Patient states she's had a migraine headache 2 weeks has been seen in the ER once has been seen by her primary medical care doctor once and has an appointment with him tomorrow and an appointment with her neurologist in March. Patient states this migraine is a little different than most because it is behind her right eye when normally her migraine headache is in the right occipital region. Patient states she has been nauseated occasionally and vomited once but has not vomited recently. Patient denies any numbness weakness. Patient states she has had occasional have some blurred vision but it is not always there. Patient states when she wakes up in the morning she often does not have headache but starts later in the day. Patient denies any neck stiffness. Patient denies any recent history of fevers. Patient denies any rec ent history of any trauma. (Ricci Ramos) - Related Data Home Medications Medication Instructions Recorded Confirmed Ibuprofen [Motrin Ib] 400 mg PO Q6H PRN 11/03/20 11/03/20 Allergies Allergy/AdvReac Type Severity Reaction Status Date / Time bee venom protein (honey bee) Allergy Anaphylaxis Verified 02/24/21 20:21 influenza virus vaccine, Allergy Nausea & Verified 02/24/21 20:21 specific Vomiting & Diarrhea hydrocodone bitartrate AdvReac Confusion Verified 02/24/21 20:21 [From Vicodin] BLACK OLIVES Allergy Swelling Uncoded 02/24/21 20:21 Review of Systems ROS Other: All systems not noted in ROS Statement are negative. <Ricci Ramos - Last Filed: 03/11/21 21:03> ROS Other: All systems not noted in ROS Statement are negative. <Ricci Monge - Last Filed: 03/11/21 22:18> ROS Statement: Those systems with pertinent positive or pertinent negative responses have been documented in the HPI. Past Medical History Past Medical History: Asthma, Cancer, Chest Pain / Angina Additional Past Medical History / Comment(s): OVARIAN CANCER(HAD SX ONLY) hx of anorexia as a teenager, PLEURISY, KIDNEY STONE (PASSED ON OWN), MIGRAINES History of Any Multi-Drug Resistant Organisms: None Reported Past Surgical History: Cholecystectomy, Hysterectomy, Orthopedic Surgery Additional Past Surgical History / Comment(s): RIGHT KNEE ARTHROSCOPY Past Anesthesia/Blood Transfusion Reactions: No Reported Reaction Past Psychological History: Anxiety Smoking Status: Current every day smoker Past Alcohol Use History: None Reported Past Drug Use History: None Reported - Past Family History Mother Family Medical History: Diabetes Mellitus, Deep Vein Thrombosis (DVT) Father Family Medical History: Coronary Artery Disease (CAD), Hypertension <Ricci Ramos - Last Filed: 03/11/21 21:03> General Exam Limitations: no limitations <Ricci Ramos - Last Filed: 03/11/21 21:03> - General Exam Comments Initial Comments: GENERAL: Patient is well-developed and well-nourished. Patient is nontoxic and well- hydrated and is in mild distress. Patient is not photophobic ENT: Neck is soft and supple. No significant lymphadenopathy is noted. Oropharynx is clear. Moist mucous membranes. Neck has full range of motion without eliciting any pain. EYES: The sclera were anicteric and conjunctiva were pink and moist. Extraocular movements were intact and pupils were equal round and reactive to light. Eyelids were unremarkable. PULMONARY: Unlabored respirations. Good breath sounds bilaterally. No audible rales rhonchi or wheezing was noted. CARDIOVASCULAR: There is a regular rate and rhythm without any murmurs gallops or rubs. ABDOMEN: Soft and nontender with normal bowel sounds. SKIN: Skin is clear with no lesions or rashes and otherwise unremarkable. NEUROLOGIC: Patient is alert and oriented x3. Cranial nerves II through XII are grossly intact. Motor and sensory are also intact. Normal speech, volume and content. Symmetrical smile. MUSCULOSKELETAL: Normal extremities with adequate strength and full range of motion. LYMPHATICS: No significant lymphadenopathy is noted PSYCHIATRIC: Normal psychiatric evaluation. (Ricci Ramos) Course <Ricci Monge - Last Filed: 03/11/21 22:18> Vital Signs 03/11/21 03/11/21 19:56 21:02 Temperature 98.0 F Pulse Rate 69 Respiratory 18 20 Rate Blood Pressure 110/66 O2 Sat by Pulse 98 Oximetry - Reevaluation(s) Reevaluation #1: 03/11/21 22:17 Medical records reviewed (Ricci Monge) Reevaluation #2: 03/11/21 22:47 Patient symptoms are improved here in the ER (Ricci Monge) Medical Decision Making <Ricci Ramos - Last Filed: 03/11/21 21:03> - Radiology Data Radiology results: report reviewed (CT brain negative for acute disease), image reviewed <Ricci Monge - Last Filed: 03/11/21 22:18> - Medical Decision Making EKG shows normal sinus rhythm at 66 bpm NM interval 102 QRS is 78 QT interval 410 QTC is 429. Patient's EKG shows no ST segment elevation or depression. Dr. Monge will be taking over the care of this patient at 9 PM (Ricci Ramos) 50 female recurrent visit for headache. Patient has negative computed tomography scan here in the emergency department., Nonfocal, neurological exam here in the ED, recheck patient's headache is resolved and she can be discharged (Ricci Monge) Disposition <Ricci Ramos - Last Filed: 03/11/21 21:03> Is patient prescribed a controlled substance at d/c from ED?: No <Ricci Monge - Last Filed: 03/11/21 22:18> Clinical Impression: Headache, Migraine headache Disposition: HOME SELF-CARE Condition: Good Instructions (If sedation given, give patient instructions): Acute Headache (ED) Referrals: Jean Morales MD [Primary Care Provider] - 1-2 days
[2021-03-11 21:04] VITALS: RESP 20
--- NOTE | 2021-03-11 21:07 | CT ---
EXAMINATION TYPE: CT brain wo con DATE OF EXAM: 03/11/2021 COMPARISON: 11/27/2017 HISTORY: Headaches x2 weeks CT DLP: 1068.4 mGycm Automated exposure control for dose reduction was used. Ventricles have normal size. There is no mass effect nor midline shift. There is no sign of intracran ial hemorrhage. Calvarium appears normal. Temporal bones appear normal. There is some mucosal thickening in the maxillary sinuses. IMPRESSION: Negative CT scan of the brain. Maxillary sinusitis increased compared to old exam.
[2021-03-11] MEDS ORDERED: KETOROLAC 15 MG/ML 1 ML VIAL IVP STA (22:16)
[2021-03-11] MEDS ORDERED: diphenhydrAMINE 50 MG/ML 1 ML VIAL IVP STA (22:16)
[2021-03-11] MEDS ORDERED: PROCHLORPERAZINE INJ 10 MG/2 ML VIAL IVP STA (22:16)
== END 2021-03-11 23:01 | disposition home or self-care (01) ==
LOC: EC 19:38
DX: G43.909 Migraine, unspecified, not intractable, without status migrainosus (principal); F17.200 Nicotine dependence, unspecified, uncomplicated; J45.909 Unspecified asthma, uncomplicated; Z91.030 Bee allergy status; Z88.7 Allergy status to serum and vaccine; Z88.5 Allergy status to narcotic agent; Z91.018 Allergy to other foods
CPT/HCPCS: 99284; 96374; 96375; 96361; 93005; 70450; J1200; J0780; J1885; J1790

== ENCOUNTER → 2021-03-18 | Outpatient (CLI) | payer OTHER ==
--- NOTE | 2021-03-18 10:10 | XR ---
EXAMINATION TYPE: XR chest 2V DATE OF EXAM: 03/18/2021 COMPARISON: 08/25/2019 INDICATION: Chronic smoker short of breath TECHNIQUE: Frontal and lateral views of the chest are obtained. FINDINGS: The heart size is normal. The pulmonary vasculature is normal. The lungs are clear. IMPRESSION: 1. No acute pulmonary process.
== END | disposition home or self-care (01) ==
LOC: LABWHC1 07:37
PROVIDERS: ATTEND Internal Medicine
DX: J44.9 Chronic obstructive pulmonary disease, unspecified (principal); R68.3 Clubbing of fingers; F17.210 Nicotine dependence, cigarettes, uncomplicated
CPT/HCPCS: 71046

== ENCOUNTER 2021-04-07 16:22 | Observation (INO) | payer OTHER ==
[2021-04-07 17:17] LABS: Basophils # (A) 0.1 k/uL (0-0.2); Basophils % (A) 1 %; Eosinophils # (A) 0.3 k/uL (0-0.7); Eosinophils % (A) 4 %; HCT 40.6 % (34.0-46.0); Lymphocytes # (A) 4.2 k/uL (1.0-4.8); Lymphocytes % (A) 45 %; MCH 33.1 pg (25.0-35.0); MCHC 34.5 g/dL (31.0-37.0); MCV 96.1 fL (80.0-100.0); Mean Platelet Volume 7.3; Monocytes # (A) 0.5 k/uL (0-1.0); Monocytes % (A) 6 %; Neutrophils % (A) 42 %; Platelet Count 286 k/uL (150-450); RBC 4.22 m/uL (3.80-5.40); RDW 12.9 % (11.5-15.5); WBC 9.5 k/uL (3.8-10.6)
[2021-04-07 17:25] LABS: Partial Thromboplastin Time 24.7 sec (22.0-30.0)
[2021-04-07 17:26] LABS: Albumin 4.6 g/dL (3.5-5.0); Calcium 9.7 mg/dL (8.4-10.2); Potassium 3.9 mmol/L (3.5-5.1); Total Bilirubin 0.4 mg/dL (0.2-1.3); Total Protein 7.6 g/dL (6.3-8.2)
--- NOTE | 2021-04-07 19:27 | ED ---
Chest Pain HPI - General Chief Complaint: Chest Pain Stated Complaint: chest heaviness & arm pain Source: patient Mode of arrival: ambulatory Limitations: no limitations - History of Present Illness Initial Comments: 51-year-old white female presents to the emergency room with complaints of left- sided chest pain for the past 2 days. She describes it as a 9 out of 10 and a heaviness. She states the past she's had chest pain and they told her it was pleurisy. She has not tried any medications at home. She has no nausea or vomiting but does state that she is having diarrhea also for the past couple of days. She states she tests weekly for Covid and doesn't have that. She denies any abdominal pain but states every time she tries to eat she has diarrhea. She denies any fevers but does state that she feels very hot at night in bed. She is very anxious stating the heaviness in her chest is not right MD Complaint: chest pain -: days(s) (2) Pain Location: left chest Severity scale (1-10): 9 Quality: heaviness Consistency: constant Improves With: nothing Other Symptoms: other (diarrhea, night sweats) Treatments Prior to Arrival: none - Related Data Home Medications Medication Instructions Recorded Confirmed Ibuprofen [Motrin Ib] 400 mg PO Q6H PRN 11/03/20 11/03/20 Allergies Allergy/AdvReac Type Severity Reaction Status Date / Time bee venom protein (honey bee) Allergy Anaphylaxis Verified 04/07/21 16:33 influenza virus vaccine, Allergy Nausea & Verified 04/07/21 16:33 specific Vomiting & Diarrhea hydrocodone bitartrate AdvReac Confusion Verified 04/07/21 16:33 [From Vicodin] BLACK OLIVES Allergy Swelling Uncoded 04/07/21 16:33 Review of Systems ROS Statement: Those systems with pertinent positive or pertinent negative responses have been documented in the HPI. ROS Other: All systems not noted in ROS Statement are negative. Past Medical History Past Medical History: Asthma, Cancer, Chest Pain / Angina Additional Past Medical History / Comment(s): OVARIAN CANCER(HAD SX ONLY) hx of anorexia as a teenager, PLEURISY, KIDNEY STONE (PASSED ON OWN), MIGRAINES History of Any Multi-Drug Resistant Organisms: None Reported Past Surgical History: Cholecystectomy, Hysterectomy, Orthopedic Surgery Additional Past Surgical History / Comment(s): RIGHT KNEE ARTHROSCOPY Past Anesthesia/Blood Transfusion Reactions: No Reported Reaction Past Psychological History: Anxiety Smoking Status: Current every day smoker Past Alcohol Use History: None Reported Past Drug Use History: None Reported - Past Family History Mother Family Medical History: Diabetes Mellitus, Deep Vein Thrombosis (DVT) Father Family Medical History: Coronary Artery Disease (CAD), Hypertension General Exam Limitations: no limitations General appearance: alert, in no apparent distress Head exam: Present: atraumatic, normocephalic, normal inspection Eye exam: Present: normal appearance, PERRL, EOMI. Absent: scleral icterus, con junctival injection, periorbital swelling ENT exam: Present: normal exam, normal oropharynx, mucous membranes moist Neck exam: Present: normal inspection, full ROM. Absent: tenderness, meningismus, lymphadenopathy, thyromegaly Respiratory exam: Present: normal lung sounds bilaterally Cardiovascular Exam: Present: regular rate, normal rhythm, normal heart sounds. Absent: systolic murmur, diastolic murmur, rubs, gallop, clicks GI/Abdominal exam: Present: soft, normal bowel sounds. Absent: distended, tenderness, guarding, rebound, rigid Extremities exam: Present: normal inspection, full ROM, normal capillary refill. Absent: tenderness, pedal edema, joint swelling, calf tenderness Back exam: Absent: tenderness, CVA tenderness (R), CVA tenderness (L) Neurological exam: Present: alert, oriented X3, CN II-XII intact Psychiatric exam: Present: anxious Skin exam: Present: warm, dry, intact, normal color. Absent: rash, cyanosis, diaphoretic Course Vital Signs 04/07/21 04/07/21 16:29 19:31 Temperature 98.2 F 98.0 F Pulse Rate 74 56 L Respiratory 18 16 Rate Blood Pressure 107/74 109/76 O2 Sat by Pulse 97 97 Oximetry Chest Pain MDM - MDM There is no significant leukocytosis or anemia. Troponin is negative at 0.012, EKG shows normal sinus rhythm with no ectopy or ST elevation. Chest x-ray shows no acute cardiopulmonary process or pleural effusions. She has no complaints of shortness of breath or cough. Her vital signs are normal. Lungs are clear. Patient continues to have chest pain. She will be observed for acute coronary syndrome. Started on nitroglycerin and given aspirin and a liter bolus. Case discussed with Dr. Schaffer. Disposition Clinical Impression: ACS (acute coronary syndrome) Disposition: ADMITTED IP TO THIS HOSP Condition: Fair Referrals: Jean Morales MD [Primary Care Provider] - 1-2 days Decision Date: 04/07/21 Decision Time: 20:58
[2021-04-07] MEDS ORDERED: ASPIRIN 81 MG PO STA (19:50)
[2021-04-07] MEDS ORDERED: ACETAMINOPHEN TAB 325 MG TAB PO STA (19:51)
--- NOTE | 2021-04-07 20:24 | XR ---
EXAMINATION TYPE: XR chest 2V DATE OF EXAM: 04/07/2021 CLINICAL HISTORY: pain. TECHNIQUE: Frontal and lateral view of the chest. COMPARISON: 03/18/2021 FINDINGS: The cardiomediastinal silhouette is within normal limits for size. Pulmonary vasculature i s normal. There is no focal air space opacity. No pleural effusion. No pneumothorax seen. No acute d isplaced osseous fracture. IMPRESSION: No acute cardiopulmonary process.
[2021-04-07] MEDS ORDERED: NITROGLYCERIN OINT 1 INCH/GM PACKET TOPICAL STA (20:54)
[2021-04-07] MEDS ORDERED: SODIUM CHLORIDE 0.9% 1,000 ML IV ONE (20:55)
[2021-04-07] MEDS ORDERED: NALOXONE 0.4 MG/ML 1 ML VIAL IV PRN (21:00)
[2021-04-07] MEDS: SODIUM CHLORIDE 0.9% 1,000 ML IV SCH (22:22)
[2021-04-07] MEDS ORDERED: SUMAtriptan succinate 50 MG TAB PO PRN (23:19)
[2021-04-07] MEDS: traMADol 50 MG TAB PO PRN (23:32)
[2021-04-07] MEDS ORDERED: HEPARIN SOD,PORK IN 0.45% NACL 25,000 UNIT in 0.45% NACL 1 250ML.BAG IV SCH (23:45)
[2021-04-07] MEDS ORDERED: MORPHINE SULFATE 2 MG/ML SYRINGE IVP STA (23:55)
[2021-04-07] MEDS ORDERED: HEPARIN SODIUM 1,000 UN/ML (10ML VL) IV ONE (23:59)
[2021-04-07] MEDS ORDERED: HEPARIN SODIUM 1,000 UN/ML (10ML VL) IV PRN (23:59)
[2021-04-08] MEDS ORDERED: ASPIRIN 325 MG TAB PO STA
[2021-04-08 00:50] LABS: Basophils # (A) 0.1 k/uL (0-0.2); Basophils % (A) 1 %; Eosinophils # (A) 0.4 k/uL (0-0.7); Eosinophils % (A) 4 %; HGB 13.3 gm/dL (11.4-16.0); Lymphocytes # (A) 4.4 k/uL (1.0-4.8); Lymphocytes % (A) 50 %; MCH 33.7 pg (25.0-35.0); MCHC 34.1 g/dL (31.0-37.0); MCV 98.8 fL (80.0-100.0); Mean Platelet Volume 7.5; Monocytes # (A) 0.4 k/uL (0-1.0); Monocytes % (A) 5 %; Neutrophils # (A) 3.2 k/uL (1.3-7.7); Neutrophils % (A) 37 %; Platelet Count 251 k/uL (150-450); RBC 3.95 m/uL (3.80-5.40); WBC 8.7 k/uL (3.8-10.6)
[2021-04-08 01:19] LABS: INR 1.2 (<1.2)
[2021-04-08 01:20] LABS: Prothrombin Time 12.5 sec (9.0-12.0)
[2021-04-08] MEDS ORDERED: MORPHINE SULFATE 2 MG/ML SYRINGE IVP STA ×2 (01:32→02:24)
[2021-04-08 01:56] LABS: Partial Thromboplastin Time >200.0 sec (22.0-30.0)
[2021-04-08 08:05] LABS: Basophils # (A) 0.1 k/uL (0-0.2); Basophils % (A) 1 %; Eosinophils # (A) 0.3 k/uL (0-0.7); Eosinophils % (A) 3 %; HCT 38.9 % (34.0-46.0); Lymphocytes # (A) 3.2 k/uL (1.0-4.8); Lymphocytes % (A) 37 %; MCH 32.6 pg (25.0-35.0); MCHC 33.3 g/dL (31.0-37.0); MCV 97.8 fL (80.0-100.0); Mean Platelet Volume 7.6; Monocytes # (A) 0.4 k/uL (0-1.0); Monocytes % (A) 4 %; Neutrophils # (A) 4.6 k/uL (1.3-7.7); Neutrophils % (A) 54 %; Platelet Count 245 k/uL (150-450); RBC 3.98 m/uL (3.80-5.40); RDW 12.8 % (11.5-15.5); WBC 8.7 k/uL (3.8-10.6)
[2021-04-08 08:38] LABS: INR 1.1 (<1.2); Partial Thromboplastin Time 60.7 sec (22.0-30.0); Prothrombin Time 11.8 sec (9.0-12.0)
[2021-04-08] MEDS ORDERED: MULTIVITAMINS, THERA 1 EACH TAB PO SCH (09:00)
[2021-04-08] MEDS ORDERED: buPROPion XL 150 MG TAB.ER.24H PO SCH (09:00)
[2021-04-08] MEDS ORDERED: ASPIRIN 81 MG PO SCH (09:00)
[2021-04-08] MEDS ORDERED: DOBUTamine DRIP for NUC MED 500 MG in DEXTROSE/WATER 1 250ML.BAG IV PRN (09:34)
[2021-04-08 11:12] VITALS: RESP 20
--- NOTE | 2021-04-08 11:21 | P.HPIM ---
History of Present Illness H&P Date: 04/08/21 (Chest pain radiation into the left arm) Chief Complaint: Presented with the chest pain with radiation to left upper arm. History of present illness: Mrs. 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 Patient presented to the emergency room with the complaint of chest pain and radiation to left upper extremities. Patient seen by the PA in the emergency room with the chest pain and left arm radiation admitted to cardiac monitor floor in the [facility] 380 bed room. Patient admitted by the nurse practitioner Moshe Montes with the diagnosis coronary artery syndrome with the subsequent consultation to the cardiology for evaluation and treatment. Patient with the past history of a migraine headache seen for first time on February 26 for evaluation and to reduction and underwent complete physical on 021. And the follow-up on 04-04. Patient she was trying to quit smoking she also had a complain of left shoulder pain radiated to the back on the visit of 03/23/2021 with the underlying arthritis. His current pain is a pressure pain on the upper chest on the left side with the left arm radiation. She had history of migraine headache and underwent computed tomography scan of the brain which was done on 03/11/2021 at [facility] was ordered by Dr. nash up in the ER with no evidence of abnormalities in the indicate migraine headache. Subsequently as seen in the office started on Maxalt 5 mg tablet when necessary and subsequently insurance denied and patient restarted on Rizatriptan the migraine headache has been managed well prior to that in her previous physician was giving her Excedrin Migraine. She has 1 cat and 1 dog Children 3 sons one daughter Caffeine 2 cans per day Alcohol 2 glasses of wine a week. And she uses BACK per day. She is . ALLERGY to bee sting and Vicodin. Medication vitamin B12 500 g 2 tablet daily. Rizatriptan 5 mg tablet 1 tablet with onset of headache can be repeated in 2 hour not exceeding 2 tablet a day. He will be ordered subsequently. Motrin IB 200 mg OTC when necessary Woman's vitamins 1 tablet a day. Review of system #1 neuropsychiatry negative #2 cardiovascular she has history chest pain but sporadic not at this time #3 pulmonary she had history of pleurisy in the past 3 years ago. Number for GI no symptoms no nausea no vomiting, she had history of diarrhea for 2 days and resolved nonspecific. 5 genitourinary no symptoms #6 migraine headache has been stabilized and she seen Dr. Mariscal on 04/10/2021 1 PM. Musculoskeletal no symptoms Smoking cessation was started with nicotine patch 14 mg per 24 hour for 28 days followed by nicotine patch 7 mg per 24 hour daily for 28 days added to Wellbutrin XL 150 mg daily. Rest of review of system noncontributory. Except nitroglycerin caused her severe headache and was removed by cardiology. Hospital communicated with Dr. Leon photographer helper. Her brother had cardiac arrest, her sister of young age in the 30s, both parents has stroke and hypertension. On physical exam: Patient is conscious alert oriented 3 with no migraine headache this morning when she was seen. Head was normocephalic and atraumatic pupil was equal reactive conjunctiva was pink sclera was nonicteric and natural teeth normal hearing. Neck was supple no JVD no thyromegaly no lymphadenopathy trachea midline. Chest clear to auscultation percussion with mild increased anteroposterior diameter her chest x-ray done on this admission was negative Heart regular sinus rhythm no evidence of arrhythmias however the clinical symptoms is suspicious of coronary artery disease. Abdomen soft positive bowel sounds no organ enlargement and no tenderness in the four-quadrant Extremities no edema positive pulses normal movement Neurologically: No tremors, no lateralizing sign, no weakness, and cranial nerves stable. Assessment: 1 chest pain with radiation to the left shoulder and left arm suspicious of acute coronary artery syndrome. #2 history of chronic smoking and currently in the process of cessation of smoking. #3 history of migraine headache currently controlled. #4 history of pleurisy 3 years ago. Plan: Patient admitted on observation status #2 consultation with the cardiology for for further evaluation and treatment #3 her troponin and EKG not diagnostic of acute injury of the heart however patient still have the risk and we will continue follow with cardiology Dr. Leon or will be on the round today for for further evaluation. Discussed with the nursing staff and the will be calling me if the patient cleared for discharge and after the decision of the cardiology if he wants to do any further investigation as inpatient or outpatient and what medicine Past Medical History Past Medical History: Asthma, Cancer, Chest Pain / Angina Additional Past Medical History / Comment(s): OVARIAN CANCER(HAD SX ONLY) hx of anorexia as a teenager, PLEURISY, KIDNEY STONE (PASSED ON OWN), MIGRAINES History of Any Multi-Drug Resistant Organisms: None Reported Past Surgical History: Cholecystectomy, Hysterectomy, Orthopedic Surgery Additional Past Surgical History / Comment(s): RIGHT KNEE ARTHROSCOPY Past Anesthesia/Blood Transfusion Reactions: No Reported Reaction Additional Past Anesthesia/Blood Transfusion Reaction / Comment(s): Anesthesia makes BP drop. Past Psychological History: Anxiety Smoking Status: Current some day smoker Past Alcohol Use History: None Reported Additional Past Alcohol Use History / Comment(s): STARTTED SMOKING AT AGE 15 HAS SMOKED OFF AND ON-CURRENTLY A PACK WILL LAST 5 DAYS. SMOKING CESSATION BOOKLET GIVEN TO PT Past Drug Use History: None Reported - Past Family History Mother Family Medical History: Diabetes Mellitus, Deep Vein Thrombosis (DVT) Additional Family Medical History / Comment(s): Mother passed a year ago. Father Family Medical History: Coronary Artery Disease (CAD), Hypertension Medications and Allergies Home Medications Medication Instructions Recorded Confirmed Type Multivitamins, Thera [Multivitamin 1 tab PO DAILY 04/07/21 04/07/21 History (formulary)] Rizatriptan Benzoate [Rizatriptan] 5 mg PO BID PRN 04/07/21 04/07/21 History buPROPion XL [Wellbutrin XL] 150 mg PO DAILY 04/07/21 04/07/21 History Allergies Allergy/AdvReac Type Severity Reaction Status Date / Time bee venom protein (honey bee) Allergy Anaphylaxis Verified 04/07/21 21:01 influenza virus vaccine, Allergy Nausea & Verified 04/07/21 21:01 specific Vomiting & Diarrhea hydrocodone bitartrate AdvReac Confusion Verified 04/07/21 21:01 [From Vicodin] BLACK OLIVES Allergy Swelling Uncoded 04/07/21 16:33 Physical Exam Vitals: Vital Signs Temp Pulse Pulse Resp BP BP Pulse Ox 04/08/21 03:27 97.4 F L 57 L 16 117/74 93 L 04/08/21 02:16 65 16 103/65 98 04/08/21 01:20 52 L 16 106/67 96 04/08/21 00:48 56 L 16 120/70 97 04/08/21 00:24 53 L 16 108/69 04/08/21 00:11 54 L 16 109/65 97 04/07/21 23:10 97.6 F 66 18 145/81 95 04/07/21 23:00 97.8 F 61 18 112/77 97 04/07/21 19:31 98.0 F 56 L 16 109/76 97 04/07/21 16:29 98.2 F 74 18 107/74 97 Intake and Output 04/07/21 04/08/21 04/08/21 22:59 06:59 14:59 Intake Total 14.097 Output Total 200 Balance -185.903 Intake: Intake, IV Titration 14.097 Amount Heparin Sod,Pork in 0.45% 14.097 NaCl 25,000 unit In 0.45 % NaCl 1 250ml.bag @ 12 UNITS/KG/HR 7.62 mls/hr IV .Q24H ON LICENSE OF [facility] Rx#: [id number] Output: Emesis 200 Other: Voiding Method Toilet # Voids 0 1 Weight 63.503 kg 69.7 kg Results CBC & Chem 7: 04/08/21 07:41 04/07/21 17:00 Labs: Abnormal Lab Results - Last 24 Hours (Table) 04/07/21 04/08/21 04/08/21 Range/Units 17:00 00:21 07:41 PT 12.5 H (9.0-12.0) sec INR 1.2 H (<1.2) APTT >200.0 H* 60.7 H (22.0-30.0) sec Creatinine 1.22 H (0.52-1.04) mg/dL AST 40 H (14-36) U/L Thrombosis Risk Factor Assmnt - Choose All That Apply Any of the Below Risk Factors Present?: Yes Each Factor Represents 1 point: Age 41-60 years Other Risk Factors: No Other congenital or acquired thrombophilia - If yes, enter type in comment: No Thrombosis Risk Factor Assessment Total Risk Factor Score: 1 Thrombosis Risk Factor Assessment Level: Low Risk
[2021-04-08] MEDS ORDERED: ATROPINE SULFATE 0.1 MG/ML 10ML SYRINGE ONE (11:40)
[2021-04-08] MEDS ORDERED: METOPROLOL TARTRATE 5 MG/5 ML VIAL IVP ONE (11:40)
--- NOTE | 2021-04-08 12:53 | XR ---
EXAMINATION TYPE: XR shoulder complete LT DATE OF EXAM: 04/08/2021 CLINICAL HISTORY: pain COMPARISON: NONE TECHNIQUE: Three views of the left shoulder are obtained. FINDINGS: There is no acute fracture/dislocation evident. The acromioclavicular and glenohumeral pamela int spaces appear within normal limits. The visualized ribs are intact and unremarkable. IMPRESSION: 1. There is no acute fracture or dislocation. ICD 10 NO FRACTURE, INITIAL EVALUATION
--- NOTE | 2021-04-08 13:01 | ECHOF ---
Referral Reason:chest pain MEASUREMENTS -------- HEIGHT: 152.4 cm WEIGHT: 69.4 kg BP: 123/82 RVIDd: 2.9 cm (< 3.3) IVSd: 0.9 cm (0.6 - 1.1) LVIDd: 3.8 cm (3.9 - 5.3) LVPWd: 0.9 cm (0.6 - 1.1) IVSs: 1.3 cm LVIDs: 2.7 cm LVPWs: 1.4 cm LA Diam: 3.4 cm (2.7 - 3.8) LAESV Index (A-L): 19.88 ml/m Ao Diam: 2.9 cm (2.0 - 3.7) AV Cusp: 1.8 cm (1.5 - 2.6) MV EXCURSION: 17.961 mm (> 18.000) MV EF SLOPE: 143 mm/s (70 - 150) EPSS: 0.4 cm MV E Nikolai: 0.74 m/s MV DecT: 124 ms MV A Nikolai: 0.35 m/s MV E/A Ratio: 2.15 RAP: 5.00 mmHg RVSP: 13.89 mmHg FINDINGS -------- Sinus rhythm. This was a technically good study. The left ventricular size is normal. Left ventricular wall thickness is normal. Overall left vent ricular systolic function is normal with, an EF between 60 - 65 %. The right ventricle is normal in size. Normal LA size by volume 22+/-6 ml/m2. The right atrium is normal in size. Interatrial and interventricular septum intact. The aortic valve is trileaflet, and appears structurally normal. No aortic stenosis or regurgitation. There is trace to mild mitral regurgitation. Trace tricuspid regurgitation present. Right ventricular systolic pressure is normal at < 35 mmHg. There is no pulmonic regurgitation present. The aortic root size is normal. Normal inferior vena cava with normal inspiratory collapse consistent with estimated right atrial pre ssure of 5 mmHg. There is no pericardial effusion. CONCLUSIONS -------- 1. The left ventricular size is normal. 2. Left ventricular wall thickness is normal. 3. Overall left ventricular systolic function is normal with, an EF between 60 - 65 %. 4. The aortic valve is trileaflet, and appears structurally normal. No aortic stenosis or regurgitati on. 5. There is trace to mild mitral regurgitation. 6. Trace tricuspid regurgitation present. 7. There is no pericardial effusion. SECURITY RISK ANALYST: Meeta Da Silva RDCS
--- NOTE | 2021-04-08 13:11 | P.CRDCN ---
History of Present Illness Consult date: 04/08/21 History of present illness: HISTORY OF PRESENT ILLNESS: This is a 51-year-old female with a past medical history significant for uterine cancer with hysterectomy and nicotine dependence. Patient denies any previous cardiac history and does not follow with a vegetable scullion. We have been asked to see the patient in consultation for chest pain. Patient examined at the bedside. Patient states she has been having chest pain since Tuesday. She describes the pain as a pressure in the middle of her chest and states it goes down her left arm. Patient reports the pain is significantly worse with deep inspiration and chest wall palpation. Patient states she received morphine here at the hospital which did not help her pain. She has refused nitro due to having a headache in the past with nitro. She is currently rating her pain 8.5 out of 10. The patient does report a family history of coronary artery disease. The patient states she has a current smoker and smokes a half a pack of cigarettes per day EKG reveals sinus mechanism with no signs of acute ischemia Chest xray negative for acute process Laboratory data: WBC 8.7. Hemoglobin 13.0. Platelet count 245. Sodium 138. Potassium 3.9. BUN 10. Creatinine 1.22. Troponin negative 3. Current home cardiac medications include none Dobutamine stress test in 2018 which was negative for stress-induced ischemia. REVIEW OF SYSTEMS: At the time of my exam: CONSTITUTIONAL: Denies fever or chills. HEENT: Denies blurred vision, vision changes, or eye pain. Denies hemoptysis CARDIOVASCULAR: Denies chest pain. Denies orthopnea. Denies PND. Denies pa lpitations RESPIRATORY: Denies shortness of breath. GASTROINTESTINAL: Denies abdominal pain. Denies nausea or vomiting. HEMATOLOGIC: Denies bleeding disorders. GENITOURINARY: Denies any blood in urine. SKIN: Denies pruitis. Denies rash. PHYSICAL EXAM: VITAL SIGNS: Reviewed. GENERAL: Well-developed in no acute distress. HEENT: Head is normocephalic. Pupils are equal, round. Sclerae anicteric. Mucous membranes of the mouth are moist. Neck supple. No JVD or thyromegaly LUNGS: Respirations even and unlabored. Lungs essentially clear to auscultation bilaterally. HEART: Regular rate and rhythm. S1 and S2 heard. ABDOMEN: Soft. Nondistended. Nontender. EXTREMITIES: Normal range of motion. No clubbing or cyanosis. Peripheral pulses intact. No lower extremity edema NEUROLOGIC: Awake and alert. Oriented x 3. ASSESSMENT: Chest pain, atypical, troponins negative 3 Nicotine dependence Family history of coronary artery disease History of uterine cancer with hysterectomy PLAN: An acute coronary event has been ruled out Obtain 2-D echo to assess cardiac structure and function Patient to undergo dobutamine stress echo today to assess for stress-induced ischemia If stress test is negative, the patient may be discharged home today from a cardiac standpoint Smoking cessation recommended Further recommendations pending patient's course Nurse practitioner note has been reviewed by physician. Signing provider agrees with the documented findings, assessment, and plan of care. Past Medical History Past Medical History: Asthma, Cancer, Chest Pain / Angina Additional Past Medical History / Comment(s): OVARIAN CANCER(HAD SX ONLY) hx of anorexia as a teenager, PLEURISY, KIDNEY STONE (PASSED ON OWN), MIGRAINES History of Any Multi-Drug Resistant Organisms: None Reported Past Surgical History: Cholecystectomy, Hysterectomy, Orthopedic Surgery Additional Past Surgical History / Comment(s): RIGHT KNEE ARTHROSCOPY Past Anesthesia/Blood Transfusion Reactions: No Reported Reaction Additional Past Anesthesia/Blood Transfusion Reaction / Comment(s): Anesthesia makes BP drop. Past Psychological History: Anxiety Smoking Status: Current some day smoker Past Alcohol Use History: None Reported Additional Past Alcohol Use History / Comment(s): STARTTED SMOKING AT AGE 15 HAS SMOKED OFF AND ON-CURRENTLY A PACK WILL LAST 5 DAYS. SMOKING CESSATION BOOKLET GIVEN TO PT Past Drug Use History: None Reported - Past Family History Mother Family Medical History: Diabetes Mellitus, Deep Vein Thrombosis (DVT) Additional Family Medical History / Comment(s): Mother passed a year ago. Father Family Medical History: Coronary Artery Disease (CAD), Hypertension Medications and Allergies Home Medications Medication Instructions Recorded Confirmed Type Multivitamins, Thera [Multivitamin 1 tab PO DAILY 04/07/21 04/07/21 History (formulary)] Rizatriptan Benzoate [Rizatriptan] 5 mg PO BID PRN 04/07/21 04/07/21 History buPROPion XL [Wellbutrin XL] 150 mg PO DAILY 04/07/21 04/07/21 History Allergies Allergy/AdvReac Type Severity Reaction Status Date / Time bee venom protein (honey bee) Allergy Anaphylaxis Verified 04/07/21 21:01 influenza virus vaccine, Allergy Nausea & Verified 04/07/21 21:01 specific Vomiting & Diarrhea hydrocodone bitartrate AdvReac Confusion Verified 04/07/21 21:01 [From Vicodin] BLACK OLIVES Allergy Swelling Uncoded 04/07/21 16:33 Physical Exam Vitals: Vital Signs Temp Pulse Pulse Resp BP BP Pulse Ox 04/08/21 03:27 97.4 F L 57 L 16 117/74 93 L 04/08/21 02:16 65 16 103/65 98 04/08/21 01:20 52 L 16 106/67 96 04/08/21 00:48 56 L 16 120/70 97 04/08/21 00:24 53 L 16 108/69 04/08/21 00:11 54 L 16 109/65 97 04/07/21 23:10 97.6 F 66 18 145/81 95 04/07/21 23:00 97.8 F 61 18 112/77 97 04/07/21 19:31 98.0 F 56 L 16 109/76 97 04/07/21 16:29 98.2 F 74 18 107/74 97 Intake and Output 04/07/21 04/08/21 04/08/21 22:59 06:59 14:59 Intake Total 14.097 Output Total 200 Balance -185.903 Intake: Intake, IV Titration 14.097 Amount Heparin Sod,Pork in 0.45% 14.097 NaCl 25,000 unit In 0.45 % NaCl 1 250ml.bag @ 12 UNITS/KG/HR 7.62 mls/hr IV .Q24H [facility] Rx#: [id number] Output: Emesis 200 Other: Voiding Method Toilet # Voids 0 1 Weight 63.503 kg 69.7 kg Results 04/08/21 07:41 04/07/21 17:00 Cardiac Enzymes 04/07/21 04/07/21 04/08/21 Range/Units 17:00 17:00 00:21 AST 40 H (14-36) U/L Troponin I <0.012 <0.012 (0.000-0.034) ng/mL 04/08/21 Range/Units 02:43 AST (14-36) U/L Troponin I <0.012 (0.000-0.034) ng/mL Coagulation 04/07/21 04/08/21 04/08/21 Range/Units 17:00 00:21 07:41 PT 11.0 12.5 H 11.8 (9.0-12.0) sec APTT 24.7 >200.0 H* 60.7 H (22.0-30.0) sec CBC 04/07/21 04/08/21 04/08/21 Range/Units 17:00 00:21 07:41 WBC 9.5 8.7 8.7 (3.8-10.6) k/uL RBC 4.22 3.95 3.98 (3.80-5.40) m/uL Hgb 14.0 13.3 13.0 (11.4-16.0) gm/dL Hct 40.6 39.0 38.9 (34.0-46.0) % Plt Count 286 251 245 (150-450) k/uL Comprehensive Metabolic Panel 04/07/21 Range/Units 17:00 Sodium 138 (137-145) mmol/L Potassium 3.9 (3.5-5.1) mmol/L Chloride 106 (98-107) mmol/L Carbon Dioxide 25 (22-30) mmol/L BUN 10 (7-17) mg/dL Creatinine 1.22 H (0.52-1.04) mg/dL Glucose 76 (74-99) mg/dL Calcium 9.7 (8.4-10.2) mg/dL AST 40 H (14-36) U/L ALT 15 (4-34) U/L Alkaline Phosphatase 67 (38-126) U/L Total Protein 7.6 (6.3-8.2) g/dL Albumin 4.6 (3.5-5.0) g/dL Current Medications Generic Name Dose Route Start Last Admin Trade Name Freq PRN Reason Stop Dose Admin Aspirin 81 mg 04/08/21 09:00 Aspirin 81 Mg PO DAILY [facility] Bupropion HCl 150 mg 04/08/21 09:00 Bupropion Xl 150 Mg Tab.Er.24h PO DAILY YANETH Heparin Sodium (Porcine) 0 unit 04/07/21 23:59 Heparin Sodium 1,000 Un/Ml (10ml Vl) IV PER PROTOCOL PRN Low PTT Protocol Sodium Chloride 1,000 mls @ 75 mls/hr 04/07/21 21:00 04/07/21 22:22 Saline 0.9% IV 75 mls/hr .[id number] YANETH Administration Heparin Sodium/Sodium Chloride 250 mls @ 7.62 mls/hr 04/07/21 23:45 04/08/21 03:09 25,000 unit/ Sodium Chloride IV 9 units/kg/hr .Q24H YANETH 5.715 mls/hr Titration Protocol 12 UNITS/KG/HR Multivitamins 1 each 04/08/21 09:00 Multivitamins, Thera 1 Each Tab PO DAILY YANETH Naloxone HCl 0.2 mg 04/07/21 21:00 Naloxone 0.4 Mg/Ml 1 Ml Vial IV Q2M PRN Opioid Reversal Sumatriptan Succinate 50 mg 04/07/21 23:19 Sumatriptan Succinate 50 Mg Tab PO BID PRN Migraine Headache Tramadol HCl 50 mg 04/07/21 23:20 04/07/21 23:32 Tramadol 50 Mg Tab PO 50 mg Q6HR PRN Administration Mild Pain Intake and Output 04/07/21 04/08/21 04/08/21 22:59 06:59 14:59 Intake Total 14.097 Output Total 200 Balance -185.903 Intake: Intake, IV Titration 14.097 Amount Heparin Sod,Pork in 0.45% 14.097 NaCl 25,000 unit In 0.45 % NaCl 1 250ml.bag @ 12 UNITS/KG/HR 7.62 mls/hr IV .Q24H [facility] Rx#: [id number] Output: Emesis 200 Other: Voiding Method Toilet # Voids 0 1 Weight 63.503 kg 69.7 kg 04/08/21 07:41 04/07/21 17:00
[2021-04-08] MEDS: SODIUM CHLORIDE 0.9% 1,000 ML IV SCH (13:31)
[2021-04-08] MEDS: traMADol 50 MG TAB PO PRN (13:32)
--- NOTE | 2021-04-08 13:54 | ECHOS ---
STRESS ECHOCARDIOGRAM INDICATIONS: Chest pain BASELINE HEART RATE: 56 BASELINE BLOOD PRESSURE: 123/82 MAXIMUM HEART RATE: 144 MAXIMUM BLOOD PRESSURE: 135/79 85% MPHR: 145 100% MPHR: 170 METS: NA MAXIMUM STAGE REACHED: NA TOTAL EXERCISE TIME: 15:51 CLINICAL INFORMATION: Baseline EKG revealed normal sinus rhythm with inferolateral nonspecific ST abnormality of a mild degree. The patient was administered dobutamine as per protocol. Maximal heart rate was 144 beats per minute. Atropine in the amount of 0.5 mg was also necessary. The patient did not have significant symptoms. EKG remained inconclusive. There was no arrhythmia. No angina. By EKG criteria, this is an inconclusive dobutamine stress test because of resting EKG changes. No significant arrhythmia was noted. Baseline echo images revealed normal wall motion and wall thickening of all segments. With dobutamine administration as per protocol, there was progressive increase in contractility noted of all segments. There was no stress-induced ischemia. There was no significant arrhythmia. FINAL IMPRESSION: 1. By EKG criteria, this is an inconclusive dobutamine stress test because of resting EKG changes. 2. Normal dobutamine stress echocardiogram without evidence of ischemia. MMODL / IJN: [id number] /
[2021-04-08] MEDS ORDERED: traMADol 50 MG TAB PO SCH (16:00)
--- NOTE | 2021-04-08 17:09 | P.DS ---
Providers Date of admission: 04/07/21 20:53 Expected date of discharge: 04/08/21 (Atypical chest pain) Attending physician: Jean Morales Consults: 04/07/21 23:22 Consult Physician Routine Consulting Provider: Jorge Cervantes Consult Reason/Comments: Chest pain Do you want consulting provider notified?: Already Contacted Primary care physician: Jean Morales Discharge summary date of service 04/08/2021 Patient admitted on 04/07/2021 on observation status. Final diagnoses #1 atypical chest pain #2 negative troponin #3 negative EKG changes #4 stress echo was normal and cleared by Dr. JIE Sauceda cardiology for discharge home #5 history of migraine headache has been controlled with Maxalt. #6 history of an anxiety and depression. #7 left shoulder pain x-ray was negative. We still positive tendinitis could be the reason and the treatment as outpatient. #8 cervical neck arthritis x-ray of the neck was done however we don't have the final result and I did look at it personally and I did not see any abnor malities. ER presentation: Left upper chest pain with radiation to the shoulder and arm. With a history of migraine. Hospital course patient admitted on observation with a consultation with cardiology Cardiology did stress echo and was negative with the normal EKG and normal troponin and cleared the patient for discharge. Examination on discharge: Head was normocephalic and atraumatic pupil was equal reactive conjunctiva was pink sclera was nonicteric Oropharynx is normal hearing is normal. Neck was supple no JVD no thyromegaly no lymphadenopathy trachea midline. Chest was clear to auscultation percussion and that she is in the process of continuation to cessation of smoking Abdomen is soft positive bowel sounds no GI symptoms Extremities no edema and positive pulses. Neurologically no lateralizing sign cranial nerves II-12 is intact no tremor. Patient is ambulatory. Patient assessment: Atypical chest pain stable Migraine And anxiety. Plan follow her up as outpatient in 1-2 days and if she recurrent she may also see the handle attacher. This is the end of dictation thank you Patient Condition at Discharge: Fair Plan - Discharge Summary Discharge Rx Participant: No New Discharge Prescriptions: New Aspirin 81 mg PO DAILY chew Continue buPROPion XL [Wellbutrin XL] 150 mg PO DAILY Multivitamins, Thera [Multivitamin (formulary)] 1 tab PO DAILY Rizatriptan Benzoate [Rizatriptan] 5 mg PO BID PRN PRN Reason: Migraine Headache Discharge Medication List Multivitamins, Thera [Multivitamin (formulary)] 1 tab PO DAILY 04/07/21 [History] Rizatriptan Benzoate [Rizatriptan] 5 mg PO BID PRN 04/07/21 [History] buPROPion XL [Wellbutrin XL] 150 mg PO DAILY 04/07/21 [History] Aspirin 81 mg PO DAILY chew 04/08/21 [Rx] Follow up Appointment(s)/Referral(s): Jean Morales MD [Primary Care Provider] - 1-2 days Discharge Disposition: HOME SELF-CARE
--- NOTE | 2021-04-08 17:53 | XR ---
EXAMINATION TYPE: XR cervical spine comp DATE OF EXAM: 04/08/2021 TECHNIQUE: Frontal, lateral, oblique, and open mouth view of the cervical spine are obtained. HISTORY: R/O cervical disc disease COMPARISON: None FINDINGS: On lateral view of the cervical spine is visualized in from C1 through C7. Normal alignment without evidence of acute fracture or dislocation. No significant degenerative disc disease. The pre -vertebral soft tissue appears within normal limits. There may be some left neural foraminal bony enc roachment at C6-C7 on the left, however this may be positional. The dens is within normal limits on t he open mouth view. IMPRESSION: 1. No acute fracture or dislocation is seen in the cervical spine. 2. No significant degenerative disc disease changes on radiograph. If there is concern for disc dise ase, MRI is more sensitive exam. 3. Questionable neural foraminal bony encroachment at C6-C7 on the left, versus artifact from patien t positioning.
[2021-04-08 18:03] VITALS: BP 106/56; PULSE 67; TEMP 98
== END 2021-04-08 17:45 | disposition home or self-care (01) ==
LOC: EC 16:22 → 6NMEDSUR 20:53 → 3SCARD 21:44
PROVIDERS: ADMIT Internal Medicine; ATTEND Internal Medicine
DX: R07.89 Other chest pain (principal); G43.909 Migraine, unspecified, not intractable, without status migrainosus; F41.9 Anxiety disorder, unspecified; M25.512 Pain in left shoulder; M47.812 Spondylosis without myelopathy or radiculopathy, cervical region; F17.210 Nicotine dependence, cigarettes, uncomplicated; J45.909 Unspecified asthma, uncomplicated; Z79.899 Other long term (current) drug therapy; Z82.3 Family history of stroke; Z82.41 Family history of sudden cardiac death; Z82.49 Family history of ischemic heart disease and other diseases of the circulatory system; Z83.3 Family history of diabetes mellitus; Z85.42 Personal history of malignant neoplasm of other parts of uterus; Z85.43 Personal history of malignant neoplasm of ovary; Z87.442 Personal history of urinary calculi; Z90.710 Acquired absence of both cervix and uterus; Z91.030 Bee allergy status
CPT/HCPCS: 93351; 93306; 99285; 96376; 96361 ×2; 96365; 96366; 96375; 36415; 93005; 80053; 84484 ×2; 85025 ×2; 85610 ×2; 85730 ×2; 72050; 73030; 71046; G0378 ×3; J2270; J1644 ×2

== ENCOUNTER → 2021-04-13 | Outpatient (CLI) | payer OTHER ==
--- NOTE | 2021-04-13 15:37 | MR ---
EXAMINATION TYPE: MR brain wo con DATE OF EXAM: 04/13/2021 COMPARISON: CT brain March 11, 2021 HISTORY: Occipital Neuralgia of right side. Headache. TECHNIQUE: Multiplanar, multisequence imaging of the brain and brainstem is performed without IV cont rast. FINDINGS: Diffusion weighted images demonstrate no evidence of a recent infarct or other diffusion abnormality. There is occasional T2 hyperintense signal, less than 5 lesions are present. Ventricles and sulci are within normal limits in size for patient's age. Midline structures demonstrate normal morphology. Slightly low-lying cerebellar tonsils but not great er than 5 mm inferior displacement. Normal vascular flow voids are present. Mucus retention cysts and /or polyps in the inferior bilateral maxillary sinuses redemonstrated with mild mucosal thickening. M ild mucosal thickening ethmoid sinuses bilaterally. IMPRESSION: Chronic maxillary sinus disease redemonstrated. Minimal nonspecific white matter changes.
== END | disposition home or self-care (01) ==
LOC: RADMRIMAIN 14:44
PROVIDERS: ATTEND Psychiatry & Neurology Neurology
DX: J32.0 Chronic maxillary sinusitis (principal); G43.009 Migraine without aura, not intractable, without status migrainosus; M54.81 Occipital neuralgia
CPT/HCPCS: 70551

== ENCOUNTER → 2021-04-17 | Outpatient (CLI) | payer OTHER ==
--- NOTE | 2021-04-22 08:27 | MM ---
Reason for exam: screening (asymptomatic). History: Patient is postmenopausal and has history of ovarian cancer at age 25. Physical Findings: A clinical breast exam by your physician is recommended on an annual basis and results should be correlated with mammographic findings. MG Screening Mammo w CAD Bilateral CC and MLO view(s) were taken. No prior studies available for comparison. There are scattered fibroglandular densities. ASSESSMENT: Benign, BI-RAD 2 RECOMMENDATION: Routine screening mammogram of both breasts in 1 year.
== END | disposition home or self-care (01) ==
LOC: RADMAMWWP 10:56
PROVIDERS: ATTEND Internal Medicine
DX: Z12.31 Encounter for screening mammogram for malignant neoplasm of breast (principal)
CPT/HCPCS: 77067

== ENCOUNTER 2021-10-07 19:47 | Emergency (ER) | payer OTHER ==
[2021-10-07] MEDS ORDERED: KETOROLAC 15 MG/ML 1 ML VIAL IVP STA (22:51)
[2021-10-07 23:09] LABS: Basophils # (A) 0.1 k/uL (0-0.2); Basophils % (A) 1 %; Eosinophils # (A) 0.5 k/uL (0-0.7); Eosinophils % (A) 5 %; HGB 14.1 gm/dL (11.4-16.0); Lymphocytes # (A) 4.3 k/uL (1.0-4.8); Lymphocytes % (A) 44 %; MCH 32.7 pg (25.0-35.0); MCHC 34.2 g/dL (31.0-37.0); MCV 95.6 fL (80.0-100.0); Mean Platelet Volume 7.7; Monocytes # (A) 0.6 k/uL (0-1.0); Monocytes % (A) 6 %; Neutrophils # (A) 4.2 k/uL (1.3-7.7); Neutrophils % (A) 43 %; Platelet Count 263 k/uL (150-450); WBC 9.8 k/uL (3.8-10.6)
[2021-10-07 23:14] LABS: Albumin 4.5 g/dL (3.5-5.0); Calcium 9.8 mg/dL (8.4-10.2); Potassium 4.5 mmol/L (3.5-5.1); Total Bilirubin 0.6 mg/dL (0.2-1.3)
[2021-10-07 23:18] LABS: Appearance,Urine Cloudy (Clear); Bacteria,Urine Few /hpf; Bilirubin,Urine Negative (Negative); Blood,Urine Negative (Negative); Color,Urine Yellow; Glucose,Urine (UA) Negative (Negative); Ketones,Urine Negative (Negative); Leukocyte Esterase,Urine Small (Negative); Mucus,Urine Rare /hpf; Nitrite,Urine Negative (Negative); PH, Urine 5.5 (5.0-8.0); Protein,Urine Negative (Negative); RBC,Urine 3 /hpf (0-5); Specific Gravity,Urine 1.011 (1.001-1.035); Squamous Epithelial Cell,Urine 8 /hpf (0-4); Urobilinogen,Urine <2.0 mg/dL (<2.0); WBC,Urine 18 /hpf (0-5)
[2021-10-07] MEDS ORDERED: SODIUM CHLORIDE 0.9% 1,000 ML IV ONE (23:43)
--- NOTE | 2021-10-07 23:49 | ED ---
General Adult HPI - General Chief complaint: Abdominal Pain Stated complaint: kidney pain Time Seen by Provider: 10/07/21 22:05 Source: patient Mode of arrival: ambulatory Limitations: no limitations - History of Present Illness Initial comments: This patient is a 51-year-old woman who presents with complaint that she is having low back pain since Tuesday. Patient states that it is all across the low back, and it reminds her of pain she previously had with kidney infection. She did go and see her physician on Tuesday, and was given a course of cip rofloxacin which she was to take for 7 days. She has been taking that but the pain has continued and so she presents here to be evaluated. She has not had urinary symptoms. She is not having change in bowel movements, no loss of continence or urinary retention. The patient states the pain is aching, it is worse with certain positions or movements. She did not have any inciting trauma. -: days(s) - Related Data Home Medications Medication Instructions Recorded Confirmed Multivitamins, Thera [Multivitamin 1 tab PO DAILY 04/07/21 10/07/21 (formulary)] buPROPion XL [Wellbutrin XL] 150 mg PO DAILY 04/07/21 10/07/21 Cholecalciferol (Vitamin D3) 125 mcg PO DAILY 07/23/21 10/07/21 [Vitamin D3 (125 MCG = 5,000 IU)] Ammonium Lactate Lotion 1 applic TOPICAL BID 10/07/21 10/07/21 [Lac-Hydrin 12% Lotion] Atorvastatin Calcium [Lipitor] 20 mg PO DAILY 10/07/21 10/07/21 Ciprofloxacin HCl [Cipro] 500 mg PO BID 10/07/21 10/07/21 Cyanocobalamin (Vitamin B-12) 500 mcg PO DAILY 10/07/21 10/07/21 [Vitamin B-12] Levothyroxine Sodium [Euthyrox] 50 mcg PO DAILY 10/07/21 10/07/21 Previous Rx's Medication Instructions Recorded Ibuprofen [Motrin] 600 mg PO Q8HR PRN #20 tab 10/08/21 Methocarbamol [Robaxin-750] 750 mg PO TID PRN #30 tablet 10/08/21 Allergies Allergy/AdvReac Type Severity Reaction Status Date / Time bee venom protein (honey bee) Allergy Anaphylaxis Verified 10/07/21 23:33 influenza virus vaccine, Allergy Nausea & Verified 10/07/21 23:33 specific Vomiting & Diarrhea hydrocodone bitartrate AdvReac Confusion Verified 10/07/21 23:33 [From Vicodin] BLACK OLIVES Allergy Swelling Uncoded 10/07/21 20:08 Review of Systems ROS Statement: Those systems with pertinent positive or pertinent negative responses have been documented in the HPI. ROS Other: All systems not noted in ROS Statement are negative. Constitutional: Denies: fever, chills Respiratory: Denies: cough, dyspnea Cardiovascular: Denies: chest pain, palpitations, edema Gastrointestinal: Denies: abdominal pain, vomiting, diarrhea, constipation Genitourinary: Denies: dysuria, hematuria Musculoskeletal: Reports: as per HPI, back pain Skin: Denies: rash Neurological: Denies: headache, weakness, numbness, paresthesias Past Medical History Past Medical History: Asthma, Cancer, Chest Pain / Angina, Skin Disorder, Thyroid Disorder Additional Past Medical History / Comment(s): Ovarian cancer w/ surgery. hx of anorexia as a teenager, Pleurisy, Kidney stones occ, Migraines since age 9, had head injury. Hypoglycemic. Lt hand fingernails coming off. Hypothyroid. History of Any Multi-Drug Resistant Organisms: None Reported Past Surgical History: Cholecystectomy, Hysterectomy, Orthopedic Surgery Additional Past Surgical History / Comment(s): Lt oophorectomy. Rt KNEE ARTHROSCOPY Past Anesthesia/Blood Transfusion Reactions: Previous Problems w/ Anesthesia Additional Past Anesthesia/Blood Transfusion Reaction / Comment(s): Anesthesia makes BP drop really low. Past Psychological History: Anxiety Smoking Status: Current every day smoker, Light tobacco smoker - Past Family History Mother Family Medical History: Diabetes Mellitus, Deep Vein Thrombosis (DVT) Additional Family Medical History / Comment(s): Mother passed a year ago. Father Family Medical History: Coronary Artery Disease (CAD), Hypertension General Exam Limitations: no limitations General appearance: alert, in no apparent distress Head exam: Present: atraumatic, normocephalic Neck exam: Present: normal inspection, full ROM Respiratory exam: Present: normal lung sounds bilaterally. Absent: respiratory distress, wheezes, rales, rhonchi, stridor Cardiovascular Exam: Present: regular rate, normal rhythm, normal heart sounds. Absent: systolic murmur, diastolic murmur, rubs, gallop GI/Abdominal exam: Present: soft. Absent: distended, tenderness, guarding, rebound, rigid, mass, pulsatile mass Extremities exam: Present: normal inspection, normal capillary refill. Absent: pedal edema, calf tenderness Back exam: Present: normal inspection. Absent: CVA tenderness (R), CVA tenderness (L) Neurological exam: Present: alert. Absent: motor sensory deficit Skin exam: Present: warm, dry, intact, normal color. Absent: rash Course Vital Signs 10/07/21 10/08/21 20:04 01:16 Temperature 98.0 F 97.5 F L Pulse Rate 74 56 L Respiratory 18 19 Rate Blood Pressure 86/61 103/73 O2 Sat by Pulse 98 99 Oximetry Medical Decision Making - Lab Data Result diagrams: 10/07/21 22:50 10/07/21 22:50 Lab Results 10/07/21 10/07/21 10/07/21 Range/Units 22:50 22:50 22:50 WBC 9.8 (3.8-10.6) k/uL RBC 4.30 (3.80-5.40) m/uL Hgb 14.1 (11.4-16.0) gm/dL Hct 41.0 (34.0-46.0) % MCV 95.6 (80.0-100.0) fL MCH 32.7 (25.0-35.0) pg MCHC 34.2 (31.0-37.0) g/dL RDW 13.0 (11.5-15.5) % Plt Count 263 (150-450) k/uL MPV 7.7 Neutrophils % 43 % Lymphocytes % 44 % Monocytes % 6 % Eosinophils % 5 % Basophils % 1 % Neutrophils # 4.2 (1.3-7.7) k/uL Lymphocytes # 4.3 (1.0-4.8) k/uL Monocytes # 0.6 (0-1.0) k/uL Eosinophils # 0.5 (0-0.7) k/uL Basophils # 0.1 (0-0.2) k/uL Sodium 136 L (137-145) mmol/L Potassium 4.5 (3.5-5.1) mmol/L Chloride 105 (98-107) mmol/L Carbon Dioxide 22 (22-30) mmol/L Anion Gap 9 mmol/L BUN 18 H (7-17) mg/dL Creatinine 1.14 H (0.52-1.04) mg/dL Est GFR (CKD-EPI)AfAm 65 (>60 ml/min/1.73 sqM) Est GFR (CKD-EPI)NonAf 57 (>60 ml/min/1.73 sqM) Glucose 116 H (74-99) mg/dL Calcium 9.8 (8.4-10.2) mg/dL Total Bilirubin 0.6 (0.2-1.3) mg/dL AST 41 H (14-36) U/L ALT 16 (4-34) U/L Alkaline Phosphatase 67 (38-126) U/L Total Protein 8.0 (6.3-8.2) g/dL Albumin 4.5 (3.5-5.0) g/dL Amylase 119 H (30-110) U/L Lipase 344 H (23-300) U/L Urine Color Yellow Urine Appearance Cloudy H (Clear) Urine pH 5.5 (5.0-8.0) Ur Specific [place] 1.011 (1.001-1.035) Urine Protein Negative (Negative) Urine Glucose (UA) Negative (Negative) Urine Ketones Negative (Negative) Urine Blood Negative (Negative) Urine Nitrite Negative (Negative) Urine Bilirubin Negative (Negative) Urine Urobilinogen <2.0 (<2.0) mg/dL Ur Leukocyte Esterase Small H (Negative) Urine RBC 3 (0-5) /hpf Urine WBC 18 H (0-5) /hpf Ur Squamous Epith Cells 8 H (0-4) /hpf Urine Bacteria Few H (None) /hpf Urine Mucus Rare H (None) /hpf Disposition Clinical Impression: Back pain Disposition: HOME SELF-CARE Condition: Good Prescriptions: Ibuprofen [Motrin] 600 mg PO Q8HR PRN #20 tab PRN Reason: Pain Methocarbamol [Robaxin-750] 750 mg PO TID PRN #30 tablet PRN Reason: pain Is patient prescribed a controlled substance at d/c from ED?: No Referrals: Jean Morales MD [Primary Care Provider] - 1-2 days
--- NOTE | 2021-10-08 00:30 | CT ---
EXAMINATION TYPE: CT abdomen pelvis wo con DATE OF EXAM: 10/08/2021 COMPARISON: 06/08/2019 HISTORY: Kidney pain CT DLP: 531.2 mGycm Automated exposure control for dose reduction was used. Images obtained from the diaphragm to the floor the pelvis without contrast. The lung bases show mild subsegmental atelectasis. Heart size is normal. There is no pericardial effu reema. There is no pleural effusion. Liver and spleen are intact. Stomach is intact. There is no pancr eatic mass. There are clips from cholecystectomy. The bile ducts are not dilated. There is no adrenal mass. Kidneys have normal size. There is no hydronephrosis. Ureters are not dilat ed. There is no retroperitoneal adenopathy. Appendix is posterior and appears normal. Bladder distends smoothly. There is no inguinal hernia. There are multiple retroperitoneal calcificat ions that are likely vascular. I see no definite ureteral calculus. There is no hydronephrosis. Urete rs are not dilated. Bladder distends smoothly. There is no inguinal hernia. There is no free fluid in the pelvis. There is no mesenteric edema. There is no ascites or free air. There is no bowel obstruction. The lumbar vertebrae have normal spacing and alignment. Posterior elements are intact. Bony pelvis is intact. Hip joints appear intact. IMPRESSION: Normal appendix. Multiple retroperitoneal calcifications are likely vascular and are slightly increas ed compared to old exam. No evidence of renal stone or obstruction. There is clearing of the right-si ded hydronephrosis and hydroureter compared to old exam. Mild subsegmental atelectasis similar to old exam.
[2021-10-08] MEDS ORDERED: MORPHINE SULFATE 4 MG/ML SYRINGE IV STA (00:44)
[2021-10-08] MEDS ORDERED: HYDROmorphone 1 MG/ML 1 ML SYRINGE IVP STA (01:41)
[2021-10-08] MEDS ORDERED: ONDANSETRON 4 MG/2 ML VIAL IVP STA (02:39)
[2021-10-08 05:36] VITALS: BP 102/73; PULSE 65; RESP 16; TEMP 97.9
== END 2021-10-08 05:31 | disposition home or self-care (01) ==
LOC: EC 19:47
DX: M54.50 Low back pain, unspecified (principal); J45.909 Unspecified asthma, uncomplicated; E07.9 Disorder of thyroid, unspecified; F17.200 Nicotine dependence, unspecified, uncomplicated; Z79.890 Hormone replacement therapy; Z88.7 Allergy status to serum and vaccine; Z91.018 Allergy to other foods; Z88.5 Allergy status to narcotic agent; Z91.030 Bee allergy status
CPT/HCPCS: 36415; 80053; 82150; 83690; 85025; 81001; 87086; 74176; 96375; 96374; 99284; J2270; J2405; J1170; J1885

== ENCOUNTER 2022-04-15 09:13 | Emergency (ER) | payer OTHER ==
[2022-04-15 09:37] VITALS: BP 103/72; PULSE 63; RESP 18; TEMP 97.5
[2022-04-15] MEDS ORDERED: SODIUM CHLORIDE 0.9% 2,000 ML IV STA (10:38)
[2022-04-15] MEDS ORDERED: KETOROLAC 15 MG/ML 1 ML VIAL IVP STA (10:38)
[2022-04-15] MEDS ORDERED: ONDANSETRON 4 MG/2 ML VIAL IVP STA (10:38)
--- NOTE | 2022-04-15 11:36 | CT ---
EXAMINATION TYPE: CT abdomen pelvis wo con CT DLP: 535.4 mGycm, Automated exposure control for dose reduction was used. DATE OF EXAM: 04/15/2022 11:19 AM COMPARISON: CT abdomen pelvis most recent from 10/08/2021 . CLINICAL INDICATION:Female, 52 years old with history of right back pain, hx of kidney stone; Right f lank pain, history of kidney stone TECHNIQUE: Renal stone protocol CT of the abdomen and pelvis without IV or oral contrast. Lack of IV or oral contrast limits evaluation of solid and hollow organ viscera. Coronal and sagittal reformats were performed. FINDINGS: LOWER CHEST: Minimal left lower lobe subsegmental atelectasis. ABDOMEN LIVER: Unremarkable noncontrast appearance. GALLBLADDER AND BILE DUCTS: Post cholecystectomy. No biliary ductal dilatation. PANCREAS: Unremarkable noncontrast appearance. SPLEEN: Unremarkable noncontrast appearance. ADRENAL GLANDS: Unremarkable noncontrast appearance. KIDNEYS AND URETERS: No evidence of hydronephrosis or renal calculus. No ureteral calculi. PELVIS BLADDER: Unremarkable REPRODUCTIVE: The uterus is surgically absent. No suspicious adnexal mass. ABDOMEN & PELVIS STOMACH AND BOWEL: Stomach and duodenum are unremarkable. No focal wall thickening or surrounding inf lammatory changes. The appendix is within normal limits. No evidence of bowel obstruction. PERITONEUM: No evidence of pneumoperitoneum or free fluid. VASCULATURE: No evidence of aortic aneurysm. Multiple retroperitoneal calcifications are likely vascu lar and stable. MUSCULOSKELETAL: No acute osseous abnormalities LYMPH NODES: No gross evidence for lymphadenopathy. SOFT TISSUE/ABDOMINAL WALL: Unremarkable IMPRESSION: 1. No acute abdominal/pelvic process. 2. No evidence of obstructive uropathy or renal calculi.
[2022-04-15 11:59] LABS: Basophils # (A) 0.1 k/uL (0-0.2); Basophils % (A) 1 %; Eosinophils # (A) 0.4 k/uL (0-0.7); Eosinophils % (A) 5 %; HCT 45.9 % (34.0-46.0); HGB 15.1 gm/dL (11.4-16.0); Lymphocytes # (A) 3.7 k/uL (1.0-4.8); Lymphocytes % (A) 51 %; MCH 31.6 pg (25.0-35.0); MCV 95.9 fL (80.0-100.0); Mean Platelet Volume 7.6; Monocytes # (A) 0.3 k/uL (0-1.0); Monocytes % (A) 4 %; Neutrophils # (A) 2.7 k/uL (1.3-7.7); Neutrophils % (A) 37 %; Platelet Count 273 k/uL (150-450); RBC 4.78 m/uL (3.80-5.40); RDW 12.9 % (11.5-15.5); WBC 7.3 k/uL (3.8-10.6)
[2022-04-15 12:17] LABS: Albumin 4.7 g/dL (3.5-5.0); Calcium 9.5 mg/dL (8.4-10.2); Potassium 4.1 mmol/L (3.5-5.1); Total Bilirubin 0.6 mg/dL (0.2-1.3); Total Protein 8.1 g/dL (6.3-8.2)
--- NOTE | 2022-04-15 12:20 | ED ---
Back Pain HPI - General Chief Complaint: Back Pain/Injury Stated Complaint: Kidney stone Time Seen by Provider: 04/15/22 10:30 Source: patient Limitations: no limitations - History of Present Illness Initial Comments: Patient is a 52-year-old female with a past medical history of septic kidney stone, chronic kidney disease stage III, hysterectomy, and left oophorectomy who presents to the emergency department with a chief complaint of right lower back pain. Patient states symptoms started 1 week ago and feel like a kidney stone. Reports pain in the right lower back which radiates to the right side. Denies injury. Has taken Tylenol and Motrin with some relief. Reports nausea without vomiting. States she is having trouble with continuous urinary stream. Denies fever, chills, burning with urination, urinary incontinence, urinary retention. Denies leg weakness. Denies numbness and tingling of the legs, groin, and buttock region. - Related Data Home Medications Medication Instructions Recorded Confirmed Multivitamins, Thera [Multivitamin 1 tab PO DAILY 04/07/21 10/07/21 (formulary)] buPROPion XL [Wellbutrin XL] 150 mg PO DAILY 04/07/21 10/07/21 Cholecalciferol (Vitamin D3) 125 mcg PO DAILY 07/23/21 10/07/21 [Vitamin D3 (125 MCG = 5,000 IU)] Ammonium Lactate Lotion 1 applic TOPICAL BID 10/07/21 10/07/21 [Lac-Hydrin 12% Lotion] Atorvastatin Calcium [Lipitor] 20 mg PO DAILY 10/07/21 10/07/21 Ciprofloxacin HCl [Cipro] 500 mg PO BID 10/07/21 10/07/21 Cyanocobalamin (Vitamin B-12) 500 mcg PO DAILY 10/07/21 10/07/21 [Vitamin B-12] Levothyroxine Sodium [Euthyrox] 50 mcg PO DAILY 10/07/21 10/07/21 Previous Rx's Medication Instructions Recorded Ibuprofen [Motrin] 600 mg PO Q8HR PRN #20 tab 10/08/21 methocarbamoL [Robaxin-750] 750 mg PO TID PRN #30 tablet 10/08/21 Cephalexin [Keflex] 250 mg PO Q6HR 5 Days #20 cap 04/15/22 Allergies Allergy/AdvReac Type Severity Reaction Status Date / Time bee venom protein (honey bee) Allergy Anaphylaxis Verified 04/15/22 09:37 influenza virus vaccine, Allergy Nausea & Verified 04/15/22 09:37 specific Vomiting & Diarrhea hydrocodone bitartrate AdvReac Confusion Verified 04/15/22 09:37 [From Vicodin] BLACK OLIVES Allergy Swelling Uncoded 04/15/22 09:37 Review of Systems ROS Statement: Those systems with pertinent positive or pertinent negative responses have been documented in the HPI. ROS Other: All systems not noted in ROS Statement are negative. Past Medical History Past Medical History: Asthma, Cancer, Chest Pain / Angina, Skin Disorder, Thyroid Disorder Additional Past Medical History / Comment(s): Ovarian cancer w/ surgery. hx of anorexia as a teenager, Pleurisy, Kidney stones occ, Migraines since age 9, had head injury. Hypoglycemic. Lt hand fingernails coming off. Hypothyroid. History of Any Multi-Drug Resistant Organisms: None Reported Past Surgical History: Cholecystectomy, Hysterectomy, Orthopedic Surgery Additional Past Surgical History / Comment(s): Lt oophorectomy. Rt KNEE ARTHROSCOPY Past Anesthesia/Blood Transfusion Reactions: Previous Problems w/ Anesthesia Additional Past Anesthesia/Blood Transfusion Reaction / Comment(s): Anesthesia makes BP drop really low. Past Psychological History: Anxiety Smoking Status: Current every day smoker, Light tobacco smoker - Past Family History Mother Family Medical History: Diabetes Mellitus, Deep Vein Thrombosis (DVT) Additional Family Medical History / Comment(s): Mother passed a year ago. Father Family Medical History: Coronary Artery Disease (CAD), Hypertension General Exam Limitations: no limitations Head exam: Present: atraumatic, normocephalic, normal inspection Respiratory exam: Present: normal lung sounds bilaterally. Absent: respiratory distress, wheezes, rales, rhonchi, stridor Cardiovascular Exam: Present: regular rate, normal rhythm, normal heart sounds. Absent: systolic murmur, diastolic murmur, rubs, gallop, clicks GI/Abdominal exam: Present: soft, normal bowel sounds. Absent: distended, tenderness, guarding, rebound, rigid Back exam: Present: CVA tenderness (R), paraspinal tenderness (right lumbar). Absent: CVA tenderness (L) Neurological exam: Present: alert, oriented X3, CN II-XII intact Psychiatric exam: Present: normal affect, normal mood Skin exam: Present: warm, dry, intact, normal color. Absent: rash Course Vital Signs 04/15/22 09:34 Temperature 97.5 F L Pulse Rate 63 Respiratory 18 Rate Blood Pressure 103/72 O2 Sat by Pulse 99 Oximetry Medical Decision Making - Medical Decision Making This is a 52-year-old female presenting with right low back pain with radiation to the right flank. Thorough history and examination were performed. Vitals stable. Patient well-appearing. There is mild right CVA tenderness. Laboratory studies obtained and are relatively unremarkable. There is no leukocytosis. Creatinine elevated at 1.21, consistent with patient's recent baseline of chronic kidney disease. Urinalysis reveals infection. CT of the abdomen and pelvis without contrast obtained which reveals no acute abdominal/pelvic process and no evidence of obstructive uropathy or renal calculi. Results discussed with patient. With no fever, no leukocytosis, and decent kidney function, patient can manage symptoms at home. Patient will be discharged with Keflex for urinary tract infection. First dose given in the emergency department. Return parameters discussed. Patient to follow-up with primary care provider. Dr. Londono is my attending. - Lab Data Result diagrams: 04/15/22 11:50 04/15/22 11:50 Lab Results 04/15/22 04/15/22 04/15/22 Range/Units 11:50 11:50 12:45 WBC 7.3 (3.8-10.6) k/uL RBC 4.78 (3.80-5.40) m/uL Hgb 15.1 (11.4-16.0) gm/dL Hct 45.9 (34.0-46.0) % MCV 95.9 (80.0-100.0) fL MCH 31.6 (25.0-35.0) pg MCHC 33.0 (31.0-37.0) g/dL RDW 12.9 (11.5-15.5) % Plt Count 273 (150-450) k/uL MPV 7.6 Neutrophils % 37 % Lymphocytes % 51 % Monocytes % 4 % Eosinophils % 5 % Basophils % 1 % Neutrophils # 2.7 (1.3-7.7) k/uL Lymphocytes # 3.7 (1.0-4.8) k/uL Monocytes # 0.3 (0-1.0) k/uL Eosinophils # 0.4 (0-0.7) k/uL Basophils # 0.1 (0-0.2) k/uL Sodium 140 (137-145) mmol/L Potassium 4.1 (3.5-5.1) mmol/L Chloride 103 (98-107) mmol/L Carbon Dioxide 26 (22-30) mmol/L Anion Gap 11 mmol/L BUN 18 H (7-17) mg/dL Creatinine 1.21 H (0.52-1.04) mg/dL Est GFR (CKD-EPI)AfAm 60 (>60 ml/min/1.73 sqM) Est GFR (CKD-EPI)NonAf 52 (>60 ml/min/1.73 sqM) Glucose 103 H (74-99) mg/dL Calcium 9.5 (8.4-10.2) mg/dL Total Bilirubin 0.6 (0.2-1.3) mg/dL AST 46 H (14-36) U/L ALT 15 (4-34) U/L Alkaline Phosphatase 74 (38-126) U/L Total Protein 8.1 (6.3-8.2) g/dL Albumin 4.7 (3.5-5.0) g/dL Lipase 297 (23-300) U/L Urine Color Light Yellow Urine Appearance Cloudy H (Clear) Urine pH 6.0 (5.0-8.0) Ur Specific [place] 1.014 (1.001-1.035) Urine Protein Negative (Negative) Urine Glucose (UA) Negative (Negative) Urine Ketones Negative (Negative) Urine Blood Negative (Negative) Urine Nitrite Positive H (Negative) Urine Bilirubin Negative (Negative) Urine Urobilinogen <2.0 (<2.0) mg/dL Ur Leukocyte Esterase Moderate H (Negative) Urine RBC 2 (0-5) /hpf Urine WBC 4 (0-5) /hpf Ur Squamous Epith Cells 9 H (0-4) /hpf Urine Bacteria Occasional H (None) /hpf Urine Mucus Rare H (None) /hpf Disposition Clinical Impression: Right flank pain, Pain in right lumbar region of back, Urinary tract infection Disposition: HOME SELF-CARE Condition: Good Instructions (If sedation given, give patient instructions): Urinary Tract Infection in Women (ED) Additional Instructions: Take medication as directed. Take Tylenol or Motrin as needed for pain. Use of warm compress on the area may help symptoms. Follow-up with primary care provider in one to 2 days. Return to the emergency department if you experience new, concerning, or worsening symptoms. Prescriptions: Cephalexin [Keflex] 250 mg PO Q6HR 5 Days #20 cap Is patient prescribed a controlled substance at d/c from ED?: No Referrals: Jean Morales MD [Primary Care Provider] - 1-2 days Time of Disposition: 12:58
[2022-04-15] MEDS ORDERED: Acetaminophen-Codeine 300-30mg TAB PO STA (12:31)
[2022-04-15 13:12] LABS: Appearance,Urine Cloudy (Clear); Bacteria,Urine Occasional /hpf; Bilirubin,Urine Negative (Negative); Blood,Urine Negative (Negative); Color,Urine Light Yellow; Glucose,Urine (UA) Negative (Negative); Ketones,Urine Negative (Negative); Leukocyte Esterase,Urine Moderate (Negative); Mucus,Urine Rare /hpf; Nitrite,Urine Positive (Negative); Protein,Urine Negative (Negative); RBC,Urine 2 /hpf (0-5); Specific Gravity,Urine 1.014 (1.001-1.035); Squamous Epithelial Cell,Urine 9 /hpf (0-4); Urobilinogen,Urine <2.0 mg/dL (<2.0); WBC,Urine 4 /hpf (0-5)
[2022-04-15] MEDS ORDERED: CEPHALEXIN 250 MG CAP PO STA (13:13)
== END 2022-04-15 13:57 | disposition home or self-care (01) ==
LOC: EC 09:13
DX: N39.0 Urinary tract infection, site not specified (principal); F17.200 Nicotine dependence, unspecified, uncomplicated; J45.909 Unspecified asthma, uncomplicated; N18.30 Chronic kidney disease, stage 3 unspecified; E03.9 Hypothyroidism, unspecified; Z90.49 Acquired absence of other specified parts of digestive tract; Z91.030 Bee allergy status; Z88.7 Allergy status to serum and vaccine; Z88.5 Allergy status to narcotic agent; Z91.018 Allergy to other foods; Z79.899 Other long term (current) drug therapy; Z79.890 Hormone replacement therapy
CPT/HCPCS: 36415; 80053; 83690; 85025; 81001; 74176; 99284; 96374; 96375; 96361; J2405; J1885

== ENCOUNTER → 2022-05-05 | Outpatient (CLI) | payer OTHER ==
--- NOTE | 2022-05-05 15:51 | US ---
EXAMINATION TYPE: US kidneys/renal and bladder DATE OF EXAM: 05/05/2022 COMPARISON: CT CLINICAL HISTORY: N39.0 CKD 3. CKD EXAM MEASUREMENTS: Right Kidney: 8.6 x 3.9 x 3.7 cm Left Kidney: 9.2 x 4.4 x 4.4 cm Right Kidney: Small in size, no evidence of hydro Left Kidney: No evidence of hydro Bladder: wnl Bilateral Jets seen: No There is no evidence for hydronephrosis at this point in time. No nephrolithiasis is seen. No alysa s are identified. The urinary bladder is anechoic. Bilateral ureteral jets are seen. IMPRESSION: Slightly diminutive kidneys although no discrete abnormalities are appreciated.
[2022-05-05 20:47] LABS: Appearance,Urine Cloudy (Clear); Bilirubin,Urine Negative (Negative); Blood,Urine Negative (Negative); Color,Urine Yellow (Yellow); Ketones,Urine Negative (Negative); Nitrite,Urine Negative (Negative); Specific Gravity,Urine 1.014 (1.001-1.030); Urobilinogen,Urine 0.2 (0.2,1.0)
[2022-05-05 21:39] LABS: Bacteria,Urine 4+ /HPF (None Seen)
== END | disposition home or self-care (01) ==
LOC: RADUSWWP 04-14 14:50
PROVIDERS: ATTEND Internal Medicine
DX: N39.0 Urinary tract infection, site not specified (principal)
CPT/HCPCS: 76770; 81001; 87086

== ENCOUNTER 2022-05-06 11:54 | Emergency (ER) | payer OTHER ==
[2022-05-06 11:59] VITALS: TEMP 97.8
--- NOTE | 2022-05-06 12:56 | ED ---
Neuro HPI - General Chief Complaint: Neuro Symptoms/Deficit Stated Complaint: Lt side numbness,weakness Time Seen by Provider: 05/06/22 12:15 Source: patient, RN notes reviewed, old records reviewed Mode of arrival: ambulatory Limitations: no limitations - History of Present Illness Is the patient presenting with stroke symptoms?: No Initial Comments: 52-year-old female who states she's been feeling off for quite a while she does have osteoarthritis for which she is seen the pasteurizer helper this time. She was seen in the office for the first time had very low blood pressure had lab work done and was told today that her thyroid is very low. She denies any fevers chills sweats she has complained of left-sided numbness on-and-off for the past week or so. She is some decrease telepathist strength but this is secondary to pain s he states she is able move upper or lower extremities without difficulty. No overt headache. She states she just generally feels off no other current complaints or modifying factors. - Related Data Home Medications: Home Medications Medication Instructions Recorded Confirmed Multivitamins, Thera [Multivitamin 1 tab PO DAILY 04/07/21 05/06/22 (formulary)] Atorvastatin Calcium [Lipitor] 20 mg PO DAILY 10/07/21 05/06/22 Cyanocobalamin (Vitamin B-12) 500 mcg PO DAILY 10/07/21 05/06/22 [Vitamin B-12] Allergies/Adverse Reactions: Allergies Allergy/AdvReac Type Severity Reaction Status Date / Time bee venom protein (honey bee) Allergy Anaphylaxis Verified 05/06/22 14:02 influenza virus vaccine, Allergy Nausea & Verified 05/06/22 14:02 specific Vomiting & Diarrhea hydrocodone bitartrate AdvReac Confusion Verified 05/06/22 14:02 [From Vicodin] BLACK OLIVES Allergy Swelling Uncoded 05/06/22 14:02 Review of Systems ROS Statement: Those systems with pertinent positive or pertinent negative responses have been documented in the HPI. ROS Other: All systems not noted in ROS Statement are negative. General Exam - General Exam Comments Initial Comments: This is a well-developed well-nourished awake alert oriented 4 female Limitations: no limitations General appearance: alert, in no apparent distress Head exam: Present: atraumatic, normocephalic, normal inspection Eye exam: Present: normal appearance, PERRL, EOMI. Absent: scleral icterus, conjunctival injection, periorbital swelling ENT exam: Present: mucous membranes dry Neck exam: Present: normal inspection, full ROM, other (Stridor JVD or bruits). Absent: tenderness, meningismus, lymphadenopathy Respiratory exam: Present: normal lung sounds bilaterally. Absent: respiratory distress, wheezes, rales, rhonchi, stridor Cardiovascular Exam: Present: regular rate, normal rhythm, normal heart sounds. Absent: systolic murmur, diastolic murmur, rubs, gallop, clicks GI/Abdominal exam: Present: soft, normal bowel sounds. Absent: distended, tenderness, guarding, rebound, rigid, bruit, pulsatile mass Extremities exam: Present: normal inspection, full ROM, normal capillary refill. Absent: tenderness, pedal edema, joint swelling, calf tenderness Back exam: Present: normal inspection Neurological exam: Present: alert, oriented X3, CN II-XII intact Psychiatric exam: Present: normal affect, normal mood Skin exam: Present: warm, dry, intact, normal color. Absent: rash Stroke MDM - Lab Data Result diagrams: 05/06/22 12:48 05/06/22 12:48 Lab Results 05/06/22 05/06/22 05/06/22 Range/Units 12:48 12:48 12:48 WBC 6.6 (3.8-10.6) k/uL RBC 4.21 (3.80-5.40) m/uL Hgb 13.2 (11.4-16.0) gm/dL Hct 40.5 (34.0-46.0) % MCV 96.2 (80.0-100.0) fL MCH 31.3 (25.0-35.0) pg MCHC 32.5 (31.0-37.0) g/dL RDW 13.0 (11.5-15.5) % Plt Count 254 (150-450) k/uL MPV 7.6 Neutrophils % 42 % Lymphocytes % 45 % Monocytes % 5 % Eosinophils % 5 % Basophils % 2 % Neutrophils # 2.8 (1.3-7.7) k/uL Lymphocytes # 2.9 (1.0-4.8) k/uL Monocytes # 0.3 (0-1.0) k/uL Eosinophils # 0.3 (0-0.7) k/uL Basophils # 0.1 (0-0.2) k/uL D-Dimer 0.71 H (<0.60) mg/L FEU Sodium 138 (137-145) mmol/L Potassium 3.8 (3.5-5.1) mmol/L Chloride 103 (98-107) mmol/L Carbon Dioxide 23 (22-30) mmol/L Anion Gap 12 mmol/L BUN 12 (7-17) mg/dL Creatinine 1.17 H (0.52-1.04) mg/dL Est GFR (CKD-EPI)AfAm 62 (>60 ml/min/1.73 sqM) Est GFR (CKD-EPI)NonAf 54 (>60 ml/min/1.73 sqM) Glucose 97 (74-99) mg/dL Calcium 9.6 (8.4-10.2) mg/dL Magnesium 2.1 (1.6-2.3) mg/dL Total Bilirubin 0.5 (0.2-1.3) mg/dL AST 38 H (14-36) U/L ALT 14 (4-34) U/L Alkaline Phosphatase 69 (38-126) U/L Creatine Kinase 469 H (30-135) U/L Troponin I (0.000-0.034) ng/mL C-Reactive Protein 0.6 (<1.0) mg/dL Total Protein 7.4 (6.3-8.2) g/dL Albumin 4.5 (3.5-5.0) g/dL Lipase 350 H (23-300) U/L TSH >100.000 H (0.465-4.680) mIU/L Free T4 0.11 L (0.78-2.19) ng/dL 05/06/22 Range/Units 12:48 WBC (3.8-10.6) k/uL RBC (3.80-5.40) m/uL Hgb (11.4-16.0) gm/dL Hct (34.0-46.0) % MCV (80.0-100.0) fL MCH (25.0-35.0) pg MCHC (31.0-37.0) g/dL RDW (11.5-15.5) % Plt Count (150-450) k/uL MPV Neutrophils % % Lymphocytes % % Monocytes % % Eosinophils % % Basophils % % Neutrophils # (1.3-7.7) k/uL Lymphocytes # (1.0-4.8) k/uL Monocytes # (0-1.0) k/uL Eosinophils # (0-0.7) k/uL Basophils # (0-0.2) k/uL D-Dimer (<0.60) mg/L FEU Sodium (137-145) mmol/L Potassium (3.5-5.1) mmol/L Chloride (98-107) mmol/L Carbon Dioxide (22-30) mmol/L Anion Gap mmol/L BUN (7-17) mg/dL Creatinine (0.52-1.04) mg/dL Est GFR (CKD-EPI)AfAm (>60 ml/min/1.73 sqM) Est GFR (CKD-EPI)NonAf (>60 ml/min/1.73 sqM) Glucose (74-99) mg/dL Calcium (8.4-10.2) mg/dL Magnesium (1.6-2.3) mg/dL Total Bilirubin (0.2-1.3) mg/dL AST (14-36) U/L ALT (4-34) U/L Alkaline Phosphatase (38-126) U/L Creatine Kinase (30-135) U/L Troponin I <0.012 (0.000-0.034) ng/mL C-Reactive Protein (<1.0) mg/dL Total Protein (6.3-8.2) g/dL Albumin (3.5-5.0) g/dL Lipase (23-300) U/L TSH (0.465-4.680) mIU/L Free T4 (0.78-2.19) ng/dL - NIH Stroke Scale 1a. Level of Consciousness: (0) alert 1b. LOC Questions: (0) answers correctly 1c. LOC Commands: (0) performs tasks correctly 2. Best Gaze: (0) normal 3. Visual: (0) no visual loss 4. Facial Palsy: (0) normal symmetrical movement 5a. Motor Arm Left: (0) no drift 5b. Motor Arm Right: (0) no drift 6a. Motor Leg Left: (0) no drift 6b. Motor Leg Right: (0) no drift 7. Limb Ataxia: (0) absent 8. Sensory: (0) normal 9. Best Language: (0) no aphasia 10. Dysarthria: (0) normal 11. Extinction/Inattention: (0) no abnormality - Medical Decision Making I did have a long discussion with patient initially due to the findings I was going to suggest admission I did have a longer discussion with Dr. Morales the including review of old charting and imaging. It is tender the patient will not benefit from inpatient evaluation. Patient will be discharged after IV fluids and she is keep her follow-up outpatient with Dr. Jaimes. Additionally she is to increase her thyroid medication from 50-100 g per day. - Radiology Data Radiology results: report reviewed (Image reviewed as well as reports no acute findings seen at this time), image reviewed - EKG Data -: EKG Interpreted by Me EKG shows normal: sinus rhythm (Sinus rhythm a 67. Interval 201 QRS 93 QT/QTC 345/360 nonspecific T-wave configuration) Past Medical History Past Medical History: Asthma, Cancer, Chest Pain / Angina, Skin Disorder, Thyroid Disorder Additional Past Medical History / Comment(s): Ovarian cancer w/ surgery. hx of anorexia as a teenager, Pleurisy, Kidney stones occ, Migraines since age 9, had head injury. Hypoglycemic. Lt hand fingernails coming off. Hypothyroid. History of Any Multi-Drug Resistant Organisms: None Reported Past Surgical History: Cholecystectomy, Hysterectomy, Orthopedic Surgery Additional Past Surgical History / Comment(s): Lt oophorectomy. Rt KNEE ARTHROSCOPY Past Anesthesia/Blood Transfusion Reactions: Previous Problems w/ Anesthesia Additional Past Anesthesia/Blood Transfusion Reaction / Comment(s): Anesthesia makes BP drop really low. Past Psychological History: Anxiety Smoking Status: Current every day smoker, Light tobacco smoker Past Alcohol Use History: None Reported Past Drug Use History: None Reported - Past Family History Mother Family Medical History: Diabetes Mellitus, Deep Vein Thrombosis (DVT) Additional Family Medical History / Comment(s): Mother passed a year ago. Father Family Medical History: Coronary Artery Disease (CAD), Hypertension Course Vital Signs 05/06/22 05/06/22 05/06/22 11:55 11:56 13:00 Temperature 97.8 F Pulse Rate 65 Respiratory 20 20 14 Rate Blood Pressure 109/67 O2 Sat by Pulse 98 Oximetry 05/06/22 05/06/22 14:00 15:00 Temperature Pulse Rate 60 Respiratory 18 Rate Blood Pressure 108/85 99/89 O2 Sat by Pulse 98 Oximetry Disposition Clinical Impression: Hypothyroidism, Dehydration, Paresthesia Disposition: HOME SELF-CARE Condition: Good Instructions (If sedation given, give patient instructions): Hypothyroidism (ED), Dehydration (ED) Additional Instructions: Follow-up with Dr. Andrew gómez and with Dr. Jaimes as planned Is patient prescribed a controlled substance at d/c from ED?: No Referrals: Jean Morales MD [Primary Care Provider] - 1-2 days Decision Date: 05/06/22 Decision Time: 15:38
--- NOTE | 2022-05-06 13:13 | XR ---
EXAMINATION TYPE: XR chest 2V DATE OF EXAM: 05/06/2022 COMPARISON: Chest x-ray 04/07/2021 HISTORY: Weakness in the left side TECHNIQUE: Frontal and lateral views of the chest are obtained. FINDINGS: There is no focal air space opacity, pleural effusion, or pneumothorax seen. The cardiac silhouette size is within normal limits. There are overlying leads. Surgical clips are present in the right upper quadrant. The osseous structures are intact. IMPRESSION: No acute cardiopulmonary process.
[2022-05-06 13:14] LABS: Basophils # (A) 0.1 k/uL (0-0.2); Basophils % (A) 2 %; Eosinophils # (A) 0.3 k/uL (0-0.7); Eosinophils % (A) 5 %; HCT 40.5 % (34.0-46.0); HGB 13.2 gm/dL (11.4-16.0); Lymphocytes # (A) 2.9 k/uL (1.0-4.8); Lymphocytes % (A) 45 %; MCH 31.3 pg (25.0-35.0); MCHC 32.5 g/dL (31.0-37.0); MCV 96.2 fL (80.0-100.0); Mean Platelet Volume 7.6; Monocytes # (A) 0.3 k/uL (0-1.0); Monocytes % (A) 5 %; Neutrophils # (A) 2.8 k/uL (1.3-7.7); Neutrophils % (A) 42 %; Platelet Count 254 k/uL (150-450); RBC 4.21 m/uL (3.80-5.40); WBC 6.6 k/uL (3.8-10.6)
[2022-05-06 13:30] LABS: ALT 14 U/L (4-34); AST 38 U/L (14-36); African American GFR (CKD) 62 (>60 ml/min/1.73 sqM); Albumin 4.5 g/dL (3.5-5.0); Alkaline Phosphatase 69 U/L (38-126); Anion Gap 12 mmol/L; Blood Urea Nitrogen 12 mg/dL (7-17); C Reactive Protein 0.6 mg/dL (<1.0); Calcium 9.6 mg/dL (8.4-10.2); Carbon Dioxide 23 mmol/L (22-30); Chloride 103 mmol/L (98-107); Creatine Kinase 469 U/L (30-135); Glucose 97 mg/dL (74-99); Lipase 350 U/L (23-300); Magnesium 2.1 mg/dL (1.6-2.3); Non-African American GFR(CKD) 54 (>60 ml/min/1.73 sqM); Potassium 3.8 mmol/L (3.5-5.1); Sodium 138 mmol/L (137-145); Total Bilirubin 0.5 mg/dL (0.2-1.3); Total Protein 7.4 g/dL (6.3-8.2)
--- NOTE | 2022-05-06 13:49 | CT ---
EXAMINATION TYPE: CT brain wo con CT DLP: 1098.4 mGycm, Automated exposure control for dose reduction was used. DATE OF EXAM: 05/06/2022 1:41 PM COMPARISON: CT brain 03/11/2022.. CLINICAL INDICATION:Female, 52 years old with history of Neuro deficit, stroke suspected, TECHNIQUE: Brain: Axial CT images of the brain were obtained with coronal and sagittal reformats created and rev iewed. Contrast used: None. Oral contrast used: None. FINDINGS: Brain: Extra-axial spaces: No abnormal extra-axial fluid collections. Ventricular system: Within normal limits Cerebral parenchyma: Suspected right basal ganglia remote injury. No acute intraparenchymal hemorrhag e or mass effect. The head-white junction is well differentiated. Cerebellum: Unremarkable. Mass effect: No evidence of midline shift. Intracranial vasculature: unremarkable Soft tissues: Normal. Calvarium/osseous structures: No depressed skull fracture. Paranasal sinuses and mastoid air cells: Moderate scattered paranasal sinus disease. Visualized orbits: Orbital contents are intact. IMPRESSION: 1. No acute intracranial process. 2. Remote right basal ganglia lacunar injury. 3. Moderate paranasal sinus disease.
[2022-05-06 14:36] LABS: T4, Free (Free Thyroxine) 0.11 ng/dL (0.78-2.19)
[2022-05-06] MEDS ORDERED: KETOROLAC 15 MG/ML 1 ML VIAL IVP STA (14:51)
[2022-05-06] MEDS ORDERED: SODIUM CHLORIDE 0.9% 1,000 ML IV STA ×2 (14:51)
[2022-05-06 15:02] VITALS: BP 99/89; PULSE 60; RESP 18
== END 2022-05-06 16:00 | disposition home or self-care (01) ==
LOC: EC 11:54
DX: E03.9 Hypothyroidism, unspecified (principal); E86.0 Dehydration; R20.2 Paresthesia of skin; R53.1 Weakness; F17.200 Nicotine dependence, unspecified, uncomplicated; J45.909 Unspecified asthma, uncomplicated; Z91.040 Latex allergy status; Z91.030 Bee allergy status; Z88.7 Allergy status to serum and vaccine; Z88.5 Allergy status to narcotic agent; Z91.018 Allergy to other foods
CPT/HCPCS: 93005; 85379; 84439; 80053; 84443; 82550; 83690; 83735; 84484; 85025; 86140; 71046; 70450; 99285; 96374; 96361; J1885; 36415

== ENCOUNTER → 2022-05-06 | Outpatient (CLI) | payer OTHER ==
--- NOTE | 2022-05-06 17:30 | CA ---
Transthoracic Echo Report Name: Yodit Del Real Age: 52 Gender: F : 1970 Exam Date: 05/06/2022 11:13 Exam Location: [facility] Ht (in): 61 Wt (lb): 151 Ordering Physician: Jean Morales MD Attending/Referring Phys: Account Solutions Analyst Meeta Da Silva RDCS Procedure CPT: Indications: I42.9 cardiomyopathy Cardiac Hx: Technical Quality: Good Contrast 1: Total Dose (mL): Contrast 2: Total Dose (mL): MEASUREMENTS (Male / Female) Normal Values 2D ECHO LV Diastolic Diameter PLAX 4.0 cm 4.2 - 5.9 / 3.9 - 5.3 cm LV Systolic Diameter PLAX 2.8 cm IVS Diastolic Thickness 1.0 cm 0.6 - 1.0 / 0.6 - 0.9 cm LVPW Diastolic Thickness 0.9 cm 0.6 - 1.0 / 0.6 - 0.9 cm LV Relative Wall Thickness 0.5 RV Internal Dim ED PLAX 2.6 cm LA Systolic Diameter LX 3.0 cm 3.0 - 4.0 / 2.7 - 3.8 cm LA Volume 31.7 cm??? 18 - 58 / 22 - 52 cm??? M-MODE Aortic Root Diameter MM 3.0 cm MV E Point Septal Separation 0.6 cm AV Cusp Separation MM 1.8 cm DOPPLER AV Peak Velocity 112.0 cm/s AV Peak Gradient 5.0 mmHg MV Area PHT 4.3 cm??? Mitral E Point Velocity 53.5 cm/s Mitral A Point Velocity 45.9 cm/s Mitral E to A Ratio 1.2 MV Deceleration Time 178.5 ms MV E' Velocity 6.9 cm/s Mitral E to MV E' Ratio 7.8 TR Peak Velocity 193.1 cm/s TR Peak Gradient 14.9 mmHg Right Ventricular Systolic Press 19.9 mmHg FINDINGS Left Ventricle Left ventricular ejection fraction is estimated at 60-65 %. Left ventricular cavity size normal. Left ventricular wall thickness normal. Right Ventricle Normal right ventricular size and function. Right ventricular systolic pressure within normal limits. Right Atrium Normal right atrial size. Left Atrium Normal left atrial size. No evidence for an atrial septal defect. Mitral Valve Structurally normal mitral valve. Trace to mild mitral regurgitation. Aortic Valve Trileaflet aortic valve. Tricuspid Valve Mild tricuspid regurgitation. Pulmonic Valve Trace pulmonic regurgitation. Pericardium Normal pericardium. No pericardial effusion. Aorta Normal size aortic root and proximal ascending aorta. CONCLUSIONS Normal LV systolic function Previewed by: Dr. pJ Yo MD (Electronically Signed) Final Date: 06 May 2022 17:29
== END | disposition home or self-care (01) ==
LOC: RADECHMAIN 11:02
PROVIDERS: ATTEND Internal Medicine
DX: I42.9 Cardiomyopathy, unspecified (principal); I95.9 Hypotension, unspecified
CPT/HCPCS: 93306

== ENCOUNTER 2022-10-26 18:55 | Emergency (ER) | payer OTHER ==
[2022-10-26 19:05] VITALS: RESP 18; TEMP 97.8
--- NOTE | 2022-10-26 20:37 | ED ---
General Adult HPI - General Source: patient Mode of arrival: ambulatory Limitations: no limitations <Sherry Romero - Last Filed: 10/26/22 20:38> <Kevin Ahn - Last Filed: 10/27/22 04:59> - General Chief complaint: Neuro Symptoms/Deficit Stated complaint: Lt arm numbness/back pain Time Seen by Provider: 10/26/22 20:35 - History of Present Illness Initial comments: Patient is a 52-year-old female who presents to the emergency department for multiple complaints. Patient reports lightheadedness throughout the day and left arm numbness. No focal deficit or tingling. No syncope, chest pain, shortness of breath, sweating. Patient also reports lower back pain on both sides and nausea. Denies injury. Patient has headache and malaise. No vomiting, burning with urination, blood in the urine. (Sherry Romero) This is a 52-year-old female with a past medical history including hyp othyroidism presented to the emergency department for a headache, lightheadedness and chest pain. The patient stated that she had left arm pain without numbness throughout the day today. The patient stated that she woke up this morning and stood up and had lightheadedness but she stated that the l ightheadedness continued throughout the day associated with generalized body aches and feeling "lousy." The patient denied any other acute pain or complaints at this time as well as any sick contacts. The patient was resting in bed with slight photophobia secondary to her headache. The patient did state that the symptoms were similar to her previous migraine headache symptoms. (Kevin Almanzar) - Related Data Home Medications Medication Instructions Recorded Confirmed Multivitamins, Thera [Multivitamin 1 tab PO DAILY 04/07/21 05/06/22 (formulary)] Atorvastatin Calcium [Lipitor] 20 mg PO DAILY 10/07/21 05/06/22 Cyanocobalamin (Vitamin B-12) 500 mcg PO DAILY 10/07/21 05/06/22 [Vitamin B-12] Allergies Allergy/AdvReac Type Severity Reaction Status Date / Time bee venom protein (honey bee) Allergy Anaphylaxis Verified 05/06/22 14:02 influenza virus vaccine, Allergy Nausea & Verified 05/06/22 14:02 specific Vomiting & Diarrhea hydrocodone bitartrate AdvReac Confusion Verified 05/06/22 14:02 [From Vicodin] BLACK OLIVES Allergy Swelling Uncoded 05/06/22 14:02 Review of Systems ROS Other: All systems not noted in ROS Statement are negative. <Sherry Romero - Last Filed: 10/26/22 20:38> ROS Other: All systems not noted in ROS Statement are negative. <Kevin Ahn - Last Filed: 10/27/22 04:59> ROS Statement: Those systems with pertinent positive or pertinent negative responses have been documented in the HPI. Past Medical History Past Medical History: Asthma, Cancer, Chest Pain / Angina, Skin Disorder, Thyroid Disorder Additional Past Medical History / Comment(s): Ovarian cancer w/ surgery. hx of anorexia as a teenager, Pleurisy, Kidney stones occ, Migraines since age 9, had head injury. Hypoglycemic. Lt hand fingernails coming off. Hypothyroid. History of Any Multi-Drug Resistant Organisms: None Reported Past Surgical History: Cholecystectomy, Hysterectomy, Orthopedic Surgery Additional Past Surgical History / Comment(s): Lt oophorectomy. Rt KNEE ARTHROSCOPY Past Anesthesia/Blood Transfusion Reactions: Previous Problems w/ Anesthesia Additional Past Anesthesia/Blood Transfusion Reaction / Comment(s): Anesthesia makes BP drop really low. Past Psychological History: Anxiety Smoking Status: Current every day smoker, Light tobacco smoker Past Alcohol Use History: None Reported Past Drug Use History: None Reported - Past Family History Mother Family Medical History: Diabetes Mellitus, Deep Vein Thrombosis (DVT) Additional Family Medical History / Comment(s): Mother passed a year ago. Father Family Medical History: Coronary Artery Disease (CAD), Hypertension <Sherry Romero - Last Filed: 10/26/22 20:38> General Exam Limitations: no limitations <Sherry Romero - Last Filed: 10/26/22 20:38> Limitations: no limitations General appearance: alert, in no apparent distress Head exam: Present: atraumatic, normocephalic, normal inspection, other (Tenderness noted all over the scalp without any focal tenderness) Eye exam: Present: normal appearance, PERRL Pupils: Present: normal accommodation ENT exam: Present: normal exam, normal oropharynx, mucous membranes moist Neck exam: Present: normal inspection, full ROM Respiratory exam: Present: normal lung sounds bilaterally, chest wall tenderness (Reproducible chest wall tenderness noted over the bilateral anterior chest wall) Cardiovascular Exam: Present: regular rate, normal rhythm, normal heart sounds GI/Abdominal exam: Present: soft, normal bowel sounds Extremities exam: Present: normal inspection, full ROM Back exam: Present: normal inspection, full ROM Neurological exam: Present: alert, oriented X3, CN II-XII intact Psychiatric exam: Present: normal affect, normal mood Skin exam: Present: warm, dry <Kevin Ahn - Last Filed: 10/27/22 04:59> Course Vital Signs 10/26/22 10/27/22 19:02 03:12 Temperature 97.8 F Pulse Rate 78 60 Respiratory 18 18 Rate Blood Pressure 107/74 115/82 O2 Sat by Pulse 100 96 Oximetry EKG Findings - EKG Comments: EKG Findings:: An EKG was obtained and was interpreted by myself showing a rate of 59, OH interval 175, QRS duration of 89 and QTC of 404. This EKG showed a sinus bradycardia with no ST segment elevation or depression noted. <Kevin Ahn - Last Filed: 10/27/22 04:59> Medical Decision Making - Lab Data Result diagrams: 10/27/22 00:13 10/27/22 00:13 <Kevin Ahn - Last Filed: 10/27/22 04:59> - Medical Decision Making Was pt. sent in by a medical professional or institution (SANDRA Sandoval, TEACHING ASSOCIATE, urgent care, hospital, or jail...) When possible be specific @ -No Did you speak to anyone other than the patient for history (EMS, parent, family, police, friend...)? What history was obtained from this source @ -No Did you review nursing and triage notes (agree or disagree)? Why? @ -I reviewed and agree with nursing and triage notes Were old charts reviewed (outside hosp., previous admission, EMS record, old EKG, old radiological studies, urgent care reports/EKG's, jail records)? Report findings @ -No old charts were reviewed Differential Diagnosis (chest pain, altered mental status, abdominal pain women, abdominal pain men, vaginal bleeding, weakness, fever, dyspnea, syncope, headache, dizziness, GI bleed, back pain, seizure, CVA, palpatations, mental health)? @ -Migraine headache, COVID-19, dehydration EKG interpreted by me (3pts min.). @ -As above X-rays interpreted by me (1pt min.). @ -None done CT interpreted by me (1pt min.). @ -CT head was obtained and was interpreted by myself showing no acute process. U/S interpreted by me (1pt. min.). @ -None done What testing was considered but not performed or refused? (CT, X-rays, U/S, labs)? Why? @ -None What meds were considered but not given or refused? Why? @ -None Did you discuss the management of the patient with other professionals (professionals i.e. , PA, TEACHING ASSOCIATE, lab, RT, psych nurse, social media job titles, bologna lacer, teacher, electronic intelligence officer, window caser)? Give summary @ -No Was smoking cessation discussed for >3mins.? @ -Yes Was critical care preformed (if so, how long)? @ -No Were there social determinants of health that impacted care today? How? (Homelessness, low income, unemployed, alcoholism, drug addiction, transportation, low edu. Level, literacy, decrease access to med. care, longterm, rehab)? @ -No Was there de-escalation of care discussed even if they declined (Discuss DNR or withdrawal of care, Hospice)? DNR status @ -No What co-morbidities impacted this encounter? (DM, HTN, Smoking, COPD, CAD, Cancer, CVA, ARF, Chemo, Hep., AIDS, mental health diagnosis, sleep apnea, morbid obesity)? @ -Migraine headaches, hypothyroidism Was patient admitted / discharged? Hospital course, mention meds given and route, prescriptions, significant lab abnormalities, going to OR and other pert inent info. @ -The patient was seen and evaluated emergency department. On physical exam, the patient was resting in bed without any acute distress. Vital signs admission were stable. The patient's overall complaints related to her migraine headaches and a head CT and laboratory workup was obtained in triage. All imaging and workup was negative. The patient did receive a headache cocktail and reevaluation stated that her pain was improved however was not completed be gone. The patient was stable for discharge and just prior to discharge, requested a dose of Dilaudid. The patient stated "they gave me this last time and it really helped." I explained to her that I would not be giving this medication to her and did offer a [place] tablet instead. She agreed to this and was told to continue to monitor symptoms and to report back to the emergency department if they became acutely worse. The patient was agreeable to this and all of her questions were answered. The patient was discharged home in stable condition with her significant other. Undiagnosed new problem with uncertain prognosis? @ -No Drug Therapy requiring intensive monitoring for toxicity (Heparin, Nitro, Insulin, Cardizem)? @ -No Were any procedures done? @ -No Diagnosis/symptom? @ -Headache, NOS Acute, or Chronic, or Acute on Chronic? @ -Acute on chronic Uncomplicated (without systemic symptoms) or Complicated (systemic symptoms)? @ -Uncomplicated Side effects of treatment? @ -No Exacerbation, Progression, or Severe Exacerbation? @ -No Poses a threat to life or bodily function? How? (Chest pain, USA, MS, pneumonia, PE, COPD, DKA, ARF, appy, cholecystitis, CVA, Diverticulitis, Homicidal, Suicidal, threat to staff... and all critical care pts) @ -No (Kevin Ahn) - Lab Data Lab Results 10/27/22 10/27/22 10/27/22 Range/Units 00:13 00:13 00:13 WBC 8.8 (3.8-10.6) k/uL RBC 4.70 (3.80-5.40) m/uL Hgb 14.7 (11.4-16.0) gm/dL Hct 41.5 (34.0-46.0) % MCV 88.4 (80.0-100.0) fL MCH 31.4 (25.0-35.0) pg MCHC 35.5 (31.0-37.0) g/dL RDW 14.2 (11.5-15.5) % Plt Count 282 (150-450) k/uL MPV 8.2 Neutrophils % 25 % Lymphocytes % 61 % Monocytes % 5 % Eosinophils % 5 % Basophils % 1 % Neutrophils # 2.2 (1.3-7.7) k/uL Lymphocytes # 5.4 H (1.0-4.8) k/uL Monocytes # 0.5 (0-1.0) k/uL Eosinophils # 0.4 (0-0.7) k/uL Basophils # 0.1 (0-0.2) k/uL Manual Slide Review Performed PT 10.7 (9.0-12.0) sec INR 1.0 (<1.2) APTT 24.0 (22.0-30.0) sec Sodium 137 (137-145) mmol/L Potassium 4.4 (3.5-5.1) mmol/L Chloride 109 H (98-107) mmol/L Carbon Dioxide 21 L (22-30) mmol/L Anion Gap 7 mmol/L BUN 13 (7-17) mg/dL Creatinine 0.80 (0.52-1.04) mg/dL Est GFR (CKD-EPI)AfAm >90 (>60 ml/min/1.73 sqM) Est GFR (CKD-EPI)NonAf 86 (>60 ml/min/1.73 sqM) Glucose 98 (74-99) mg/dL Calcium 9.7 (8.4-10.2) mg/dL Total Bilirubin 0.5 (0.2-1.3) mg/dL AST 29 (14-36) U/L ALT 18 (4-34) U/L Alkaline Phosphatase 79 (38-126) U/L Troponin I (0.000-0.034) ng/mL Total Protein 7.2 (6.3-8.2) g/dL Albumin 4.2 (3.5-5.0) g/dL Lipase 483 H (23-300) U/L Urine Color Urine Appearance (Clear) Urine pH (5.0-8.0) Ur Specific [place] (1.001-1.035) Urine Protein (Negative) Urine Glucose (UA) (Negative) Urine Ketones (Negative) Urine Blood (Negative) Urine Nitrite (Negative) Urine Bilirubin (Negative) Urine Urobilinogen (<2.0) mg/dL Ur Leukocyte Esterase (Negative) Urine RBC (0-5) /hpf Urine WBC (0-5) /hpf Urine WBC Clumps (None) /hpf Ur Squamous Epith Cells (0-4) /hpf Amorphous Sediment (None) /hpf Urine Bacteria (None) /hpf Hyaline Casts (0-2) /lpf Urine Mucus (None) /hpf Influenza Type A (PCR) (Not Detectd) Influenza Type B (PCR) (Not Detectd) RSV (PCR) (Not Detectd) SARS-CoV-2 (PCR) (Not Detectd) 10/27/22 10/27/22 10/27/22 Range/Units 00:13 00:13 00:47 WBC (3.8-10.6) k/uL RBC (3.80-5.40) m/uL Hgb (11.4-16.0) gm/dL Hct (34.0-46.0) % MCV (80.0-100.0) fL MCH (25.0-35.0) pg MCHC (31.0-37.0) g/dL RDW (11.5-15.5) % Plt Count (150-450) k/uL MPV Neutrophils % % Lymphocytes % % Monocytes % % Eosinophils % % Basophils % % Neutrophils # (1.3-7.7) k/uL Lymphocytes # (1.0-4.8) k/uL Monocytes # (0-1.0) k/uL Eosinophils # (0-0.7) k/uL Basophils # (0-0.2) k/uL Manual Slide Review PT (9.0-12.0) sec INR (<1.2) APTT (22.0-30.0) sec Sodium (137-145) mmol/L Potassium (3.5-5.1) mmol/L Chloride (98-107) mmol/L Carbon Dioxide (22-30) mmol/L Anion Gap mmol/L BUN (7-17) mg/dL Creatinine (0.52-1.04) mg/dL Est GFR (CKD-EPI)AfAm (>60 ml/min/1.73 sqM) Est GFR (CKD-EPI)NonAf (>60 ml/min/1.73 sqM) Glucose (74-99) mg/dL Calcium (8.4-10.2) mg/dL Total Bilirubin (0.2-1.3) mg/dL AST (14-36) U/L ALT (4-34) U/L Alkaline Phosphatase (38-126) U/L Troponin I <0.012 (0.000-0.034) ng/mL Total Protein (6.3-8.2) g/dL Albumin (3.5-5.0) g/dL Lipase (23-300) U/L Urine Color Yellow Urine Appearance Cloudy H (Clear) Urine pH 5.5 (5.0-8.0) Ur Specific [place] 1.022 (1.001-1.035) Urine Protein Negative (Negative) Urine Glucose (UA) Negative (Negative) Urine Ketones Negative (Negative) Urine Blood Negative (Negative) Urine Nitrite Negative (Negative) Urine Bilirubin Negative (Negative) Urine Urobilinogen <2.0 (<2.0) mg/dL Ur Leukocyte Esterase Small H (Negative) Urine RBC 1 (0-5) /hpf Urine WBC 12 H (0-5) /hpf Urine WBC Clumps Rare H (None) /hpf Ur Squamous Epith Cells 6 H (0-4) /hpf Amorphous Sediment Rare H (None) /hpf Urine Bacteria Occasional H (None) /hpf Hyaline Casts 1 (0-2) /lpf Urine Mucus Rare H (None) /hpf Influenza Type A (PCR) Not Detected (Not Detectd) Influenza Type B (PCR) Not Detected (Not Detectd) RSV (PCR) Not Detected (Not Detectd) SARS-CoV-2 (PCR) Not Detected (Not Detectd) Disposition <Sherry Romero - Last Filed: 10/26/22 20:38> Is patient prescribed a controlled substance at d/c from ED?: No Time of Disposition: 03:45 <Kevin Ahn - Last Filed: 10/27/22 04:59> Clinical Impression: Headache Disposition: HOME SELF-CARE Condition: Stable Referrals: Jean Morales MD [Primary Care Provider] - 1-2 days
--- NOTE | 2022-10-26 21:02 | CT ---
EXAMINATION TYPE: CT brain wo con DATE OF EXAM: 10/26/2022 COMPARISON: 05/06/2022 HISTORY: headache and dizziness. CT DLP: 1111.4 mGycm Automated exposure control for dose reduction was used. Images obtained of the brain with no contrast. Ventricles have normal size. There is no mass effect or midline shift. No sign of intracranial hemorr lupillo. The calvarium is intact. IMPRESSION: Negative unenhanced head CT scan. No change.
[2022-10-26] MEDS ORDERED: DEXAMETHASONE SOD PHOSPHATE 10 MG/ML 1 ML VIAL IVP STA (23:43)
[2022-10-26] MEDS ORDERED: diphenhydrAMINE 50 MG/ML 1 ML VIAL IVP STA (23:43)
[2022-10-26] MEDS ORDERED: SODIUM CHLORIDE 0.9% 1,000 ML IV ONE (23:43)
[2022-10-26] MEDS ORDERED: PROCHLORPERAZINE INJ 10 MG/2 ML VIAL IVP STA (23:43)
[2022-10-26] MEDS ORDERED: KETOROLAC 15 MG/ML 1 ML VIAL IVP STA (23:43)
[2022-10-27 01:16] LABS: Basophils # (A) 0.1 k/uL (0-0.2); Basophils % (A) 1 %; Eosinophils # (A) 0.4 k/uL (0-0.7); Eosinophils % (A) 5 %; HCT 41.5 % (34.0-46.0); HGB 14.7 gm/dL (11.4-16.0); Lymphocytes # (A) 5.4 k/uL (1.0-4.8); Lymphocytes % (A) 61 %; MCH 31.4 pg (25.0-35.0); MCHC 35.5 g/dL (31.0-37.0); MCV 88.4 fL (80.0-100.0); Mean Platelet Volume 8.2; Monocytes # (A) 0.5 k/uL (0-1.0); Monocytes % (A) 5 %; Neutrophils # (A) 2.2 k/uL (1.3-7.7); Neutrophils % (A) 25 %; Platelet Count 282 k/uL (150-450); RDW 14.2 % (11.5-15.5); WBC 8.8 k/uL (3.8-10.6)
[2022-10-27 01:18] LABS: ALT 18 U/L (4-34); AST 29 U/L (14-36); African American GFR (CKD) >90 (>60 ml/min/1.73 sqM); Albumin 4.2 g/dL (3.5-5.0); Alkaline Phosphatase 79 U/L (38-126); Anion Gap 7 mmol/L; Blood Urea Nitrogen 13 mg/dL (7-17); Calcium 9.7 mg/dL (8.4-10.2); Carbon Dioxide 21 mmol/L (22-30); Chloride 109 mmol/L (98-107); Glucose 98 mg/dL (74-99); Lipase 483 U/L (23-300); Non-African American GFR(CKD) 86 (>60 ml/min/1.73 sqM); Potassium 4.4 mmol/L (3.5-5.1); Sodium 137 mmol/L (137-145); Total Bilirubin 0.5 mg/dL (0.2-1.3); Total Protein 7.2 g/dL (6.3-8.2)
[2022-10-27 01:44] LABS: Prothrombin Time 10.7 sec (9.0-12.0)
[2022-10-27 01:45] LABS: Amorphous Sediment,Urine Rare /hpf; Appearance,Urine Cloudy (Clear); Bacteria,Urine Occasional /hpf; Bilirubin,Urine Negative (Negative); Blood,Urine Negative (Negative); Color,Urine Yellow; Glucose,Urine (UA) Negative (Negative); Hyaline Casts,Urine 1 /lpf (0-2); Ketones,Urine Negative (Negative); Leukocyte Esterase,Urine Small (Negative); Mucus,Urine Rare /hpf; Nitrite,Urine Negative (Negative); PH, Urine 5.5 (5.0-8.0); Protein,Urine Negative (Negative); RBC,Urine 1 /hpf (0-5); Specific Gravity,Urine 1.022 (1.001-1.035); Squamous Epithelial Cell,Urine 6 /hpf (0-4); Urobilinogen,Urine <2.0 mg/dL (<2.0); WBC,Urine 12 /hpf (0-5)
[2022-10-27 03:13] VITALS: BP 115/82; PULSE 60
[2022-10-27] MEDS ORDERED: HYDROcodone/APAP 5-325MG 1 EACH TAB PO STA (03:51)
== END 2022-10-27 04:05 | disposition home or self-care (01) ==
LOC: EC 18:55
DX: R51.9 Headache, unspecified (principal); F17.210 Nicotine dependence, cigarettes, uncomplicated; Z90.49 Acquired absence of other specified parts of digestive tract; Z20.822 Contact with and (suspected) exposure to COVID-19; Z88.7 Allergy status to serum and vaccine; Z88.5 Allergy status to narcotic agent; Z91.018 Allergy to other foods; Z91.030 Bee allergy status; Z90.721 Acquired absence of ovaries, unilateral; Z87.442 Personal history of urinary calculi
CPT/HCPCS: 36415; 93005; 80053; 83690; 84484; 85025; 85610; 85730; 81001; 87086; 87636; 70450; 99284; 99406; 96374; 96375; 96361; J1200; J0780; J1100; J1885

== ENCOUNTER 2023-08-15 09:21 | Emergency (ER) | payer OTHER ==
[2023-08-15 09:41] VITALS: RESP 18; TEMP 99
[2023-08-15] MEDS ORDERED: ACETAMINOPHEN TAB 500 MG TAB PO STA (09:48)
--- NOTE | 2023-08-15 09:51 | ED ---
General Adult HPI - General Chief complaint: Upper Respiratory Infection Stated complaint: upper resp Time Seen by Provider: 08/15/23 09:40 Source: patient, RN notes reviewed Mode of arrival: ambulatory Limitations: no limitations - History of Present Illness Initial comments: Patient is a pleasant 53-year-old female not feeling well for the past 2 days. Patient does have history of chronic headaches. Patient woke with a headache 2 days ago. Patient did take her medications as she normally would for her headache. Patient then developed fever. Patient took Excedrin this morning however vomited. Patient has been drinking more however not urinating as much. Patient does have chest and nasal congestion. Patient is been fatigued. - Related Data Home Medications Medication Instructions Recorded Confirmed Multivitamins, Thera [Multivitamin 1 tab PO DAILY 04/07/21 05/06/22 (formulary)] Atorvastatin Calcium [Lipitor] 20 mg PO DAILY 10/07/21 05/06/22 Cyanocobalamin (Vitamin B-12) 500 mcg PO DAILY 10/07/21 05/06/22 [Vitamin B-12] Previous Rx's Medication Instructions Recorded Nirmatrelvir/Ritonavir [Paxlovid 3 each PO BID #30 each 08/15/23 300-100 mg Pack (Eua)] Allergies Allergy/AdvReac Type Severity Reaction Status Date / Time bee venom protein (honey bee) Allergy Anaphylaxis Verified 08/15/23 09:39 influenza virus vaccine, Allergy Nausea & Verified 08/15/23 09:39 specific Vomiting & Diarrhea hydrocodone bitartrate AdvReac Confusion Verified 08/15/23 09:39 [From Vicodin] BLACK OLIVES Allergy Swelling Uncoded 08/15/23 09:39 Review of Systems ROS Statement: Those systems with pertinent positive or pertinent negative responses have been documented in the HPI. ROS Other: All systems not noted in ROS Statement are negative. Constitutional: Reports: as per HPI, fever Eyes: Denies: eye pain ENT: Reports: congestion. Denies: ear pain Respiratory: Reports: cough Cardiovascular: Denies: chest pain Endocrine: Reports: fatigue Gastrointestinal: Reports: vomiting. Denies: abdominal pain Neurological: Reports: as per HPI. Denies: weakness, confusion Past Medical History Past Medical History: Asthma, Cancer, Chest Pain / Angina, Skin Disorder, Thyroid Disorder Additional Past Medical History / Comment(s): Ovarian cancer w/ surgery. hx of anorexia as a teenager, Pleurisy, Kidney stones occ, Migraines since age 9, had head injury. Hypoglycemic. Lt hand fingernails coming off. Hypothyroid. History of Any Multi-Drug Resistant Organisms: None Reported Past Surgical History: Cholecystectomy, Hysterectomy, Orthopedic Surgery Additional Past Surgical History / Comment(s): Lt oophorectomy. Rt KNEE ARTHROSCOPY Past Anesthesia/Blood Transfusion Reactions: Previous Problems w/ Anesthesia Additional Past Anesthesia/Blood Transfusion Reaction / Comment(s): Anesthesia makes BP drop really low. Past Psychological History: Anxiety Smoking Status: Current every day smoker, Light tobacco smoker Past Alcohol Use History: None Reported Past Drug Use History: None Reported - Past Family History Mother Family Medical History: Diabetes Mellitus, Deep Vein Thrombosis (DVT) Additional Family Medical History / Comment(s): Mother passed a year ago. Father Family Medical History: Coronary Artery Disease (CAD), Hypertension General Exam Limitations: no limitations General appearance: alert, in no apparent distress Head exam: Present: normocephalic Eye exam: Present: normal appearance Neck exam: Present: normal inspection. Absent: tenderness, meningismus Respiratory exam: Present: normal lung sounds bilaterally Cardiovascular Exam: Present: regular rate, normal rhythm GI/Abdominal exam: Present: soft. Absent: tenderness Extremities exam: Present: normal inspection Neurological exam: Present: alert. Absent: motor sensory deficit Psychiatric exam: Present: normal affect, normal mood Skin exam: Present: normal color Course Vital Signs 08/15/23 08/15/23 09:35 10:48 Temperature 99 F Pulse Rate 70 80 Respiratory 18 18 Rate Blood Pressure 91/59 103/75 O2 Sat by Pulse 96 95 Oximetry Medical Decision Making - Medical Decision Making Was pt. sent in by a medical professional or institution (, PA, REPAIRER PUMP, urgent care, hospital, or penitentiary...) When possible be specific @ -No Did you speak to anyone other than the patient for history (EMS, parent, family, police, friend...)? What history was obtained from this source @ -No Did you review nursing and triage notes (agree or disagree)? Why? @ -I reviewed and agree with nursing and triage notes Were old charts reviewed (outside hosp., previous admission, EMS record, old EKG, old radiological studies, urgent care reports/EKG's, penitentiary records)? Report findings @ -Previous chest x-ray reviewed Differential Diagnosis (chest pain, altered mental status, abdominal pain women, abdominal pain men, vaginal bleeding, weakness, fever, dyspnea, syncope, headache, dizziness, GI bleed, back pain, seizure, CVA, palpatations, mental health, musculoskeletal)? @ -Differential Dyspnea: Coronary syndrome, arrhythmia, tamponade, asthma, COPD, pulmonary embolism, pneumonia, pneumothorax, pulmonary effusion, anaphylaxis, diabetic ketoacidosis, flailed chest, pulmonary contusion, diaphragmatic rupture, anemia, neuromuscular, this is not meant to be an all-inclusive list. EKG interpreted by me (3pts min.). @ -As above X-rays interpreted by me (1pt min.). @ -Chest x-ray shows no acute process CT interpreted by me (1pt min.). @ -None done U/S interpreted by me (1pt. min.). @ -None done What testing was considered but not performed or refused? (CT, X-rays, U/S, labs)? Why? @ -None What meds were considered but not given or refused? Why? @ -None Did you discuss the management of the patient with other professionals (professionals i.e. , PA, REPAIRER PUMP, lab, RT, psych nurse, 7th grade social studies teacher, mine car repairer, teacher, security flex utility officer, shelter case manager)? Give summary @ -No Was smoking cessation discussed for >3mins.? @ -No Was critical care preformed (if so, how long)? @ -No Were there social determinants of health that impacted care today? How? (Homelessness, low income, unemployed, alcoholism, drug addiction, transportation, low edu. Level, literacy, decrease access to med. care, correction, rehab)? @ -No Was there de-escalation of care discussed even if they declined (Discuss DNR or withdrawal of care, Hospice)? DNR status @ -No What co-morbidities impacted this encounter? (DM, HTN, Smoking, COPD, CAD, Cancer, CVA, ARF, Chemo, Hep., AIDS, mental health diagnosis, sleep apnea, morbid obesity)? @ -None Was patient admitted / discharged? Hospital course, mention meds given and route, prescriptions, significant lab abnormalities, going to OR and other pert inent info. @ -Patient reevaluated and updated. Patient will be prescribed paxlovid for COVID-19 infection. Urine culture ordered. Patient will be discharged with follow-up with primary care physician. Patient is advised to hold her Lipitor Undiagnosed new problem with uncertain prognosis? @ -No Drug Therapy requiring intensive monitoring for toxicity (Heparin, Nitro, Insulin, Cardizem)? @ -No Were any procedures done? @ -No Diagnosis/symptom? @ -covid 19 Acute, or Chronic, or Acute on Chronic? @ acute] Uncomplicated (without systemic symptoms) or Complicated (systemic symptoms)? @ -default Side effects of treatment? @ -No Exacerbation, Progression, or Severe Exacerbation? @ -No Poses a threat to life or bodily function? How? (Chest pain, USA, [place], pneumonia, PE, COPD, DKA, ARF, appy, cholecystitis, CVA, Diverticulitis, Homicidal, Suicidal, threat to staff... and all critical care pts) @ -No - Lab Data Lab Results 08/15/23 08/15/23 Range/Units 09:54 09:54 Urine Color Yellow Urine Appearance Cloudy H (Clear) Urine pH 6.0 (5.0-8.0) Ur Specific [place] 1.022 (1.001-1.035) Urine Protein Trace H (Negative) Urine Glucose (UA) Negative (Negative) Urine Ketones Negative (Negative) Urine Blood Negative (Negative) Urine Nitrite Positive H (Negative) Urine Bilirubin Negative (Negative) Urine Urobilinogen 2.0 (<2.0) mg/dL Ur Leukocyte Esterase Moderate H (Negative) Urine RBC 4 (0-5) /hpf Urine WBC 29 H (0-5) /hpf Ur Squamous Epith Cells 32 H (0-4) /hpf Urine Bacteria Few H (None) /hpf Urine Mucus Rare H (None) /hpf Influenza Type A (PCR) Not Detected (Not Detectd) Influenza Type B (PCR) Not Detected (Not Detectd) RSV (PCR) Not Detected (Not Detectd) SARS-CoV-2 (PCR) Detected A (Not Detectd) Disposition Clinical Impression: COVID-19 Disposition: HOME SELF-CARE Condition: Stable Instructions (If sedation given, give patient instructions): COVID-19 (Coronavirus Disease 2019) (ED) Additional Instructions: Hold Lipitor for 3 days following finishing Paxlovid. [id number] Tylenol and Motrin as needed. Please do follow-up with primary care physician in the next day or 2 for recheck. Return for difficulty breathing, not tolerating fluids or oral intake, worsening symptoms or any other concerns Prescriptions: Nirmatrelvir/Ritonavir [Paxlovid 300-100 mg Pack (Eua)] 3 each PO BID #30 each Is patient prescribed a controlled substance at d/c from ED?: No Referrals: Jean Morales MD [Primary Care Provider] - 1-2 days Time of Disposition: 11:19
[2023-08-15 10:48] LABS: Appearance,Urine Cloudy (Clear); Bacteria,Urine Few /hpf; Bilirubin,Urine Negative (Negative); Blood,Urine Negative (Negative); Color,Urine Yellow; Glucose,Urine (UA) Negative (Negative); Ketones,Urine Negative (Negative); Leukocyte Esterase,Urine Moderate (Negative); Mucus,Urine Rare /hpf; Nitrite,Urine Positive (Negative); Protein,Urine Trace (Negative); RBC,Urine 4 /hpf (0-5); Specific Gravity,Urine 1.022 (1.001-1.035); Squamous Epithelial Cell,Urine 32 /hpf (0-4); WBC,Urine 29 /hpf (0-5)
[2023-08-15 10:56] VITALS: BP 103/75; PULSE 80
--- NOTE | 2023-08-15 11:13 | XR ---
EXAMINATION TYPE: XR chest 2V DATE OF EXAM: 08/15/2023 COMPARISON: 05/06/2022 INDICATION: Cough TECHNIQUE: Frontal and lateral views of the chest are obtained. FINDINGS: The heart size is normal. The pulmonary vasculature is normal. The lungs are clear. IMPRESSION: 1. No acute pulmonary process.
[2023-08-15] MEDS ORDERED: ONDANSETRON ODT 4 MG TAB PO STA (11:14)
[2023-08-15] MEDS ORDERED: IBUPROFEN 600 MG TAB PO STA (11:14)
[2023-08-15] MEDS ORDERED: ONDANSETRON 4 MG ODT STARTER PACK 2 TAB BTL PO STA (11:15)
== END 2023-08-15 11:15 | disposition home or self-care (01) ==
LOC: EC 09:21
DX: U07.1 COVID-19 (principal); J45.909 Unspecified asthma, uncomplicated; F17.200 Nicotine dependence, unspecified, uncomplicated; Z86.59 Personal history of other mental and behavioral disorders; Z79.899 Other long term (current) drug therapy; Z91.030 Bee allergy status; Z88.7 Allergy status to serum and vaccine; Z88.8 Allergy status to other drugs, medicaments and biological substances
CPT/HCPCS: 81001; 87086; 87636; 71046; 99284; S0119

== ENCOUNTER 2023-09-01 09:00 | Emergency (ER) | payer OTHER ==
[2023-09-01 09:18] VITALS: TEMP 97.5
[2023-09-01] MEDS ORDERED: ONDANSETRON 4 MG/2 ML VIAL IVP STA (09:24)
[2023-09-01] MEDS ORDERED: KETOROLAC 15 MG/ML 1 ML VIAL IVP STA (09:24)
[2023-09-01] MEDS ORDERED: PANTOPRAZOLE 40 MG/10 ML VIAL IVP STA (09:24)
[2023-09-01] MEDS ORDERED: SODIUM CHLORIDE 0.9% 1,000 ML IV STA (09:24)
--- NOTE | 2023-09-01 09:37 | ED ---
General Adult HPI - General Chief complaint: Abdominal Pain Stated complaint: Abd Pain Time Seen by Provider: 09/01/23 09:01 Source: patient, RN notes reviewed, old records reviewed Mode of arrival: ambulatory Limitations: no limitations - History of Present Illness Initial comments: Patient is a 53-year-old female who is recovering from COVID-19 infection. No longer has upper respiratory symptoms, however has been having diarrhea with abdominal bloating for the last 2 days. Initially had Covid 2 weeks ago. Is feeling better at this point in terms of coughing however has he abdominal complaints. Is generalized abdominal discomfort. Has a history of hysterectomy as well as cholecystectomy. Is having nonbloody diarrhea. Still passing gas. He endorses nausea but no emesis. Denies any chest pain, shortness of breath. Denies any urinary complaints. Has a history of asthma, pleurisy, thyroid disorder. Presents for further evaluation at this time. Saw her PCP within the last 2 days he wanted to obtain a stool sample however is not feeling any better. - Related Data Home Medications Medication Instructions Recorded Confirmed Multivitamins, Thera [Multivitamin 1 tab PO DAILY 04/07/21 05/06/22 (formulary)] Atorvastatin Calcium [Lipitor] 20 mg PO DAILY 10/07/21 05/06/22 Cyanocobalamin (Vitamin B-12) 500 mcg PO DAILY 10/07/21 05/06/22 [Vitamin B-12] Previous Rx's Medication Instructions Recorded Nirmatrelvir/Ritonavir [Paxlovid 3 each PO BID #30 each 08/15/23 300-100 mg Pack (Eua)] Dicyclomine [Bentyl] 10 mg PO TID PRN 5 Days #15 capsule 09/01/23 Allergies Allergy/AdvReac Type Severity Reaction Status Date / Time bee venom protein (honey bee) Allergy Anaphylaxis Verified 09/01/23 09:04 influenza virus vaccine, Allergy Nausea & Verified 09/01/23 09:04 specific Vomiting & Diarrhea hydrocodone bitartrate AdvReac Confusion Verified 09/01/23 09:04 [From Vicodin] BLACK OLIVES Allergy Swelling Uncoded 09/01/23 09:04 Review of Systems ROS Statement: Those systems with pertinent positive or pertinent negative responses have been documented in the HPI. Review of Systems: CONST: Denies fever EYES: Denies blurry vision ENT: Denies nasal congestion C/V: Denies Chest pain RESP: Denies shortness of breath GI: Endorses abdominal pain : Denies dysuria SKIN: Denies rash. MSK: Denies joint pain. NEURO: Denies headache ROS Other: All systems not noted in ROS Statement are negative. Past Medical History Past Medical History: Asthma, Cancer, Chest Pain / Angina, Skin Disorder, Thyroid Disorder Additional Past Medical History / Comment(s): Ovarian cancer w/ surgery. hx of anorexia as a teenager, Pleurisy, Kidney stones occ, Migraines since age 9, had head injury. Hypoglycemic. Lt hand fingernails coming off. Hypothyroid. History of Any Multi-Drug Resistant Organisms: None Reported Past Surgical History: Cholecystectomy, Hysterectomy, Orthopedic Surgery Additional Past Surgical History / Comment(s): Lt oophorectomy. Rt KNEE ARTHROSCOPY Past Anesthesia/Blood Transfusion Reactions: Previous Problems w/ Anesthesia Additional Past Anesthesia/Blood Transfusion Reaction / Comment(s): Anesthesia makes BP drop really low. Past Psychological History: Anxiety Smoking Status: Current every day smoker, Light tobacco smoker Past Alcohol Use History: None Reported Past Drug Use History: None Reported - Past Family History Mother Family Medical History: Diabetes Mellitus, Deep Vein Thrombosis (DVT) Additional Family Medical History / Comment(s): Mother passed a year ago. Father Family Medical History: Coronary Artery Disease (CAD), Hypertension General Exam - General Exam Comments Initial Comments: General: Appears in mild to moderate discomfort. HEAD: Normal with no signs of head trauma. EYES: PERRLA, EOMI, conjunctiva normal, no discharge. ENT: Hearing grossly intact, normal oropharynx. RESPIRATORY: Clear breath sounds bilaterally. No wheezes, rales, or rhonchi. C/V: Regular rate and rhythm. S1 and S2 auscultated, no edema, peripheral pulses 2+ and intact throughout ABD: Abdomen is soft. Patient is tender to palpation diffusely with some bloating. No focal tenderness. No guarding. No rebound tenderness. No peritoneal signs. EXT: Normal range of motion, no obvious deformity SKIN: No rashes or lesions observed on exposed skin. NEURO: Alert and oriented x 4. Limitations: no limitations Course Vital Signs 09/01/23 09/01/23 09/01/23 09:01 09:36 11:04 Temperature 97.5 F L Pulse Rate 85 77 76 Respiratory 18 16 20 Rate Blood Pressure 110/70 102/71 93/64 O2 Sat by Pulse 98 99 98 Oximetry 09/01/23 11:28 Temperature Pulse Rate 68 Respiratory 16 Rate Blood Pressure 124/68 O2 Sat by Pulse 98 Oximetry Medical Decision Making - Medical Decision Making Was pt. sent in by a medical professional or institution (SANDRA Sandoval, [facility], urgent care, hospital, or penitentiary...) When possible be specific @ -No Did you speak to anyone other than the patient for history (EMS, parent, family, police, friend...)? What history was obtained from this source @ -No Did you review nursing and triage notes (agree or disagree)? Why? @ -I reviewed and agree with nursing and triage notes Were old charts reviewed (outside hosp., previous admission, EMS record, old EKG, old radiological studies, urgent care reports/EKG's, penitentiary records)? Report findings @ -Charts reviewed Differential Diagnosis (chest pain, altered mental status, abdominal pain women, abdominal pain men, vaginal bleeding, weakness, fever, dyspnea, syncope, headache, dizziness, GI bleed, back pain, seizure, CVA, palpatations, mental health, musculoskeletal)? @ -Differential Abdominal Pain Women: Appendicitis, Cholecystitis, diverticulosis, ischemic bowel, pancreatitis, hepatitis, UTI, gastroenteritis, AAA, incarcerated hernia, bowel obstruction, constipation, inflammatory bowel, hepatitis, peptic ulcer disease, splenic infarction, perforated viscus, vulvitis, ovarian torsion, PID, kidney stone, placenta abruption, this is not meant to be an all-inclusive list EKG interpreted by me (3pts min.). @ -As above X-rays interpreted by me (1pt min.). @ -None done CT interpreted by me (1pt min.). 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 U/S interpreted by me (1pt. min.). @ -None done What testing was considered but not performed or refused? (CT, X-rays, U/S, labs)? Why? @ -None What meds were considered but not given or refused? Why? @ -None Did you discuss the management of the patient with other professionals (professionals i.e. SANDRA Sandoval, [employer], lab, RT, psych nurse, outreach and education social worker, glass cutter hand, teacher, promotion officer, telephonic case manager)? Give summary @ -No Was smoking cessation discussed for >3mins.? @ -No Was critical care preformed (if so, how long)? @ -No Were there social determinants of health that impacted care today? How? (Homelessness, low income, unemployed, alcoholism, drug addiction, transp ortation, low edu. Level, literacy, decrease access to med. care, fci, rehab)? @ -No Was there de-escalation of care discussed even if they declined (Discuss DNR or withdrawal of care, Hospice)? DNR status @ -No What co-morbidities impacted this encounter? (DM, HTN, Smoking, COPD, CAD, Cancer, CVA, ARF, Chemo, Hep., AIDS, mental health diagnosis, sleep apnea, morbid obesity)? @ -None Was patient admitted / discharged? Hospital course, mention meds given and route, prescriptions, significant lab abnormalities, going to OR and other pertinent info. @ -Based on the patient's presentation and physical exam, presents emergency Department complaining of abdominal pain. We will obtain abdominal laboratory studies. Screening EKG will also be obtained. She is having diarrhea as well. We will symptomatically she with IV Toradol, Zofran, Protonix, fluids. Patient was in agreement this plan. Vital signs currently within acceptable limits. CT imaging will be obtained. Patient's laboratory studies are unremarkable. Slight leukocytosis of 11.3. Patient's CT imaging remarkable for nonspecific colitis as well as mesenteric panniculitis. I discussed results with the patient. She'll be given a one-time dose of the steroid for the mesenteric colitis. Recommended supportive care for her colitis. She was in agreement with this plan. Strict return precautions discussed. She will follow up with their PCP. I will provide the patient with a prescription for Bentyl. I instructed the patient to follow up with their PCP in the next 1-3 days. I explained that the patient should return to the emergency department if they experience any worsening symptoms. Strict return precautions were discussed with the patient. The patient expressed understanding of these instructions. I answered all questions that the patient had. The patient was discharged home in good condition with their prescriptions and follow up information. Undiagnosed new problem with uncertain prognosis? @ -No Drug Therapy requiring intensive monitoring for toxicity (Heparin, Nitro, Insulin, Cardizem)? @ -No Were any procedures done? @ -No Diagnosis/symptom? @ -Diarrhea, colitis, mesenteric panniculitis Acute, or Chronic, or Acute on Chronic? @ -Acute Uncomplicated (without systemic symptoms) or Complicated (systemic symptoms)? @ -Complicated Side effects of treatment? @ -none Exacerbation, Progression, or Severe Exacerbation] @ -no Poses a threat to life or bodily function? @ -Unlikely - Lab Data Result diagrams: 09/01/23 09:24 09/01/23 09: Lab Results 09/01/23 09/01/23 09/01/23 Range/Units :24 :08 05:24 WBC 11.3 H (3.8-10.6) k/uL RBC 4.53 (3.80-5.40) m/uL Hgb 14.1 (11.4-16.0) gm/dL Hct 41.4 (34.0-46.0) % MCV 91.3 (80.0-100.0) fL MCH 31.1 (25.0-35.0) pg MCHC 34.1 (31.0-37.0) g/dL RDW 13.9 (11.5-15.5) % Plt Count 305 (150-450) k/uL MPV 8.8 Neutrophils % 51 % Lymphocytes % 37 % Monocytes % 6 % Eosinophils % 2 % Basophils % 1 % Neutrophils # 5.8 (1.3-7.7) k/uL Lymphocytes # 4.2 (1.0-4.8) k/uL Monocytes # 0.7 (0-1.0) k/uL Eosinophils # 0.2 (0-0.7) k/uL Basophils # 0.1 (0-0.2) k/uL PT 11.1 (10.0-12.5) sec INR 1.0 (<1.2) APTT 26.3 (22.0-30.0) sec Sodium (137-145) mmol/L Potassium (3.5-5.1) mmol/L Chloride (98-107) mmol/L Carbon Dioxide (22-30) mmol/L Anion Gap mmol/L BUN (7-17) mg/dL Creatinine (0.52-1.04) mg/dL Est GFR (CKD-EPI)AfAm (>60 ml/min/1.73 sqM) Est GFR (CKD-EPI)NonAf (>60 ml/min/1.73 sqM) Glucose (74-99) mg/dL Plasma Lactic Acid Mj (0.7-2.0) mmol/L Calcium (8.4-10.2) mg/dL Total Bilirubin (0.2-1.3) mg/dL AST (14-36) U/L ALT (4-34) U/L Alkaline Phosphatase (38-126) U/L Total Protein (6.3-8.2) g/dL Albumin (3.5-5.0) g/dL Amylase (30-110) U/L Lipase (23-300) U/L Urine Color Colorless Urine Appearance Clear (Clear) Urine pH 6.0 (5.0-8.0) Ur Specific [place] 1.003 (1.001-1.035) Urine Protein Negative (Negative) Urine Glucose (UA) Negative (Negative) Urine Ketones Negative (Negative) Urine Blood Negative (Negative) Urine Nitrite Negative (Negative) Urine Bilirubin Negative (Negative) Urine Urobilinogen <2.0 (<2.0) mg/dL Ur Leukocyte Esterase Negative (Negative) Influenza Type A (PCR) (Not Detectd) Influenza Type B (PCR) (Not Detectd) RSV (PCR) (Not Detectd) SARS-CoV-2 (PCR) (Not Detectd) 09/01/23 09/01/23 09/01/23 Range/Units 09:24 09:24 09:24 WBC (3.8-10.6) k/uL RBC (3.80-5.40) m/uL Hgb (11.4-16.0) gm/dL Hct (34.0-46.0) % MCV (80.0-100.0) fL MCH (25.0-35.0) pg MCHC (31.0-37.0) g/dL RDW (11.5-15.5) % Plt Count (150-450) k/uL MPV Neutrophils % % Lymphocytes % % Monocytes % % Eosinophils % % Basophils % % Neutrophils # (1.3-7.7) k/uL Lymphocytes # (1.0-4.8) k/uL Monocytes # (0-1.0) k/uL Eosinophils # (0-0.7) k/uL Basophils # (0-0.2) k/uL PT (10.0-12.5) sec INR (<1.2) APTT (22.0-30.0) sec Sodium 139 (137-145) mmol/L Potassium 3.6 (3.5-5.1) mmol/L Chloride 106 (98-107) mmol/L Carbon Dioxide 25 (22-30) mmol/L Anion Gap 8 mmol/L BUN 12 (7-17) mg/dL Creatinine 1.09 H (0.52-1.04) mg/dL Est GFR (CKD-EPI)AfAm 68 (>60 ml/min/1.73 sqM) Est GFR (CKD-EPI)NonAf 59 (>60 ml/min/1.73 sqM) Glucose 92 (74-99) mg/dL Plasma Lactic Acid Mj 0.9 (0.7-2.0) mmol/L Calcium 8.7 (8.4-10.2) mg/dL Total Bilirubin 1.0 (0.2-1.3) mg/dL AST 38 H (14-36) U/L ALT 22 (4-34) U/L Alkaline Phosphatase 127 H (38-126) U/L Total Protein 7.3 (6.3-8.2) g/dL Albumin 4.1 (3.5-5.0) g/dL Amylase 64 (30-110) U/L Lipase 123 (23-300) U/L Urine Color Urine Appearance (Clear) Urine pH (5.0-8.0) Ur Specific [place] (1.001-1.035) Urine Protein (Negative) Urine Glucose (UA) (Negative) Urine Ketones (Negative) Urine Blood (Negative) Urine Nitrite (Negative) Urine Bilirubin (Negative) Urine Urobilinogen (<2.0) mg/dL Ur Leukocyte Esterase (Negative) Influenza Type A (PCR) Not Detected (Not Detectd) Influenza Type B (PCR) Not Detected (Not Detectd) RSV (PCR) Not Detected (Not Detectd) SARS-CoV-2 (PCR) Not Detected (Not Detectd) - EKG Data -: EKG Interpreted by Me EKG Comments: 12-lead Electrocardiogram Interpretation Note EKG was reviewed and interpreted by myself. 12-lead ECG performed at 0934 is interpreted by me as revealing normal sinus rhythm at a rate of 76 beats per minute. [employer] is normal. [place] interval is 177 ms, QRS duration is 97 ms, QTc is 402 ms.. There were no ST or T wave abnormalities to suggest myocardial ischemia or injury. R wave progression across the precordium was satisfactory. By my interpretation this EKG is non-diagnostic for acute ischemia. Disposition Clinical Impression: Mesenteric panniculitis, Diarrhea, Colitis Disposition: HOME SELF-CARE Condition: Fair Instructions (If sedation given, give patient instructions): Colitis (ED) Prescriptions: Dicyclomine [Bentyl] 10 mg PO TID PRN 5 Days #15 capsule PRN Reason: Pain Is patient prescribed a controlled substance at d/c from ED?: No Referrals: Jean Morales MD [Primary Care Provider] - 1-2 days Time of Disposition: 11:02
[2023-09-01 09:54] LABS: Appearance,Urine Clear (Clear); Basophils # (A) 0.1 k/uL (0-0.2); Basophils % (A) 1 %; Bilirubin,Urine Negative (Negative); Blood,Urine Negative (Negative); Color,Urine Colorless; Eosinophils # (A) 0.2 k/uL (0-0.7); Eosinophils % (A) 2 %; Glucose,Urine (UA) Negative (Negative); HCT 41.4 % (34.0-46.0); HGB 14.1 gm/dL (11.4-16.0); Ketones,Urine Negative (Negative); Leukocyte Esterase,Urine Negative (Negative); Lymphocytes # (A) 4.2 k/uL (1.0-4.8); Lymphocytes % (A) 37 %; MCH 31.1 pg (25.0-35.0); MCHC 34.1 g/dL (31.0-37.0); MCV 91.3 fL (80.0-100.0); Mean Platelet Volume 8.8; Monocytes # (A) 0.7 k/uL (0-1.0); Monocytes % (A) 6 %; Neutrophils # (A) 5.8 k/uL (1.3-7.7); Neutrophils % (A) 51 %; Nitrite,Urine Negative (Negative); Platelet Count 305 k/uL (150-450); Protein,Urine Negative (Negative); RBC 4.53 m/uL (3.80-5.40); RDW 13.9 % (11.5-15.5); Specific Gravity,Urine 1.003 (1.001-1.035); Urobilinogen,Urine <2.0 mg/dL (<2.0); WBC 11.3 k/uL (3.8-10.6)
[2023-09-01 10:05] LABS: Partial Thromboplastin Time 26.3 sec (22.0-30.0); Prothrombin Time 11.1 sec (10.0-12.5)
[2023-09-01 10:07] LABS: ALT 22 U/L (4-34); AST 38 U/L (14-36); African American GFR (CKD) 68 (>60 ml/min/1.73 sqM); Albumin 4.1 g/dL (3.5-5.0); Alkaline Phosphatase 127 U/L (38-126); Amylase 64 U/L (30-110); Anion Gap 8 mmol/L; Blood Urea Nitrogen 12 mg/dL (7-17); Calcium 8.7 mg/dL (8.4-10.2); Carbon Dioxide 25 mmol/L (22-30); Chloride 106 mmol/L (98-107); Glucose 92 mg/dL (74-99); Lipase 123 U/L (23-300); Non-African American GFR(CKD) 59 (>60 ml/min/1.73 sqM); Potassium 3.6 mmol/L (3.5-5.1); Sodium 139 mmol/L (137-145); Total Protein 7.3 g/dL (6.3-8.2)
--- NOTE | 2023-09-01 10:31 | CT ---
EXAMINATION TYPE: CT abdomen pelvis w con DATE OF EXAM: 09/01/2023 HISTORY: Abdominal pain and bloating x [address] DLP: 591.9mGycm Automated Exposure Control for Dose Reduction was Utilized. CONTRAST: CT scan of the abdomen and pelvis is performed with IV Contrast, patient injected with 100 ml mL of I sovue 300. COMPARISON: Prior CT April 15, 2022 FINDINGS: LUNG BASES: No significant abnormality is appreciated. LIVER/GB: Cholecystectomy clips are redemonstrated. PANCREAS: No significant abnormality is seen. SPLEEN: No significant abnormality is seen. ADRENALS: No significant abnormality is seen. KIDNEYS: No significant abnormality is seen. BOWEL: Fluid prominent cecum. Fluid throughout the colon is present which is abnormal finding. No abn ormal small or large bowel dilatation.. UTERUS/ADNEXA: Uterus is surgically absent. Scattered tiny bilateral pelvic phleboliths. LYMPH NODES: No greater than 1cm abdominal or pelvic lymph nodes are appreciated. Prominent but subce ntimeter lymph nodes throughout the abdominal mesentery with some ill-defined fluid and fat stranding . OSSEOUS STRUCTURES: No significant abnormality is seen. OTHER: No significant additional abnormality is seen. IMPRESSION: 1. Fluid throughout a majority of the colon which is abnormal finding. This may be seen as a product of diarrhea and/or diffuse uncomplicated colitis. 2. Debby mesentery appearance. Findings suggestive of a mesenteric panniculitis. Correlate clinically .
[2023-09-01] MEDS ORDERED: HYDROmorphone 0.5 MG/0.5 ML SYRINGE IVP STA (10:57)
[2023-09-01] MEDS ORDERED: ONDANSETRON 4 MG ODT STARTER PACK 2 TAB BTL PO STA (10:57)
[2023-09-01] MEDS ORDERED: methylPREDNISolone SOD SUCCI 40 MG/ML 1 ML VIAL IV STA (11:17)
[2023-09-01 11:49] VITALS: BP 124/68; PULSE 68; RESP 16
== END 2023-09-01 11:36 | disposition home or self-care (01) ==
LOC: EC 09:00
DX: K65.4 Sclerosing mesenteritis (principal); K52.9 Noninfective gastroenteritis and colitis, unspecified; J45.909 Unspecified asthma, uncomplicated; F17.200 Nicotine dependence, unspecified, uncomplicated; Z86.59 Personal history of other mental and behavioral disorders; Z20.822 Contact with and (suspected) exposure to COVID-19; Z91.030 Bee allergy status; Z88.5 Allergy status to narcotic agent; Z88.7 Allergy status to serum and vaccine
CPT/HCPCS: 36415; 93005; 80053; 82150; 83605; 83690; 85025; 85610; 85730; 81003; 87636; 74177; 99285; 96374; 96375 ×4; J2920; J2405; J1885; S0119; C9113; J1170; Q9967

== ENCOUNTER → 2023-09-01 | Outpatient (CLI) | payer OTHER ==
--- NOTE | 2023-09-01 14:10 | XR ---
EXAMINATION TYPE: XR abdomen 2V, XR chest 2V DATE OF EXAM: 09/01/2023 COMPARISON: 12/05/2017 and chest 08/15/2023 HISTORY: 53-year-old female J44.9, R00.2, R10.9, abdominal pain FINDINGS: CHEST: Heart normal size. Aorta and pulmonary vasculature within normal limits. No consolidation or pleural effusion. ABDOMEN: No evidence for free intraperitoneal air. Air-fluid levels are present throughout the colon. No signi ficant stool burden. No dilated small bowel loops. Calcifications in both sides of the abdomen measuring up to 6 mm on the left and 6 mm on the right. A dditional multiple pelvic phleboliths. Cholecystectomy clips. IMPRESSION: 1. Chest: No acute cardiopulmonary process. 2. Abdomen: Air-fluid levels throughout the colon. Consider diarrheal state/enteritis or generalized ileus. No evidence for free air or bowel obstruction. Multiple calcifications in both sides of the a bdomen measuring up to 6 mm likely phleboliths as they were present on the prior 2018 exam well.
[2023-09-01 16:11] LABS: Basophils # (A) 0.05 X 10*3/uL (0.00-0.10); Basophils % (A) 0.5 %; Eosinophils # (A) 0.17 X 10*3/uL (0.04-0.35); Eosinophils % (A) 1.5 %; HCT 42.2 % (37.2-46.3); HGB 13.8 g/dL (12.0-15.0); Lymphocytes # (A) 4.24 X 10*3/uL (0.90-5.00); Lymphocytes % (A) 38.6 %; MCH 30.6 pg (27.0-32.0); MCHC 32.7 g/dL (32.0-37.0); MCV 93.6 FL (80.0-97.0); Monocytes # (A) 1.03 X 10*3/uL (0.20-1.00); Monocytes % (A) 9.4 %; NRBC Per 100 WBC 0 X 10*3/uL (0.00-0.01); Neutrophils # (A) 5.45 X 10*3/uL (1.80-7.70); Neutrophils % (A) 49.6 %; Platelet Count 307 X 10*3/uL (140-440); RBC 4.51 X 10*6/uL (4.10-5.20); RDW 13.9 % (11.5-14.5); WBC 10.98 X 10*3/uL (4.50-10.00)
[2023-09-01 16:20] LABS: ALT 19 U/L (8-44); AST 34 U/L (13-35); Albumin 4.2 g/dL (3.8-4.9); Albumin/Globulin Ratio 1.68 Ratio (1.60-3.17); Alkaline Phosphatase 119 U/L (41-126); BUN/Creat Ratio 9.25 Ratio (12.00-20.00); Blood Urea Nitrogen 11.1 mg/dL (9.0-27.0); Carbon Dioxide 23.6 mmol/L (21.6-31.8); Chloride 102 mmol/L (96-109); Globulin 2.5 g/dL (1.6-3.3); Glucose 88 mg/dL (70-110); Lipase 41 U/L (14-63); Potassium 3.8 mmol/L (3.5-5.5); Sodium 138 mmol/L (135-145); Total Bilirubin 0.8 mg/dL (0.3-1.2); Total Protein 6.7 g/dL (6.2-8.2)
== END | disposition home or self-care (01) ==
LOC: RADXRMAIN 08:21
PROVIDERS: ATTEND Internal Medicine
DX: J44.9 Chronic obstructive pulmonary disease, unspecified (principal); R00.2 Palpitations; R10.9 Unspecified abdominal pain
CPT/HCPCS: 71046; 74019; 80053; 83690; 85025

== ENCOUNTER → 2023-09-12 | Outpatient (CLI) | payer OTHER ==
--- NOTE | 2023-09-12 11:20 | XR ---
EXAMINATION TYPE: XR abdomen 2V DATE OF EXAM: 09/12/2023 COMPARISON: 09/01/2023 HISTORY: Pain TECHNIQUE: Single supine KUB image of the abdomen is obtained FINDINGS: No dilated bowel however there are a few scattered air-fluid levels seen. Overall appearance is impro jl from prior study. Gas and fecal material is seen in non-distended colon. No convincing evidence for pneumoperitoneum. No unusual calcifications. The lung bases are clear. The osseous structures are intact. IMPRESSION: 1. No dilated bowel however there are a few scattered air-fluid levels seen. Overall appearance is i mproved from prior study. Correlate for improving ileus.
[2023-09-12 18:43] LABS: Basophils # (A) 0.09 X 10*3/uL (0.00-0.10); Eosinophils # (A) 0.32 X 10*3/uL (0.04-0.35); Eosinophils % (A) 3.6 %; HCT 43.7 % (37.2-46.3); HGB 14.2 g/dL (12.0-15.0); Lymphocytes % (A) 53.1 %; MCH 30.7 pg (27.0-32.0); MCHC 32.5 g/dL (32.0-37.0); MCV 94.6 FL (80.0-97.0); Mean Platelet Volume 10.5 FL (9.5-12.2); Monocytes # (A) 0.63 X 10*3/uL (0.20-1.00); Monocytes % (A) 7.1 %; NRBC Per 100 WBC 0 X 10*3/uL (0.00-0.01); Neutrophils # (A) 3.08 X 10*3/uL (1.80-7.70); Neutrophils % (A) 34.9 %; Platelet Count 291 X 10*3/uL (140-440); RBC 4.62 X 10*6/uL (4.10-5.20); RDW 14.3 % (11.5-14.5); WBC 8.85 X 10*3/uL (4.50-10.00)
[2023-09-12 19:04] LABS: BUN/Creat Ratio 10.09 Ratio (12.00-20.00); Blood Urea Nitrogen 11.1 mg/dL (9.0-27.0); Calcium 9.6 mg/dL (8.7-10.3); Carbon Dioxide 25.9 mmol/L (21.6-31.8); Chloride 101 mmol/L (96-109); Glucose 82 mg/dL (70-110); Magnesium 2.5 mg/dL (1.5-2.4); Potassium 4.8 mmol/L (3.5-5.5); Sodium 139 mmol/L (135-145); T4, Free (Free Thyroxine) 0.13 ng/dL (0.80-1.80)
== END | disposition home or self-care (01) ==
LOC: RADXRMAIN 10:40
PROVIDERS: ATTEND Internal Medicine
DX: K59.09 Other constipation (principal); E03.9 Hypothyroidism, unspecified; D64.9 Anemia, unspecified
CPT/HCPCS: 36415; 74019; 80048; 83735; 84439; 84443; 85025; 86376; 86800

== ENCOUNTER → 2023-09-23 | Outpatient (CLI) | payer OTHER ==
--- NOTE | 2023-09-26 19:30 | MM ---
Reason for Exam: Screening (asymptomatic). Last mammogram was performed 2 year(s) and 5 month(s) ago. Patient History: Menarche at age 15. First Full-Term at age 16. Postmenopausal. Ovarian cancer, age 25. Other cancer. Risk Values: Rhonda 5 year model risk: 0.7%. NCI Lifetime model risk: 5.8%. Prior Study Comparison: 04/17/2021 Bilateral Screening Mammogram, [facility]. Tissue Density: There are scattered fibroglandular densities. Findings: Analyzed By CAD. There is no suspicious group of microcalcifications or new suspicious mass in either breast. Overall Assessment: Negative, BI-RAD 1 Management: Screening Mammogram of both breasts in 1 year. . Patient should continue monthly self-breast exams. A clinical breast exam by your physician is recommended on an annual basis. This exam should not preclude additional follow-up of suspicious palpable abnormalities. Note on Rhonda scores and lifetime risk: 1. A Rhonda score greater than 3% is considered moderate risk. If this is the case, consider specialist referral to assess eligibility for a risk reducing agent. 2. If overall lifetime risk for the development of breast cancer is 20% or higher, the patient may qualify for future screening with alternating mammogram and breast MRI. Electronically signed and approved by: Franci Whitley M.D. Radiologist
== END | disposition home or self-care (01) ==
LOC: RADMAMWWP 07:20
PROVIDERS: ATTEND Internal Medicine
DX: Z12.31 Encounter for screening mammogram for malignant neoplasm of breast (principal); Z78.0 Asymptomatic menopausal state
CPT/HCPCS: 77067

== ENCOUNTER → 2025-02-20 | Outpatient (CLI) | payer OTHER ==
[2025-02-20 15:26] LABS: HCT 38.9 % (37.2-46.3); HGB 12.5 g/dL (12.0-15.0); MCH 30.0 pg (27.0-32.0); MCHC 32.1 g/dL (32.0-37.0); MCV 93.3 FL (80.0-97.0); NRBC Per 100 WBC 0 X 10*3/uL (0.00-0.01); Platelet Count 432 X 10*3/uL (140-440); RBC 4.17 X 10*6/uL (4.10-5.20); RDW 12.1 % (11.5-14.5); WBC 9.78 X 10*3/uL (4.50-10.00)
[2025-02-20 15:58] LABS: BUN/Creat Ratio 10.33 Ratio (12.00-20.00); Blood Urea Nitrogen 9.3 mg/dL (9.0-27.0); Creatine Kinase 51 U/L (26-186); Glucose 85 mg/dL (70-110); Sodium 140 mmol/L (135-145)
[2025-02-20 15:59] LABS: Anion Gap 12.70 mmol/L (4.00-12.00); Calcium 9.6 mg/dL (8.7-10.3); Carbon Dioxide 21.3 mmol/L (21.6-31.8); Chloride 106 mmol/L (96-109); Potassium 4.4 mmol/L (3.5-5.5); T4, Free (Free Thyroxine) 1.60 ng/dL (0.80-1.80)
[2025-02-20 16:02] LABS: Neutrophils % (M) 45 %
[2025-02-20 16:03] LABS: Basophils # (M) 0.10 X 10*3/uL (0.00-0.10); Eosinophils # (M) 0.78 X 10*3/uL (0.04-0.35); Lymphocytes # (M) 4.11 X 10*3/uL (0.90-5.00); Monocytes # (M) 0.39 X 10*3/uL (0.20-1.00); Neutrophils # (M) 4.40 X 10*3/uL (1.80-7.70); RBC Morphology Normal (Normal)
== END | disposition home or self-care (01) ==
LOC: LABWHC1 11:46
PROVIDERS: ATTEND Internal Medicine
DX: G43.909 Migraine, unspecified, not intractable, without status migrainosus (principal); J32.9 Chronic sinusitis, unspecified; M62.82 Rhabdomyolysis; N18.30 Chronic kidney disease, stage 3 unspecified
CPT/HCPCS: 36415; 80048; 82550; 84439; 84443; 85025; 85652; 86140